=== PATIENT | female | born 1935 | race Caucasian/White ===

== ENCOUNTER → 2019-10-01 13:54 | Outpatient (BNVA) | payer MEDICARE, SELFPAY | PROVIDERS: Family Provider Nurse Practitioner; PCP Nurse Practitioner; Visit Provider Nurse Practitioner | DX: M79.604 Pain in right leg (principal) | CPT/HCPCS: 73590 ==

== ENCOUNTER 2019-10-28 06:00 | Outpatient (RCR) | payer MEDICARE, SELFPAY | END 2019-11-25 23:59 | disposition home or self-care (01) | LOC: APT 06:00 | PROVIDERS: Family Provider Nurse Practitioner; PCP Nurse Practitioner; Referring Provider Nurse Practitioner Family; Visit Provider Nurse Practitioner Family | DX: M79.604 Pain in right leg (principal); R29.6 Repeated falls | CPT/HCPCS: 97110; 97163 ==

== ENCOUNTER → 2020-02-16 13:41 | Outpatient (BNVA) | payer MEDICARE, SELFPAY | PROVIDERS: Family Provider Nurse Practitioner; PCP Nurse Practitioner; Visit Provider Nurse Practitioner Family | DX: I10 Essential (primary) hypertension (principal); F41.1 Generalized anxiety disorder; M81.0 Age-related osteoporosis without current pathological fracture | CPT/HCPCS: 80053; 80061; 82306; 84443; 85025 ==

== ENCOUNTER → 2020-02-24 15:23 | Outpatient (BNVA) | payer MEDICARE, SELFPAY | PROVIDERS: Family Provider Nurse Practitioner; PCP Nurse Practitioner; Visit Provider Nurse Practitioner Family | DX: M81.0 Age-related osteoporosis without current pathological fracture (principal); E78.5 Hyperlipidemia, unspecified; S89.92XA Unspecified injury of left lower leg, initial encounter; L08.9 Local infection of the skin and subcutaneous tissue, unspecified; M11.262 Other chondrocalcinosis, left knee | CPT/HCPCS: 73562 ==

== ENCOUNTER 2020-03-19 15:45 | Outpatient (CLI) | payer MEDICARE, SELFPAY ==
--- NOTE | 2020-03-19 16:15 | XR_ITS ---
WS: [id number] SCREENING DEXA SCAN [employer] CLINICAL INFORMATION: osteoporosis COMPARISON: 015 FINDINGS: The L1-L4 bone mineral density measures 1.417 g/cm2. This corresponds to a T score score of 2.0 and Z score of 3.9. Left femoral neck bone mineral density measures 1.046 g/cm2. This corresponds to a T score of 0.3 and Z score of 2.6. Right femoral neck bone mineral density measures 1.104 g/cm2. This corresponds to a T score 0.8of and Z score of 3.0. Mean femoral neck bone mineral density measures 1.075 g/cm2. This corresponds to a T score of 0.5 and Z score of 2.8. XR/XR DEXA axial skeleton* [id number] IMPRESSION: Normal bone mineralization. Patient's FRAX calculated 10 year probability for major osteoporotic fracture i s 12.3 % and osteoporotic hip fracture is 2.9%.
== END 2020-03-19 15:46 | disposition home or self-care (01) ==
LOC: RADWPI 15:55
PROVIDERS: Family Provider Nurse Practitioner; PCP Nurse Practitioner; Visit Provider Nurse Practitioner Family
DX: M81.0 Age-related osteoporosis without current pathological fracture (principal)
CPT/HCPCS: 77080

== ENCOUNTER → 2020-06-16 15:30 | Outpatient (BNVA) | payer MEDICARE, SELFPAY | PROVIDERS: Family Provider Nurse Practitioner; PCP Nurse Practitioner; Visit Provider Nurse Practitioner Family | DX: Z11.59 Encounter for screening for other viral diseases (principal) | CPT/HCPCS: 87635 ==

== ENCOUNTER → 2020-09-06 11:09 | Outpatient (BNVA) | payer MEDICARE, SELFPAY | PROVIDERS: Family Provider Nurse Practitioner; PCP Nurse Practitioner; Visit Provider Nurse Practitioner Family | DX: R07.9 Chest pain, unspecified (principal); F41.1 Generalized anxiety disorder; I10 Essential (primary) hypertension; E78.5 Hyperlipidemia, unspecified; Z79.899 Other long term (current) drug therapy | CPT/HCPCS: 71046; 80053; 84443; 84484; 85025 ==

== ENCOUNTER 2020-09-07 10:27 | Inpatient (IN) | payer MEDICARE, SELFPAY ==
[2020-09-07] VITALS (12 sets, daily range): BP systolic 123–180; BP diastolic 53–90; PULSE 58–74; RESP 15–22; TEMP 36.5–36.8; O2SAT 97–99; BMI 27.8
--- NOTE | 2020-09-07 10:52 | ECG_ITS ---
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 Measurements Intervals [place] Rate: 62 P: 59 MN: 141 QRS: 59 QRSD: 74 T: 64 QT: 397 QTc: 405 Interpretive Statements SINUS RHYTHM SEPTAL MYOCARDIAL INFARCTION , OF INDETERMINATE AGE [40+ ms Q WAVE IN V1/V2] No previous ECG available for comparison Electronically Signed On 09-07-2020 21:35:23 BODY WORKER by Anatoliy Brannon M.D. [id number] f
--- NOTE | 2020-09-07 10:52 | XRR_ITS ---
PROCEDURE INFORMATION: Exam: XR Chest, 1 View Exam date and time: 09/07/2020 10:53 AM Age: 84 years old Clinical indication: Dyspnea; Chest pain; Type not specified; Additional info: Chest pain/dyspnea TECHNIQUE: Imaging protocol: XR of the chest Views: 1 view. COMPARISON: CR XR chest 2V* [id number] 09/06/2020 11:09 AM FINDINGS: Lungs: No pneumonia or pulmonary edema. Pleural space: No pleural effusion or pneumothorax. Heart/Mediastinum: The cardiac silhouette is not enlarged. The mediastinal contours are normal. Bones/joints: No acute osseous abnormality. XR/XR chest 1V portable [id number] IMPRESSION: No acute abnormality.
[2020-09-07 11:12] LABS: Basophils # 0.1 10^3/uL (0.0-0.1); Basophils % 0.9 %; Eosinophils # 0.3 10^3/uL (0.0-0.8); Eosinophils % 5.1 %; Hematocrit 37.1 % (37.0-47.0); Hemoglobin 11.8 g/dL (11.5-15.3); Lymphocytes # 2.1 10^3/uL (0.8-4.8); Lymphocytes % 37.2 %; Mean Corpuscular HGB Conc 31.8 g/dL (30.0-36.0); Mean Corpuscular Hemoglobin 30.7 pg (28.0-34.0); Mean Corpuscular Volume 96.6 fL (81-99); Mean Platelet Volume 10.4 fL (7.4-10.4); Monocytes # 0.6 10^3/uL (0.2-0.9); Monocytes % 9.6 %; Neutrophils # 2.68 10^3/uL (1.8-7.7); Nucleated Red Blood Cells % 0 %; Platelet Count 196 10^3/cmm (130-400); Red Blood Count 3.84 10^6/uL (4.1-5.3); Red Cell Distribution Width 12.7 % (12.1-15.1); White Blood Count 5.7 10^3/uL (4.0-10.0)
[2020-09-07 11:23] LABS: Alanine Aminotransferase 13 U/L (0-33); Albumin Level 3.8 g/dL (3.5-5.2); Alkaline Phosphatase 53 IU/L (35-105); Anion Gap 14.6 (5-19); Aspartate Amino Transferase 20 U/L (0-32); Blood Urea Nitrogen 20 mg/dL (8-23); Carbon Dioxide 25 mmol/L (22-29); Chloride 104 mmol/L (98-107); Globulin 2.7 g/dL (1.3-4.6); Glucose 103 mg/dL (65-115); Osmolality Calculated 291 mOsm/kg (285-295); Potassium 4.6 mmol/L (3.5-5.1); Sodium 139 mmol/L (136-145); Total Bilirubin 0.2 mg/dL (0.15-1.2); Total Protein 6.5 g/dL (6.6-8.7)
[2020-09-07 11:24] LABS: Troponin(5th) Baseline 19 ng/L (0-10)
[2020-09-07 11:42] LABS: Creatinine Clr Calc Pharmacy 38.1054
--- NOTE | 2020-09-07 11:50 | ED_ITS ---
HPI - Chest Pain General: Chief Complaint: Recheck/Abnormal Lab/Rx Stated Complaint: ABNORMAL EKG Time Seen by Provider: 09/07/20 10:33 History of Present Illness: HPI narrative: 84-year-old female presents to the emergency room with complaint of intermittent chest pain and shortness of breath with exertion. This is been going on for weeks. Discussing it with her she relates that the frequency and intensity of been increasing she will get several episodes per day. Her last episode was yesterday. When she does get the episodes it radiates into her left arm. She does get short of breath with it she does not get diaphoretic or nauseous with it. She has no known history of coronary artery disease she is does not think she is ever been screened for. She has a history of hypertension. MD complaint: chest pain Onset (ago): week(s) Timing of current episode: episodic and now resolved Onset: during exertion Pain location: left chest Pain radiation: left arm Severity: moderate Quality: tightness and heaviness Relieving factors: rest Exacerbating factors: exertion Associated symptoms: Reports dyspnea; Deny abdominal pain, diaphoresis, fever(s), leg edema, nausea, palpitations, sense of impending doom, syncope or vomiting Treatment prior to arrival: none Review of Systems Const: Denies: fever(s) or diaphoresis ENMT: Denies: throat pain, ear or mastoid pain, nasal discharge or nasal congestion Card: Denies: palpitations or syncope Resp: Reports: dyspnea GI: Denies: abdominal pain, nausea or vomiting : Denies: flank pain, difficulty voiding, dysuria, urinary frequency or urinary urgency Skin/Breast: Denies: rash or pruritus [facility] ED PFSH: Medical History (Updated 09/07/20 @ 13:15 by Lobo Aguirre DO) Age related osteoporosis COPD (chronic obstructive pulmonary disease) Dyslipidemia Generalized anxiety disorder HTN (hypertension) Hypersomnia with sleep apnea Nocturnal hypoxemia w/ O2 at 2 litters Family History Brother Cancer brain tumor Other Diabetes Hypertension Social History Smoking and tobacco status: never smoked Alcohol intake: never Adopted: No Lives independently: Yes Household members: family Housing: House Marital status: / Number of children: 4 Number of grandchildren: 11 Highest education level completed: Some College, No Degree service: No Current occupational status: employed and retired History of recent travel: No Leatha/Quaker: Quaker Physical Exam Const: COMMON NORMALS: no acute distress GENERAL APPEARANCE: cooperative and comfortable ORIENTATION/CONSCIOUSNESS: Yes awake, Yes oriented to person, Yes oriented to place and Yes oriented to time HENMT: COMMON NORMALS: normocephalic, atraumatic and hearing grossly normal bilaterally HEAD & SCALP: normocephalic and atraumatic Eye: COMMON NORMALS: Equal, round and reactive pupils present, EOMs intact bilaterally, conjunctivae normal and no scleral icterus CONJUNCTIVA: Yes conjunctivae normal PUPIL: Yes Equal, round and reactive pupils present Neck/C-Spine: COMMON NORMALS: full ROM, no lymphadenopathy, supple and no JVD Lymph: LYMPHATIC: no lymphadenopathy noted and no lymphedema noted Resp: COMMON NORMALS: normal respiratory effort, No retractions, No use of accessory muscles and clear to auscultation bilaterally AUSCULTATION: clear to auscultation bilaterally Cardio: COMMON NORMALS: no JVD, regular rate, regular rhythm and No murmurs present (Cardio) RATE: regular rate RHYTHM: regular rhythm GI: COMMON NORMALS: Soft to palpation and No hepatosplenomegaly present AUSCULTATION: Yes normoactive bowel sounds PALPATION: Yes Soft to palpation, No Tenderness to palpation present (GI), No Guarding due to palpation present (GI) and Yes No hepatosplenomegaly present Extremity: COMMON NORMALS: normal to inspection, capillary refill normal, no clubbing, cyanosis or edema, no calf tenderness and no pedal edema Neuro: SENSORIUM/ORIENTATION: Yes oriented to person, Yes oriented to place and Yes oriented to time Skin: COMMON NORMALS: no rashes or lesions noted GENERAL SKIN EXAM: no rashes or lesions noted Course Vital Signs: Vital signs: Vital Signs Temperature 98.2 F 09/07/20 10:30 Pulse Rate 58 L 09/07/20 12:11 Respiratory Rate 15 09/07/20 12:11 Blood Pressure 124/90 09/07/20 12:11 Pulse Oximetry 98 09/07/20 12:11 MDM - Chest Pain MDM Narrative: Medical decision making narrative: Patient has a heart score of 6 her troponin is slightly elevated her delta is normal given the character and description of her symptoms and her heart score will place her in observation for the 6-hour troponin and further evaluation of her chest pain. Lab Data: Labs: Lab Results 09/07/20 09/07/20 09/07/20 Range/Units 10:55 10:55 10:55 WBC 5.7 (4.0-10.0) 10^3/ uL RBC 3.84 L (4.1-5.3) 10^6/u L Hgb 11.8 (11.5-15.3) g/dL Hct 37.1 (37.0-47.0) % MCV 96.6 (81-99) fL MCH 30.7 (28.0-34.0) pg MCHC 31.8 (30.0-36.0) g/dL RDW 12.7 (12.1-15.1) % Plt Count 196 (130-400) 10^3/c mm MPV 10.4 (7.4-10.4) fL Neut % (Auto) 47.0 % Lymph % (Auto) 37.2 % [place] % (Auto) 9.6 % Eos % (Auto) 5.1 % Baso % (Auto) 0.9 % Neut # (Auto) 2.68 (1.8-7.7) 10^3/u L Lymph # (Auto) 2.1 (0.8-4.8) 10^3/u L [place] # (Auto) 0.6 (0.2-0.9) 10^3/u L Eos # (Auto) 0.3 (0.0-0.8) 10^3/u L Baso # (Auto) 0.1 (0.0-0.1) 10^3/u L Nucleated RBC % (a uto) 0 % Nucleated RBCs # 0.0 /100WBC Sodium 139 (136-145) mmol/L Potassium 4.6 (3.5-5.1) mmol/L Chloride 104 (98-107) mmol/L Carbon Dioxide 25 (22-29) mmol/L Anion Gap 14.6 (5-19) BUN 20 (8-23) mg/dL Creatinine 1.0 H (0.5-0.9) mg/dL GFR Calculation Not Reportable Glucose 103 (65-115) mg/dL Calculated Osmolal ity 291 (285-295) mOsm/k g Calcium 9.0 (8.5-10.5) mg/dL Total Bilirubin 0.2 (0.15-1.2) mg/dL AST 20 (0-32) U/L ALT 13 (0-33) U/L Alkaline Phosphata se 53 (35-105) IU/L Troponin T Baselin e 19 H (0-10) ng/L Total Protein 6.5 L (6.6-8.7) g/dL Albumin 3.8 (3.5-5.2) g/dL Globulin 2.7 (1.3-4.6) g/dL Discharge Plan Discharge Patient Disposition: Placed in Observation Clinical Impression: Angina pectoris, HTN (hypertension), Generalized anxiety disorder, Dyslipidemia Coding Level of Care Code ED Freight Dispatcher for Justin Fwmarino Exam Comprehensive
--- NOTE | 2020-09-07 12:52 | ECG_ITS ---
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 Measurements Intervals [place] Rate: 56 P: 50 IA: 145 QRS: 51 QRSD: 76 T: 58 QT: 416 QTc: 404 Interpretive Statements SINUS BRADYCARDIA NONSPECIFIC T-WAVE ABNORMALITY Compared to ECG 09/07/2020 10:47:21 T-wave abnormality now present Sinus rhythm no longer present Myocardial infarct finding no longer present Electronically Signed On 09-07-2020 21:48:05 STRAW HAT BRIM CUTTER OPERATOR by Anatoliy Brannon M.D. [id number]
[2020-09-07 14:07] LABS: Troponin 5 2HR 18.07 ng/L (0-10)
[2020-09-07 14:09] LABS: Troponin 5 2HR Delta -0.93 ABS# (0-10)
--- NOTE | 2020-09-07 16:13 | P.HP_ITS ---
Providers/Chief Complaint Primary Care Provider: Darcie Martinez, WEB USER EXPERIENCE STRATEGIST-C Chief Complaint: ABNORMAL EKG History of Present Illness Karen Sharp is a 84 year old female with PMH of HTN, COPD, LAURENCE, DLD, came in with c/o intermittent chest pain and shortness of breath with exertion. This is been going on for weeks.Discussing it with her she relates that the frequency and intensity of been increasing she will get several episodes per day. Her last episode was yesterday. When she does get the episodes it radiates into her left arm. She does get short of breath with it she does not get diaphoretic or nauseous with it. She has no known history of coronary artery disease she is does not think she is ever been screened for. ECA Course: EKG : SINUS BRADYCARDIA , NONSPECIFIC T-WAVE ABNORMALITY. Chest Xray : No acute abnormality. Troponin : Baseline : 19, 2H : 18, Delta 2 H: -0.93 , 6H: 17 DELTA 6H : -1.3 Rapid COVID :Negative Proacl: 0.04 Review of Systems Const: Denies: fever(s), chills, body aches, change in appetite or diaphoresis Card: Denies: orthopnea or leg pain with exertion Resp: Denies: productive cough, wheezing or pain on inspiration GI: Denies: abdominal pain, nausea, vomiting, diarrhea or constipation : Denies: flank pain Musc: Denies: back pain, extremity pain or extremity swelling Neuro: Denies: headache(s), difficulty walking or confusion Medications/Allergies Home Medications Medication Instructions Recorded Confirmed Last Taken Type albuterol sulfate 90 mcg/actuation 2 puff INHALATION Q6H PRN 09/10/19 09/07/20 Unknown History aerosol inhaler ascorbic acid (vitamin C) 250 mg 250 mg PO DAILY@08 tab 09/10/19 09/07/20 09/06/20 History tablet calcium carbonate 500 mg calcium 500 mg PO DAILY@08 tab 09/10/19 09/07/20 09/06/20 History (1,250 mg) chewable tablet omega-3 fatty acids 500 mg capsule 500 mg PO DAILY@08 cap 09/10/19 09/07/20 09/06/20 History blood pressure monitor #1 each 10/31/19 09/07/20 Unknown Rx cholecalciferol (vitamin D3) 25 mcg PO DAILY@09/07/20 09/07/20 09/06/20 History [Vitamin D3] duloxetine 20 mg PO BEDTIME@0000 09/07/20 09/07/20 09/06/20 History lactobacillus combination no.4 3,000 mmu cells PO DAILY@09/07/20 09/07/20 09/07/20 History [Probiotic] lisinopril 10 mg PO DAILY@09/07/20 09/07/20 09/06/20 History multivitamin 1 tab PO DAILY@09/07/20 09/07/20 09/06/20 History Allergies Allergy/AdvReac Type Severity Reaction Status Date / Time adhesive tape Allergy ALGY-Rash Verified 09/07/20 10:40 PFSH Acute PFSH: Medical History (Updated 09/08/20 @ 12:49 by Abhijit Perez MD) Age related osteoporosis COPD (chronic obstructive pulmonary disease) Dyslipidemia Generalized anxiety disorder HTN (hypertension) Hypersomnia with sleep apnea Nocturnal hypoxemia w/ O2 at 2 litters Family History Brother Cancer brain tumor Other Diabetes Hypertension Social History Smoking and tobacco status: never smoked Alcohol intake: never Adopted: No Lives independently: Yes Household members: family Housing: House Marital status: / Number of children: 4 Number of grandchildren: 11 Highest education level completed: Some College, No Degree service: No Current occupational status: employed and retired History of recent travel: No Leatha/Hindu: Rastafarian Vitals/I&O/Wt Last Vital Signs Temp 98.2 F 09/07/20 10:30 Pulse 62 09/07/20 15:40 Resp 18 09/07/20 15:40 BP 136/67 09/07/20 15:40 Pulse Ox 97 09/07/20 15:40 Weight last 48 hrs Weight 68.946 kg Physical Exam Const: COMMON NORMALS: patient oriented x3 HENMT: COMMON NORMALS: normocephalic and atraumatic Chest: CHEST: Yes Symmetrical chest wall rise Resp: COMMON NORMALS: normal respiratory effort, No retractions, No use of accessory muscles and clear to auscultation bilaterally EFFORT & INSPECTION: Yes symmetric chest movement AUSCULTATION: clear to auscultation bilaterally Cardio: COMMON NORMALS: regular rate, regular rhythm, S1 normal heart sound present, S2 normal heart sound present, No gallops present (Cardio), No murmurs present (Cardio), No rub (Cardio) and Peripheral pulses 2+ throughout RATE: regular rate RHYTHM: regular rhythm HEART SOUNDS: S1 normal heart sound present and S2 normal heart sound present PERIPHERAL PULSES: Peripheral pulses 2+ throughout GI: COMMON NORMALS: Normal to inspection, nondistended, normoactive bowel sounds present, Soft to palpation, non-tender, No hepatosplenomegaly present and no masses AUSCULTATION: Yes normoactive bowel sounds PALPATION: Yes Soft to palpation and Yes No hepatosplenomegaly present RECTAL EXAM: deferred Extremity: COMMON NORMALS: no clubbing, cyanosis or edema and no pedal edema Neuro: COMMON NORMALS: patient oriented x3 Data : 09/08/20 04:18 09/08/20 04:18 A&P Assessment and plan (1) Chest pain: Patient describes Typical chest pain, based on history. R/ F Inculdes: HTN, DLD, Age , Plan : 2D Echo Tele Possible Stress Test Continue Aspirin Atorvas 20 mg po daily Nitro subligual PRN Status: Acute (2) Pre-syncope: Patient gives h/o Lightheadedness as well h/o recurrent fall. Will Get carotid doppler Tele 2DECHO Status: Acute (3) HTN (hypertension): Lisiniopril 10 mg po daily Status: Chronic (4) COPD (chronic obstructive pulmonary disease): Status: Acute (5) Dyslipidemia: Status: Acute Additional A&P Information Code Status :Full code DVT PPX: Lovenox 40 mg sc daily Disposition:Home. 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
--- NOTE | 2020-09-07 16:52 | ECG_ITS ---
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 Measurements Intervals [place] Rate: 57 P: 69 VT: 141 QRS: 51 QRSD: 78 T: 58 QT: 423 QTc: 415 Interpretive Statements SINUS BRADYCARDIA Compared to ECG 09/07/2020 14:49:16 T-wave abnormality no longer present Electronically Signed On 09-07-2020 21:49:58 CALENDER ROLL OPERATOR by Anatoliy Brannon M.D. [id number]
[2020-09-07] MEDS: albuterol 8 gm MDI 2 PUFF INHALATION (20:02)
[2020-09-08] VITALS (11 sets, daily range): BP systolic 94–122; BP diastolic 48–68; PULSE 59–84; RESP 17–19; TEMP 36.5–37.1; O2SAT 94–98
[2020-09-08] MEDS: albuterol 8 gm MDI 2 PUFF INHALATION ×2 (01:20→08:25)
[2020-09-08] MEDS: acetaminophen 325 mg Tablet 650 MG PO ×2 (01:44→11:27)
[2020-09-08 05:28] LABS: Basophils % 0.6 %; Eosinophils # 0.2 10^3/uL (0.0-0.8); Eosinophils % 3.1 %; Hematocrit 32.3 % (37.0-47.0); Hemoglobin 10.3 g/dL (11.5-15.3); Lymphocytes # 2.2 10^3/uL (0.8-4.8); Lymphocytes % 32.5 %; Mean Corpuscular HGB Conc 31.9 g/dL (30.0-36.0); Mean Corpuscular Hemoglobin 30.7 pg (28.0-34.0); Mean Corpuscular Volume 96.1 fL (81-99); Mean Platelet Volume 10.8 fL (7.4-10.4); Monocytes # 0.7 10^3/uL (0.2-0.9); Monocytes % 9.7 %; Neutrophils # 3.61 10^3/uL (1.8-7.7); Neutrophils % 53.8 %; Nucleated Red Blood Cells % 0 %; Platelet Count 185 10^3/cmm (130-400); Red Blood Count 3.36 10^6/uL (4.1-5.3); Red Cell Distribution Width 12.8 % (12.1-15.1); White Blood Count 6.7 10^3/uL (4.0-10.0)
[2020-09-08 05:48] LABS: Partial Thromboplastin Time 28.7 SECONDS (23.9-36.7)
[2020-09-08 05:52] LABS: Alanine Aminotransferase 11 U/L (0-33); Albumin Level 3.5 g/dL (3.5-5.2); Alkaline Phosphatase 46 IU/L (35-105); Anion Gap 13.4 (5-19); Aspartate Amino Transferase 18 U/L (0-32); Blood Urea Nitrogen 17 mg/dL (8-23); Calcium 8.8 mg/dL (8.5-10.5); Carbon Dioxide 25 mmol/L (22-29); Chloride 106 mmol/L (98-107); Globulin 2.1 g/dL (1.3-4.6); Glucose 92 mg/dL (65-115); Magnesium 1.9 mg/dL (1.7-2.3); Osmolality Calculated 291 mOsm/kg (285-295); Potassium 4.4 mmol/L (3.5-5.1); Sodium 140 mmol/L (136-145); Total Bilirubin 0.2 mg/dL (0.15-1.2); Total Protein 5.6 g/dL (6.6-8.7)
--- NOTE | 2020-09-08 06:00 | USCV_ITS ---
Karen Sharp Age: 84 Gender: F : 1935 Exam Date: 09/08/2020 05:32 Ordering Phys: Abhijit Perez MD Technologist: Una Munoz [place] [facility] [place]: CHEST PAIN BP: 95 / 54 HR: 63 Rhythm: Sinus Technical Quality: Adequate MEASUREMENTS (Male / Female) Normal Values 2D ECHO LV Diastolic Diameter PLAX 4.5 cm 4.2 - 5.9 / 3.9 - 5.3 cm LV Systolic Diameter PLAX 2.0 cm LV Chamber Size 2.7 cm IVS Diastolic Thickness 1.1 cm 0.6 - 1.0 / 0.6 - 0.9 cm IVS Systolic Thickness 1.8 cm LVPW Diastolic Thickness 1.0 cm 0.6 - 1.0 / 0.6 - 0.9 cm LVPW Systolic Thickness 1.6 cm RV Chamber Size 2.3 cm LVOT Diameter 2.0 cm LV Ejection Fraction 2D Teich 86.4 % LV Ejection Fraction MOD 2C 77.6 % LV Ejection Fraction 2C AL 77.3 % LA Diameter 3.5 cm LA Width 2.2 cm LA Height 4.3 cm RA Width 3.1 cm RA Height 2.7 cm Aorta at Sinotubular Diameter 2.5 cm M-MODE LV Diastolic Diameter MM 4.9 cm 4.2 - 5.9 / 3.9 - 5.3 cm LV Systolic Diameter MM 3.1 cm LV Ejection Fraction MM Teich 65.5 % IVS Diastolic Thickness MM 1.1 cm 0.6 - 1.0 / 0.6 - 0.9 cm IVS Systolic Thickness MM 1.7 cm LVPW Diastolic Thickness MM 0.8 cm 0.6 - 1.0 / 0.6 - 0.9 cm LVPW Systolic Thickness MM 1.6 cm RV Diastolic Diameter MM 1.1 cm Aortic Annulus Diameter 2.9 cm LA Ao Ratio MM 1.3 MV E Point Septal Separation 0.3 cm DOPPLER AV Peak Velocity 185.7 cm/s LVOT Peak Velocity 115.0 cm/s AV Area Cont Eq vti 2.5 cm squared AV Area Cont Eq pk 2.0 cm squared MV Area PHT 2.7 cm squared Mitral E to A Ratio 0.9 MV E' Velocity 37.5 cm/s Mitral E to MV E' Ratio 8.6 Mitral E to LV E' Lateral Ratio 10.9 Mitral E to LV E' Septal Ratio 7.2 TR Peak Velocity 221.6 cm/s TR Peak Gradient 19.6 mmHg TR Mean Velocity 168.4 cm/s TR Mean Gradient 12.6 mmHg TR Velocity Time Integral 65.9 cm TV Peak E Velocity 70.0 cm/s Right Atrial Pressure 3.0 mmHg Pulmonary Artery Systolic Pressu 22.6 mmHg PV Peak Velocity 93.0 cm/s RV Acceleration Time 0.1 s RV Ejection Time 0.4 s RV AcT/ET 0.2 FINDINGS Left Ventricle Normal left ventricular size and systolic function.no regional wall motion abnormalities are present. LVEF is 60 to 65%. Grade 1 diastolic dysfunction is seen.. Right Ventricle The right ventricle is normal in size and function. Right Atrium The right atrium is normal in size. Left Atrium The left atrium is normal in size. Mitral Valve Structurally normal mitral valve without significant stenosis or prolapse. There is no mitral regurgitation. Aortic Valve Structurally normal aortic valve without significant sclerosis or stenosis. There is no aortic regurgitation. Tricuspid Valve Structurally normal tricuspid valve without significant stenosis. Mild tricuspid regurgitation is seen. Insufficient TR jet to calculate RVSP. Pulmonic Valve Structurally normal pulmonic valve without significant stenosis. There is trace pulmonic regurgitation. Pericardium Normal pericardium without effusion. Aorta Normal ascending aorta dimension. CONCLUSIONS LV systolic function is normal with EF of 60 to 65%. Grade 1 diastolic dysfunction is seen. No significant valvular heart disease is present. Mild tricuspid regurgitation is seen. No comparison studies are available. Cirilo Beltran MD (Electronically Signed) Final Date: 08 September 2020 10:07 S
[2020-09-08 06:35] LABS: Procalcitonin 0.04 ng/mL (0-0.5)
[2020-09-08] MEDS: ascorbic acid 500 mg Tablet 250 MG PO (08:50)
[2020-09-08] MEDS: calcium carbonate 500 mg Chew Tablet PO (08:50)
[2020-09-08] MEDS: pantoprazole DR 40 mg Tablet PO (08:51)
[2020-09-08] MEDS: cholecalciferol (vitamin D3) 1,000 unit Tablet 1000 UNIT PO (08:51)
[2020-09-08] MEDS: lisinopril 10 mg Tablet PO (08:51)
[2020-09-08] MEDS: multivitamin therapeutic Tablet 1 TAB PO (08:51)
--- NOTE | 2020-09-08 09:42 | PC.CHAP ---
Pastoral Care Encounter/Spiritual Assessment Type of Contact [] Declined credit front office developer visit [] Patient/Family/Request visit [] Outpatient visit [] Follow-up visit [] Physician referral [] Code/Alert [x] Routine visit [] Staff referral [] Actively dying [] Patient sleeping [] Family support [] [] Out of room [] Palliative care [] [] Receiving care in room [] Pre-surgical visit [] Trauma [] Long length of stay [] ICU visit [] Other: Relational/Emotional Strength [x] Patient feels connected with others/family/visitors/staff [] Distress [] Loneliness/isolation [] Abandonment Spirituality of Patient [x] Person of Leatha [] Attends Amish of their Leatha [] Believes in Prayer [] Reads Bible or Scientologist materials [] There are Spiritual issues to be addressed Smokehouse Operator Interventions [x] Prayer [] Active listening [] Non-anxious presence [] Spiritual/emotional support [] Crisis/trauma care [] Spiritual counseling [] Bereavement support [] Provided bereavement packet [] Provided Bible/devotional materials [] Provided toy/stuffed animal, coloring book to patient or family member [] Provided Communion [] Anointing/Lee [] Salvation [x] Completed spiritual assessment [] Other: Impact on Illness or Injury [] Angry [] Fearful [] Anxious [] Often cries [] Exhaustion [] Unable to work [] Unable to attend sabianist [] Unable to walk/stand [] Unable to read [] Unable to drive [] Unable to eat/drink [] Unable to sleep [] Unable to be with family [] Patient intubated [] Other: Summary not feeling good Time spent with patient 10 min
--- NOTE | 2020-09-08 10:43 | USCV_ITS ---
Sharp Karen Age: 84 Gender: F : 1935 Exam Date: 09/08/2020 16:31 Ordering Phys: Abhijit Perez MD Technologist: Baron Damon Exam Location[place] [facility] [place] Indication: RECURRENT FALL WITH PRESYNCOPE Risk Factors: Previous Vascular Surgery: Right Brachial BP: / Left Brachial BP: / Right Left Velocity (cm/s) Spectral Plaque Velocity (cm/s) Spectral Plaque Syst/Diast Broadening Syst/Diast Broadening / Prox CCA 64.50 / 14.00 62.40/ 12.80 Mid CCA 61.40 / 16.30 76.00/ 12.80 Distal CCA 69.10 / 14.80 115.40/29.90 Prox ICA 74.60 / 24.10 130.10/29.80 Mid ICA 128.80/ 38.10 116.90/30.90 Distal ICA 134.10/ 43.40 94.80 ECA 62.00 1.48 ICA/CCA 1.94 Antegrade Vertebral Antegrade 48.90/ 14.80 cm/s 51.30/ 17.90 cm/s Bi Subclavian Bi 123.5 94.00 0 CONCLUSIONS Right ICA stenosis 50-69% at the lower end of the range. Moderate atheromatous plaque right carotid bulb/ICA. Left ICA stenosis 50-69%. at the lower end of the range. Moderate atheromatous plaque left carotid bulb/ICA. Normal antegrade Doppler flow noted in the right vertebral artery. Normal antegrade Doppler flow noted in the left vertebral artery. Joseph Martin MD (Electronically Signed) Final Date: 09 September 2020 17:48 S
[2020-09-08] MEDS: aspirin 81 mg EC Tablet PO (11:25)
--- NOTE | 2020-09-08 12:33 | PC.RESP ---
Smoking Cessation information sent to patient.
--- NOTE | 2020-09-08 13:12 | P.PN_ITS ---
Subjective Subjective: Interval history: Patient had one episode of lt sided chest pain.She deny any other complain. Medications: Reviewed: Yes Vitals/I&O/Wt Last Vital Signs Temp 98.8 F 09/08/20 12:00 Pulse 60 09/08/20 12:00 Resp 18 09/08/20 12:00 BP 108/55 09/08/20 12:00 Pulse Ox 96 09/08/20 12:00 09/07/20 09/08/20 09/08/20 22:59 06:59 14:59 Intake Total 120 / 120 240 / 240 Balance 120 / 120 240 / 240 Weight last 48 hrs Weight 68.81 kg Weight 68.946 kg Physical Exam Const: COMMON NORMALS: patient oriented x3 HENMT: COMMON NORMALS: normocephalic and atraumatic HEAD & SCALP: normocephalic and atraumatic Chest: CHEST: Yes Symmetrical chest wall rise Resp: COMMON NORMALS: clear to auscultation bilaterally AUSCULTATION: clear to auscultation bilaterally Cardio: COMMON NORMALS: regular rate, regular rhythm, S1 normal heart sound present, S2 normal heart sound present, No gallops present (Cardio), No murmurs present (Cardio), No rub (Cardio) and Peripheral pulses 2+ throughout RATE: regular rate RHYTHM: regular rhythm HEART SOUNDS: S1 normal heart sound present and S2 normal heart sound present PERIPHERAL PULSES: Peripheral pulses 2+ throughout GI: COMMON NORMALS: Normal to inspection, nondistended, normoactive bowel sounds present, Soft to palpation, non-tender, No hepatosplenomegaly present and no masses AUSCULTATION: Yes normoactive bowel sounds PALPATION: Yes Soft to palpation and Yes No hepatosplenomegaly present RECTAL EXAM: deferred Extremity: COMMON NORMALS: no clubbing, cyanosis or edema and no pedal edema Neuro: COMMON NORMALS: patient oriented x3 Data : 09/08/20 04:18 09/08/20 04:18 A&P Assessment and plan (1) Chest pain: Patient describes Typical chest pain, based on history. R/ F Inculdes: HTN, DLD, Age , Plan : 2D Echo:LV systolic function is normal with EF of 60 to 65%. Grade 1 diastolic dysfunction is seen. No significant valvular heart disease is present. Mild tricuspid regurgitation is seen. Tele : Stress Test Am : Continue Aspirin Atorvas 20 mg po daily Nitro subligual PRN Status: Acute (2) Pre-syncope: Patient gives h/o Lightheadedness as well h/o recurrent fall. Will Get carotid doppler Tele 2DECHO Status: Acute (3) HTN (hypertension): Lisiniopril 10 mg po daily Status: Chronic (4) COPD (chronic obstructive pulmonary disease): Status: Acute (5) Dyslipidemia: Status: Acute Additional A&P Information Code Status :Full code DVT PPX: Lovenox 40 mg sc daily Disposition:Home. Attestations Medical Necessity Statement*: Patient needs to be in hospital for chest pain work up and management. Coding Level of Care Code Acute Commodity Management Specialist for Justin Oconnell Diagnoses Chest pain R07.9 Pre-syncope R55 HTN (hypertension) I10 COPD (chronic obstructive pulmonary disease) J44.9 Dyslipidemia E78.5
--- NOTE | 2020-09-08 13:13 | ECG_ITS ---
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 Interpretive Statements NAME OF STUDY: LEXISCAN SESTAMIBI STRESS TEST INDICATION: Chest Pain PROCEDURE: At the baseline, the EKG revealed sinus bradycardia with a rate of 59 bpm. Some nonspecific T wave changes. The baseline blood pressure was 148/63 mm Hg with a heart rate of 59 beats/min. Lexiscan was infused over a period of 20 seconds. A total of 0.4 milligrams of Lexiscan was infused. The stress phase was continued for a total of 5 minutes. Heart rate at the end of the stress phase was 71 with a blood pressure 143/53. The EKG at the peak infusion revealed some nonspecific ST-T changes. Sestamibi was injected 20 seconds ater the Lexiscan infusion. Blood pressure at the end of the recovery phase was 145/51 with a heart rate of 69 per minute. CONCLUSION: 1. Nonspecific EKG changes with the LexiScan infusion 2. No LexiScan induced chest pain or cardiac arrhythmia 3. Normal blood pressure and heart rate response 4. Sestamibi/sestamibi perfusion scan pending; see separate report. Electronically Signed On 09-10-2020 13:52:46 ADULT LITERACY TEACHER by Anatoliy Brannon M.D. [id number]
--- NOTE | 2020-09-08 16:02 | PC.NURSE ---
Neeru Ashley CNA came and reported that she was having difficulty obtaining the BP on this patient. I obtained the BP manually with the patient in a sitting position to the right arm. BP was 122/48. She has been up ambulating a couple of times today and denies any s/s of hypotension. I informed Neeru Ashley CNA of the BP as well as Kristel Dubose RN. Patient denies any further needs at this time.
[2020-09-08] MEDS: enoxaparin 40 mg/0.4 mL Syringe SUBCUT (21:13)
[2020-09-08] MEDS: duloxetine 20 mg Capsule PO (21:13)
[2020-09-09] VITALS (16 sets, daily range): BP systolic 100–145; BP diastolic 49–69; PULSE 59–72; RESP 13–18; TEMP 36.3–36.7; O2SAT 78–99
--- NOTE | 2020-09-09 | NMCV_ITS ---
NM neil perf SPECT r/s* [id number] Karen Sharp Age: 84 Gender: F : 1935 Exam Date: 09/09/2020 07:07 Ordering Phys: Abhijit Perez MD Technologist: OLGA Srivastava Exam Location: [facility] Indications: Abnormal EKG STRESS TEST Please see separate stress test report in [facility] for full findings IMAGE PROTOCOL Rest/Stress 1 Lexiscan Day Radiopharmaceutical Dose (mCi) Administration Site Administered by Rest: Tc-99m 10.8 IV OLGA Srivastava Sestamibi Stress:Tc-99m 32.6 IV OLGA Srivastava Sestamibi Rest: 09-Sep-2020 60 Discovery 630 Stress: 09-Sep-2020 45 Discovery 630 0.4mg Lexiscan. Supine position only as patient was unable to lay prone. SPECT RESULTS Technical Quality: Excellent Raw Data Analysis: Normal Image Corrections: No attenuation or motion correction applied Summed Stress Score: 2 Summed Rest Score: 1 Summed Difference Score: 1 PERFUSION FINDINGS Small areas of decreased tracer uptake was noted in the apical lateral and apical inferior wall regions. Some reversibility was noted in the apical lateral region FUNCTIONAL RESULTS (calculated via Gated SPECT) Stress Image LV EF (%): 75 Stress EDV (mL):51 TID: 0.9 Stress ESV (mL):13 FUNCTIONAL FINDINGS: Segmental wall motion analysis revealed no gross wall motion normalities. IMPRESSIONS #1. Myocardial perfusion imaging revealing a small area of persistent decreased tracer uptake in the apical lateral and apical inferior wall regions with a subtle area of reversibility in the apical lateral region suggestive of ischemia in the distribution of the left circumflex artery distribution. #2. Normal LV ejection fraction of 75%. #3. LV wall motion analysis revealing no gross wall motion normalities. #4. Normal LV volume. No similar previous studies are available for comparison Dr Anatoliy Brannon MD [facility] (Electronically Signed) Final Date: 09 September 2020 17:58 S
[2020-09-09 05:29] LABS: Basophils % 0.7 %; Eosinophils # 0.2 10^3/uL (0.0-0.8); Hematocrit 32.3 % (37.0-47.0); Hemoglobin 10.4 g/dL (11.5-15.3); Lymphocytes % 49.7 %; Mean Corpuscular HGB Conc 32.2 g/dL (30.0-36.0); Mean Corpuscular Hemoglobin 31.1 pg (28.0-34.0); Mean Corpuscular Volume 96.7 fL (81-99); Monocytes # 0.5 10^3/uL (0.2-0.9); Monocytes % 9.1 %; Neutrophils # 2.17 10^3/uL (1.8-7.7); Neutrophils % 36.3 %; Nucleated Red Blood Cells % 0 %; Platelet Count 188 10^3/cmm (130-400); Red Blood Count 3.34 10^6/uL (4.1-5.3); Red Cell Distribution Width 12.9 % (12.1-15.1)
[2020-09-09 05:57] LABS: Chol HDL Ratio 3.49 mg/dL (0.0-4.40); Cholesterol 185 mg/dL (0-200); HDL Cholesterol 53 mg/dL (60-100); LDL Cholesterol Calculated 111 mg/dL (50-129); LDL HDL Ratio 2.09 RATIO (0.00-3.22); Triglycerides 104 mg/dL (0-150)
[2020-09-09 06:04] LABS: Alanine Aminotransferase 11 U/L (0-33); Albumin Level 3.4 g/dL (3.5-5.2); Alkaline Phosphatase 48 IU/L (35-105); Anion Gap 12.2 (5-19); Aspartate Amino Transferase 17 U/L (0-32); Blood Urea Nitrogen 21 mg/dL (8-23); Carbon Dioxide 25 mmol/L (22-29); Chloride 107 mmol/L (98-107); Globulin 2.2 g/dL (1.3-4.6); Glucose 106 mg/dL (65-115); Osmolality Calculated 293 mOsm/kg (285-295); Potassium 4.2 mmol/L (3.5-5.1); Sodium 140 mmol/L (136-145); Total Bilirubin 0.2 mg/dL (0.15-1.2); Total Protein 5.6 g/dL (6.6-8.7)
[2020-09-09] MEDS: regadenoson 0.4 Mg/5 ml Syringe IVP (08:06)
[2020-09-09] MEDS: ascorbic acid 500 mg Tablet 250 MG PO (10:04)
[2020-09-09] MEDS: calcium carbonate 500 mg Chew Tablet PO (10:05)
[2020-09-09] MEDS: aspirin 81 mg EC Tablet PO (10:05)
[2020-09-09] MEDS: multivitamin therapeutic Tablet 1 TAB PO (10:05)
[2020-09-09] MEDS: pantoprazole DR 40 mg Tablet PO (10:05)
[2020-09-09] MEDS: cholecalciferol (vitamin D3) 1,000 unit Tablet 1000 UNIT PO (10:05)
[2020-09-09] MEDS: lisinopril 10 mg Tablet PO (10:06)
--- NOTE | 2020-09-09 11:57 | PM.PN ---
Subjective Subjective: Interval history: Hospital course, vitals noted. Patient denies any chest pain, difficulty breathing. Stress test done today morning. Results awaited. Maintaining saturation on room air. Has remained afebrile and medically stable. Medications: Reviewed: Yes Vitals/I&O/Wt Last Vital Signs Temp 97.4 F L 09/09/20 11:41 Pulse 59 L 09/09/20 11:41 Resp 16 09/09/20 11:41 BP 134/61 09/09/20 11:41 Pulse Ox 99 09/09/20 11:41 09/08/20 09/09/20 09/09/20 22:59 06:59 14:59 Intake Total 240 / 720 240 / 960 Balance 240 / 720 240 / 960 Weight last 48 hrs Weight 69.853 kg Weight 68.81 kg Physical Exam Narrative: EXAM NARRATIVE: General: No acute distress, AO x3, pleasant HEENT: PERRLA, pupils bilaterally equal and reactive Chest: Normal vesicular breath sounds, no added sounds, equal good air entry bilaterally CVS: S1-S2 regular, no murmurs, no tachycardia, no gallops, no rubs Abdomen: Soft, nontender, no organomegaly, bowel sounds present Neuro: No focal deficits, no facial deformity, AO x3, power 5/5 in all limbs Data : 09/09/20 04:09 09/09/20 04:09 A&P Assessment and plan (1) Chest pain: Typical chest pain. Risk factors include hyperlipidemia, hypertension, age. Echo results appreciated. Stress test done today morning. Results concerning for positive stress test with possible ischemia in LCx territory. We will consult cardiology for further evaluation and treatment. Change admission to inpatient. Continue with aspirin, statin. Patient is chest pain-free. 2D Echo:LV systolic function is normal with EF of 60 to 65%. Grade 1 diastolic dysfunction is seen. No significant valvular heart disease is present. Mild tricuspid regurgitation is seen. Nitro subligual PRN Status: Acute (2) Pre-syncope: Continue telemetry. Orthostatic blood pressure check. Status: Acute (3) HTN (hypertension): Goal blood pressure less than 140/90 emergency. Continue home dose Lisiniopril 10 mg po daily Status: Chronic (4) COPD (chronic obstructive pulmonary disease): Status: Acute (5) Dyslipidemia: Status: Acute Additional A&P Information Code Status :Full code DVT PPX: Lovenox 40 mg sc daily Disposition:Home. Attestations Medical Necessity Statement*: Patient needs further hospitalization for evaluation of positive stress test in setting of chest pain. Time Spent in Patient Care: Greater than 35 minutes (>than 50% of time spent in counselling and/or direct pt care on unit). Coding Level of Care Code Acute Computer Software Engineer for Anithag Fwd Diagnoses Chest pain R07.9 Pre-syncope R55 HTN (hypertension) I10 COPD (chronic obstructive pulmonary disease) J44.9 Dyslipidemia E78.5
[2020-09-09] MEDS: enoxaparin 40 mg/0.4 mL Syringe SUBCUT (16:32)
--- NOTE | 2020-09-09 19:42 | P.CONIM_ITS ---
Providers/Reason For Consult Consulting Physican/Specialty*: Cardiology Reason for Consult*: Abnormal stress test, chest pain suspicious for angina Attending Physician: James Tate MD Primary Care Provider: JUAN MANUEL Matute History of Present Illness History of Present Illness Karen Sharp is a 84 year old female past medical history significant for hypertension hyperlipidemia COPD presented with worsening of shortness of breath and chest pain upon mild to moderate exertion. Patient was ruled out overnight. She underwent stress test which was suggestive of subtle ischemia in the region of circumflex however patient story is very convincing according to her for the past few months she has been noticing fatigue and shortness of breath now upon mild to moderate exertion he started hurting in the chest and she has to sit down to get over it. When the chest pain did not go away yesterday she decided to come in here. She still feels chest pressure upon walking and thinks that it hinders her lifestyle. Review of Systems Const: Denies: fever(s), chills, body aches, change in appetite or diaphoresis ENMT: Denies: throat pain, ear or mastoid pain, nasal discharge or nasal congestion Card: Denies: palpitations, syncope, orthopnea or leg pain with exertion Resp: Reports: dyspnea; Denies: productive cough, wheezing or pain on inspiration GI: Denies: abdominal pain, nausea, vomiting, diarrhea or constipation : Denies: flank pain, difficulty voiding, dysuria, urinary frequency or urinary urgency Musc: Denies: back pain, extremity pain, extremity swelling or joint warmth Skin/Breast: Denies: rash or pruritus Neuro: Denies: headache(s), difficulty walking or confusion Meds/Allergies Home Medications and Allergies Home Medications Medication Instructions Recorded Confirmed Last Taken Type albuterol sulfate 90 mcg/actuation 2 puff INHALATION Q6H PRN 09/10/19 09/07/20 Unknown History aerosol inhaler ascorbic acid (vitamin C) 250 mg 250 mg PO DAILY@08 tab 09/10/19 09/07/2007/17 History tablet calcium carbonate 500 mg calcium 500 mg PO DAILY@08 tab 09/10/19 09/07/20 09/06/20 History (1,250 mg) chewable tablet omega-3 fatty acids 500 mg capsule 500 mg PO DAILY@08 cap 09/10/19 09/07/2009/06/21 History blood pressure monitor #1 each 10/31/19 09/07/20 Unknown Rx cholecalciferol (vitamin D3) 25 mcg PO DAILY@09/07/20 09/07/20 09/06/20 History [Vitamin D3] duloxetine 20 mg PO BEDTIME@0000 09/07/20 09/07/20 09/06/20 History lactobacillus combination no.4 3,000 mmu cells PO DAILY@09/07/20 09/07/20 09/07/20 History [Probiotic] lisinopril 10 mg PO DAILY@09/07/20 09/07/20 09/06/20 History multivitamin 1 tab PO DAILY@09/07/20 09/07/20 09/06/20 History Allergies Allergy/AdvReac Type Severity Reaction Status Date / Time adhesive tape Allergy ALGY-Rash Verified 09/07/20 10:40 Current Medications Current Medications Generic Name Dose Route Start Last Admin Trade Name Freq PRN Reason Stop Dose Admin Acetaminophen 650 mg 09/07/20 16:06 09/08/20 11:27 Acetaminophen 325 Mg Tablet PO 650 mg Q6H PRN Administration Mild/Mod Pain Or Temp >/= 101 Albuterol Sulfate 2 puff 09/07/20 16:09 09/08/20 08:25 Albuterol 8 Gm Mdi INHALATION 2 puff Q6H PRN Administration Shortness Of Breath Ascorbic Acid 250 mg 09/08/20 08:00 09/09/20 10:04 Ascorbic Acid 500 Mg Tablet PO 250 mg DAILY@08 PAULINO Administration Aspirin 81 mg 09/08/20 11:00 09/09/20 10:05 Aspirin 81 Mg Ec Tablet PO 81 mg DAILY PAULINO Administration Calcium Carbonate 500 mg 09/08/20 08:00 09/09/20 10:05 Calcium Carbonate 500 Mg Chew Tablet PO 500 mg DAILY@08 PAULINO Administration Duloxetine HCl 20 mg 09/08/20 21:00 09/08/20 21:13 Duloxetine 20 Mg Capsule PO 20 mg BEDTIME PAULINO Administration Enoxaparin Sodium 40 mg 09/07/20 16:15 09/09/20 16:32 Enoxaparin 40 Mg/0.4 Ml Syringe SUBCUT 40 mg Q24H PAULINO Administration Lisinopril 10 mg 09/08/20 08:00 09/09/20 10:06 Lisinopril 10 Mg Tablet PO 10 mg DAILY@08 [facility] Administration Multivitamins Therapeutic 1 tab 09/08/20 08:00 09/09/20 10:05 Multivitamin Therapeutic Tablet PO 1 tab DAILY@08 [facility] Administration Non-Formulary Medication 3,000 mmu cells 09/08/20 08:00 09/09/20 10:06 Lactobacillus Combination No.4 [Probiotic] PO Not Given DAILY@08 [facility] Non-Formulary Medication 500 mg 09/08/20 08:00 09/09/20 10:06 [place]-3 Fatty Acids PO Not Given DAILY@08 [facility] Pantoprazole Sodium 40 mg 09/08/20 09:00 09/09/20 10:[address] 40 Mg Tablet PO 40 mg DAILY [facility] Administration Vitamin D 1,000 unit 09/08/20 08:00 09/09/20 10:05 Cholecalciferol (Vitamin D3) 1,000 Unit Tablet PO 1,000 unit DAILY@08 [facility] Administration PFSH Acute PFSH: Medical History (Updated 09/10/20 @ 14:03 by James Tate MD) Age related osteoporosis COPD (chronic obstructive pulmonary disease) Dyslipidemia Generalized anxiety disorder HTN (hypertension) Hypersomnia with sleep apnea Nocturnal hypoxemia w/ O2 at 2 litters Family History Brother Cancer brain tumor Other Diabetes Hypertension Social History Smoking and tobacco status: never smoked Alcohol intake: never Adopted: No Lives independently: Yes Household members: family Housing: House Marital status: / Number of children: 4 Number of grandchildren: 11 Highest education level completed: Some College, No Degree service: No Current occupational status: employed and retired History of recent travel: No Leatha/Synagogue: Congregational Dietary Habits: Current diet type/program: regular Caffeine: Yes Safety: Seatbelt use: always Vitals/I&O/Wt Last Vital Signs Temp 97.5 F L 09/09/20 19: Pulse 60 09/09/20 19:21 Resp 13 09/09/20 19:21 BP 78/36 09/09/20 19: Pulse Ox 78 L 09/09/20 19:21 01/09/09/20 09/09/20 06:59 14:59 22:59 Intake Total 240 / 960 240 / 240 240 / 480 Balance 240 / 960 240 / 240 240 / 480 Weight last 48 hrs Weight 154 lb Weight 151 lb 11.2 oz Physical Exam Narrative: EXAM NARRATIVE: GENERAL: Patient is alert, awake and oriented x3. NECK: No jugular vein distension. HEENT: No cyanosis. No icterus. No pallor. HEART: Regular S1 and S2. No murmur, rub or gallop. LUNGS: Clear to auscultate bilaterally. ABDOMEN: Soft, nontender and nondistended. Positive bowel sounds. No guarding, rebound or tenderness. CENTRAL NERVOUS SYSTEM: Grossly nonfocal. EXTREMITIES: Lower extremities without edema bilaterally. Data Micro: Micro: IMPRESSIONS #1. Myocardial perfusion imaging revealing a small area of persistent decreased tracer uptake in the apical lateral and apical inferior wall regions with a subtle area of reversibility in the apical lateral region suggestive of ischemia in the distribution of the left circumflex artery distribution. #2. Normal LV ejection fraction of 75%. #3. LV wall motion analysis revealing no gross wall motion normalities. #4. Normal LV volume. No similar previous studies are available for comparison SINUS BRADYCARDIA NONSPECIFIC T-WAVE ABNORMALITY Compared to ECG 09/07/2020 10:47:21 T-wave abnormality now present Sinus rhythm no longer present Myocardial infarct finding no longer present Electronically Signed On 09-07-2020 21:48:05 CRANKSHAFT BALANCER by Anatoliy Brannon M.D. A&P Assessment and plan (1) Chest pain: Patient chest pain pattern is consistent with worsening of angina. Patient has abnormal stress test which is subtle low but since she has a good story with risk factors and it is lifestyle limiting we will proceed with left heart cath/PCI if indicated. I will load her tonight with Plavix. Continue aspirin statin beta-casimiro. Patient has been explained all risk benefit and alternative for the procedure. She would like to proceed with it. Status: Acute Qualifiers: Chest pain type: precordial pain Qualified Code(s): R07.2 - Precordial pain (2) HTN (hypertension): Well-controlled. Continue medicine Status: Chronic Qualifiers: Hypertension type: essential hypertension Qualified Code(s): I10 - Essential (primary) hypertension Consult Attestations Medical Necessity Statement: Require continuation hospitalization for above defined care. Coding Level of Care Code New Pt Acute Renal Nurse for Chg Fwd Patient Type New Medical Decision Making Moderate Complexity Diagnoses Chest pain R07.2 Chest pain type: precordial pain HTN (hypertension) I10 Hypertension type: essential hypertension
[2020-09-09] MEDS: albuterol 8 gm MDI 2 PUFF INHALATION (20:39)
[2020-09-09] MEDS: atorvastatin 40 mg Tablet 20 MG PO (21:29)
[2020-09-09] MEDS: duloxetine 20 mg Capsule PO (21:29)
[2020-09-09] MEDS: clopidogrel 300 mg Tablet PO (22:01)
[2020-09-10] VITALS (36 sets, daily range): BP systolic 103–156; BP diastolic 43–72; PULSE 53–71; RESP 13–22; TEMP 36.4–36.6; O2SAT 94–98
[2020-09-10 05:27] LABS: Basophils % 0.6 %; Eosinophils # 0.2 10^3/uL (0.0-0.8); Eosinophils % 4.6 %; Hematocrit 32.1 % (37.0-47.0); Hemoglobin 10.2 g/dL (11.5-15.3); Lymphocytes # 2.2 10^3/uL (0.8-4.8); Lymphocytes % 43.9 %; Mean Corpuscular HGB Conc 31.8 g/dL (30.0-36.0); Mean Corpuscular Hemoglobin 30.4 pg (28.0-34.0); Mean Corpuscular Volume 95.8 fL (81-99); Mean Platelet Volume 10.6 fL (7.4-10.4); Monocytes # 0.6 10^3/uL (0.2-0.9); Monocytes % 11.7 %; Neutrophils # 1.94 10^3/uL (1.8-7.7); Nucleated Red Blood Cells % 0 %; Platelet Count 185 10^3/cmm (130-400); Red Blood Count 3.35 10^6/uL (4.1-5.3); Red Cell Distribution Width 12.6 % (12.1-15.1)
[2020-09-10 05:49] LABS: Alanine Aminotransferase 11 U/L (0-33); Albumin Level 3.5 g/dL (3.5-5.2); Alkaline Phosphatase 44 IU/L (35-105); Anion Gap 12.8 (5-19); Aspartate Amino Transferase 19 U/L (0-32); Blood Urea Nitrogen 18 mg/dL (8-23); Calcium 8.9 mg/dL (8.5-10.5); Carbon Dioxide 25 mmol/L (22-29); Chloride 104 mmol/L (98-107); Globulin 2.4 g/dL (1.3-4.6); Glucose 105 mg/dL (65-115); Osmolality Calculated 286 mOsm/kg (285-295); Potassium 4.8 mmol/L (3.5-5.1); Sodium 137 mmol/L (136-145); Total Bilirubin 0.2 mg/dL (0.15-1.2); Total Protein 5.9 g/dL (6.6-8.7)
[2020-09-10] MEDS: ascorbic acid 500 mg Tablet 250 MG PO (08:52)
[2020-09-10] MEDS: multivitamin therapeutic Tablet 1 TAB PO (08:52)
[2020-09-10] MEDS: calcium carbonate 500 mg Chew Tablet PO (08:52)
[2020-09-10] MEDS: pantoprazole DR 40 mg Tablet PO (08:52)
[2020-09-10] MEDS: cholecalciferol (vitamin D3) 1,000 unit Tablet 1000 UNIT PO (08:52)
--- NOTE | 2020-09-10 10:49 | PM.PN ---
Subjective Subjective: Interval history: No acute events overnight. Nurse 24 hours patient's stress test came back positive ischemia. Patient was seen by cardiology and is planning for cardiac catheterization today Examination patient uncomfortable in bed. Denies any further chest pain, dizziness, difficulty in breathing and off 24 hours. Patient is anxious regarding the procedure. Discussed in detail regarding need of procedure, safety of procedure. Patient states she is feeling better and would like to go ahead with the procedure. Medications: Reviewed: Yes Vitals/I&O/Wt Last Vital Signs Temp 97.7 F 09/10/20 07:00 Pulse 63 09/10/20 07:10 Resp 18 09/10/20 07:10 BP 106/48 09/10/20 07:00 Pulse Ox 94 09/10/20 07:10 09/09/20 09/10/20 09/10/20 22:59 06:59 14:59 Intake Total 240 / 480 360 / 840 Output Total 0 / 0 Balance 240 / 480 360 / 840 Weight last 48 hrs Weight 69.853 kg Weight 69.853 kg Physical Exam Narrative: EXAM NARRATIVE: General: No acute distress, AO x3, pleasant HEENT: PERRLA, pupils bilaterally equal and reactive Chest: Normal vesicular breath sounds, no added sounds, equal good air entry bilaterally CVS: S1-S2 regular, no murmurs, no tachycardia, no gallops, no rubs Abdomen: Soft, nontender, no organomegaly, bowel sounds present Neuro: No focal deficits, no facial deformity, AO x3, power 5/5 in all limbs Data : 09/10/20 05:05 09/10/20 05:05 A&P Assessment and plan (1) Positive cardiac stress test: Status: Acute (2) Chest pain: Status: Acute Qualifiers: Chest pain type: precordial pain Qualified Code(s): R07.2 - Precordial pain (3) Pre-syncope: Continue telemetry. Orthostatic blood pressures negative. Status: Acute (4) HTN (hypertension): Goal blood pressure less than 140/90 mmHg. Blood pressures at goal. Continue home dose Lisiniopril 10 mg po daily Status: Chronic Qualifiers: Hypertension type: essential hypertension Qualified Code(s): I10 - Essential (primary) hypertension (5) COPD (chronic obstructive pulmonary disease): Status: Acute (6) Dyslipidemia: Status: Acute Additional A&P Information Typical chest pain with positive cardiac stress test: Appreciate cardiology recommendations. Patient to undergo cardiac catheterization and possible PCI today. Echocardiogram results appreciated. V systolic function is normal with EF of 60 to 65%. Grade 1 diastolic dysfunction is seen. No significant valvular heart disease is present. Mild tricuspid regurg. Continue with aspirin, statin, Plavix for now. Patient is chest pain-free. Code Status :Full code DVT PPX: Lovenox 40 mg sc daily Disposition:Home. Attestations Medical Necessity Statement*: Patient requires further hospitalization for management of typical chest pain with positive cardiac stress test. Time Spent in Patient Care: Greater than 35 minutes (>than 50% of time spent in counselling and/or direct pt care on unit). Coding Level of Care Code Acute Profile Shaper Operator for Justin Oconnell Diagnoses Positive cardiac stress test R94.39 Chest pain R07.2 Chest pain type: precordial pain Pre-syncope R55 HTN (hypertension) I10 Hypertension type: essential hypertension COPD (chronic obstructive pulmonary disease) J44.9 Dyslipidemia E78.5
[2020-09-10] MEDS: diphenhydrAMINE 50 mg Capsule PO (11:08)
[2020-09-10] MEDS: sodium chloride 0.9% 1,000 ML 50 ML IV (11:08)
--- NOTE | 2020-09-10 11:15 | PC.NURSE ---
Dr. Tate in to see patient, patient reports anxiety related to scheduled procedure, new orders received for ativan PO, see MAR for further details.
[2020-09-10] MEDS: LORazepam 0.5 mg Tablet 0.25 MG PO (11:25)
--- NOTE | 2020-09-10 12:08 | XACV_ITS ---
Exam Room: [facility] Ht: 157 cm Wt: 70 kg BSA: 1.77 m2 Gender: Female : 1935 Any Known Allergies: Other Exam Priority: Routine Procedure(s): Procedure Description: Diagnostic procedure Procedure Description: PCI procedure Procedure Description: Drug Eluting Coronary Stent Procedure Description: PTCA Procedure Description: Miscellaneous Procedure Description: ACT Procedure Description: Coronary Angiography Diagnostic Cath Status: Urgent Diagnostic Findings * LM has 0% stenosis. * CX has 0% stenosis. * dLAD: Severe 85% stenosis, ITA: 3 flow. * Mid Right Coronary Artery: Severe 90% stenosis, ITA: 3 flow. * Coronary angiography shows right dominance. PCI Status: Urgent PCI Indication: New Onset Angina <= 2 months Interventional Findings * dLAD: 85% stenosis treated with MDT R MERARY 2.5X15 YAZ and MDT NC EUPHORA RX 2.32L43AT BALLOON. 0% residual stenosis, ITA: 3 flow. * Mid Right Coronary Artery: 90% stenosis treated with MDT R MERARY 3.0X12 YAZ. 0% residual stenosis, ITA: 3 flow. * Diagonal is a moderate size and caliber vessel with a senior living with mid LAD stent plaque shift resulted in 90% ostial stenosis of the diagonal 2. LAD wire was then passed into diagonal 2 and treated with balloon using 2.0 x 6 mm. Excellent angiographic result with ITA-3 flow was achieved in both LAD and diagonal branch.. Conclusions 1. For worsening of chest pain shortness of breath and abnormal stress test patient underwent left heart cath she was found to have mid LAD 85% stenosis with ITA-3 flow. Mid RCA was also noted to have 90% stenosis mild circumflex and left main did not have significant lesions.. 2. There is severe coronary artery disease with two vessel disease. 3. dLAD was treated with Drug Eluting Stent and Balloon. 4. Mid Right Coronary Artery was treated with Drug Eluting Stent. Recommendations * 1-Return to inpatient for close monitoring and routine cath care 2-Risk factor modification for secondary prevention 3-Statin and aspirin 81 mg life--long, if tolerated 4-Patient was pre-loaded with 300 mg of Plavix, continue Plavix 75mg p.o. daily for at least one year. We will assess at the end of one year again to continue if further or not 5-Continue optimal medical management 6-Follow up with Dr. Nieves in four weeks and your primary care in 10 days. Interventional RX Recommendation: PCI w/o planned CABG Diagnostic RX Recommendation: PCI w/o planned CABG Pressures Phase:Rest AO : 149 / 84 ( 108 ) @ 7:40:00 AM 119 / 50 ( 77 ) @ 7:41:00 AM 100 / 47 ( 69 ) @ 7:46:00 AM 138 / 55 ( 85 ) @ 7:50:00 AM 70 / 36 ( 49 ) @ 7:58:00 AM 94 / 46 ( 66 ) @ 7:59:00 AM 112 / 37 ( 67 ) @ 8:06:00 AM 51 / 20 ( 29 ) @ 8:09:00 AM 121 / 47 ( 75 ) @ 8:18:00 AM Clinical Evaluation EBL: 5mL-10mL Procedural Details Procedure Consent Obtained. Pre-Procedure Time Out. Identified patient by full name and date of as verbalized by the patient/guarantor. Does the consent match the physician's order: Yes. Accurate & Complete Informed Consent: Yes. Inpatient/Outpatient History & Physical on Chart: Yes. If H&P is completed, is and addenduem needed: No; If yes, is the addendum complete: N/A. Visualize and Verify Site with Patient/Guarantor: N/A. Relevant Radiology Images available: N/A. Pre-op teaching completed and patient verbalized understanding. The risks, benefits, and alternatives of sedation and/or procedure were discussed by physician. The patient agrees to continue. Procedure started. [facility] Clinical Fraility Score: 3: Managing Well. 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 Chest Pain Symptom Assessment: Typical Angina Symptoms. Cardiovascular Instability: No. Correct patient, site and procedure confirmed by cath team. PERRLA. 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 Lungs clear x 5 lobes. IV Site on Arrival: 18 gauge in the left anticubital. IV Fluids: 0.9% NaCl at KVO. 0 mL infused prior to labor relations representative. Pre Procedural Pulses: bilateral dorsalis pedis was Doppled. Pre Procedural Pulses: bilateral posterior tibial was Doppled. Pre Procedural Pulses: bilateral radial was 2+. Oxygen started at 2liters/min via nasal canula. bilateral groins was prepped with chloroprep then draped in the usual sterile fashion. right radial was prepped with chloroprep then draped in the usual sterile fashion. Baseline sample Acquired. HR: 60 BPM. Physician arrived. Equipment: 6F - Radial. Cardiac Cath Pack. ACIST Manifold Kit Model BT 2000. Heparinized Saline (2 units/mL), 1000 mL bag. Physician scrubbed in. Immediate Pre-Procedure Time Out. Correct Patient: Yes; Correct Procedure: Yes; Correct Site: Yes; Correct Patient Position: Yes; Correct Supplies: Yes; Dried Flammable Prep: Yes; Blood Products Available: N/A;. Lidocaine 1% infiltrated to the right radial. Arterial access obtained. A 5 latvian TIG catheter in over wire. Multiple views taken of left coronary artery. Catheter redirected to the RCA. Multiple views taken of right coronary artery. Catheter removed over the exchange wire. 6 latvian JR 4 SH guide catheter was inserted over the wire. Inflation Number : 1 Pro Alarcon MERARY 3.0X12 YAZ -Lot Number# [id number] exp date 06/02/2022 was prepped and advanced across the Mid RCA. The stent was deployed at 20 SERVANDO for 0:23 seconds. Stent balloon out over wire. Results checked. Wire out. Guide catheter out. Inventory is CRD 6FR XB 3 GUIDE. ACT drawn. Results 184 seconds. Therapeutic limits - pre-heparin administration 90-150 seconds and monitoring heparin during a vascular procedure >250 seconds. 6 latvian XB 3 guide catheter was inserted over the wire. [place] guidewire was advanced through the guide catheter to lesion in the mid LAD. Wire out. Guide catheter out. Inventory is CRD 6FR JL 3.5 SH GUIDE. 6 latvian JL 3.5 SH guide catheter was inserted over the wire. IV bolus stopped. IV fluids running now at 150 ml/hr. [place] guidewire was advanced through the guide catheter to lesion in the mid LAD. Inflation Number : 1 A MDT R MERARY 2.5X15 YAZ -Lot Number# [id number] exp date 09/28/2021 was prepped and advanced across the Mid LAD. The stent was deployed at 14 SERVANDO for 0:22 seconds. Inflation number: 2 The stent balloon was then re-inflated across the Mid LAD to 14 SERVANDO for 0:10 seconds. Stent balloon out over wire. Results checked. [place] wire out to reshape then reinserted to Mid LAD. Inflation number : 3 A MDT NC EUPHORA RX [id number] BALLOON was prepped and advanced across the Mid LAD , then inflated to 14 SERVANDO for 0:17 seconds. Inflation number: 4 The MDT NC EUPHORA RX 2.28I04AH BALLOON was reinflated across the Mid LAD, to 14 SERVANDO for 0:10 seconds. Results checked. Balloon out. [place] repositioned to diaganol. Inflation number : 1 A AB MINI TREK 2.00X6 RX BALLOON was prepped and advanced across the 2nd Diag , then inflated to 6 SERVANDO for 0:15 seconds. Balloon out. Wire out. Results checked. Guide catheter out. Physician scrubbed out. A TR Band was successful obtaining hemostatsis at the Right Radial artery insertion site. TR band placed. Hemostasis obtained. Post Procedure: Pulses reassessed and unchanged. PERRLA. 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 No VTE prophylaxis required. Medication's Wasted: Lidocaine 1% = 14 mL. Medication's Wasted: Heparin = 1000 units. Medication's Wasted: Nitro = 49.75 mg. Total IV fluids: 500 mL. Vital chart was stopped. Contrast type used: Omnipaque 300 mgI/mL, 500 mL bottle. Post-op diagnosis: abnormal stress test. Complications: none. PCI Indication: CAD. Estimated blood loss: 5mL-10mL. Procedure completed. Patient transferred by wheelchair to 1st floor. Access Site Site: Right Radial artery Sheath Size: 6 Fr Hemostasis Method: TR Band Hemostasis Success: Successful Procedure Medications Start: 1:19 PM Stop: 1:19 PM Medication: Versed Amount: 1 mg Route: I.V. Start: 1:19 PM Stop: 1:19 PM Medication: Fentanyl Amount: 25 mcg Route: I.V. Start: 1:35 PM Stop: 1:35 PM Medication: Nitrogylcerin Amount: 50 mcg Route: I.A. Start: 1:38 PM Stop: 1:38 PM Medication: Versed Amount: 1 mg Route: I.V. Start: 1:41 PM Stop: 1:41 PM Medication: Heparin Amount: 5000 units Route: I.V. Start: 1:48 PM Stop: 1:48 PM Medication: Heparin Amount: 2000 units Route: I.V. Start: 1:55 PM Stop: 1:55 PM Medication: Fentanyl Amount: 25 mcg Route: I.V. Start: 1:56 PM Stop: 1:56 PM Medication: Nitrogylcerin Amount: 200 mcg Route: I.C. Start: 1:58 PM Stop: 1:58 PM Medication: 0.9% Saline Amount: 250 ml Route: I.V. bolus Start: 2:05 PM Stop: 2:05 PM Medication: Heparin Amount: 3000 units Route: I.V. Start: 2:08 PM Stop: 2:08 PM Medication: Versed Amount: 1 mg Route: I.V. Start: 2:08 PM Stop: 2:08 PM Medication: 0.9% Saline Amount: 250 ml Route: I.V. bolus Start: 2:28 PM Stop: 2:28 PM Medication: Fentanyl Amount: 25 mcg Route: I.V. I, the attending physician, have reviewed and verified all procedure medications. Yes, all medications given per verbal order History/Risk Factors Hypertension: Yes Dyslipidemia: Yes Peripheral Arterial Disease (PAD): No Myocardial Infarction (IL): No Obesity: No Renal Disease: No Prior Interventions PCI: No CABG: No Valve Surgery: No Report Signatures Finalized by Cari Nieves MD on 09/23/2020 07:29 PM
--- NOTE | 2020-09-10 12:57 | PC.NURSE ---
Patient has no further anxiety noted, resting with eyes closed, equal chest rise and fall.
--- NOTE | 2020-09-10 13:11 | PC.NURSE ---
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
--- NOTE | 2020-09-10 13:24 | W.PM.OPSUD ---
Surgery/Procedure H&P Update DATE OF PROCEDURE: September 10, 2020 DATE H&P PERFORMED: 09/09/20 PLANNED PROCEDURE: Operation Date: 09/10/20 12:30 Proposed Procedures p Cardiac Catheterization(Not Applicable) - Cari Nieves MD
--- NOTE | 2020-09-10 13:36 | PC.NURSE ---
report given to CSU nurse, patient belongings taken to CSU, including necklace, watch, rings, glasses, cane, clothes, bible. patient wearing dentures.
--- NOTE | 2020-09-10 14:10 | PC.NURSE ---
patients stanford Sharp called and updated phone number with this nurse [phone]
--- NOTE | 2020-09-10 15:00 | PC.NURSE ---
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 2 nurse verification of insertion site. TR band intact, bruising to right forearm, no hematoma noted. Patient educated on activity restriction, verbalized understanding. Oriented to room and call light. No further needs identified at this time.
--- NOTE | 2020-09-10 15:12 | PM.PN ---
Subjective Subjective: Interval history: Status post PCI to mid RCA and mid LAD with 2 drug-eluting stents for significant 80 to 90% stenosis. Medications: Reviewed: Yes Vitals/I&O/Wt Last Vital Signs Temp 97.5 F L 09/10/20 11:44 Pulse 60 09/10/20 11:44 Resp 16 09/10/20 11:44 BP 128/57 09/10/20 11:44 Pulse Ox 96 09/10/20 11:44 09/10/20 09/10/20 09/10/20 06:59 14:59 22:59 Intake Total 360 / 840 Balance 360 / 840 Weight last 48 hrs Weight 154 lb Weight 154 lb Physical Exam Narrative: EXAM NARRATIVE: GENERAL: Patient is alert, awake and oriented x3. NECK: No jugular vein distension. HEENT: No cyanosis. No icterus. No pallor. HEART: Regular S1 and S2. No murmur, rub or gallop. LUNGS: Clear to auscultate bilaterally. ABDOMEN: Soft, nontender and nondistended. Positive bowel sounds. No guarding, rebound or tenderness. CENTRAL NERVOUS SYSTEM: Grossly nonfocal. EXTREMITIES: Lower extremities without edema bilaterally. Data : 09/10/20 05:05 09/10/20 05:05 A&P Assessment and plan (1) Chest pain: Post PCI to mid RCA and mid LAD lesions with 2 drug-eluting stents. Continue aspirin statin Plavix Status: Acute Qualifiers: Chest pain type: precordial pain Qualified Code(s): R07.2 - Precordial pain (2) HTN (hypertension): Well-controlled. Continue medicine Status: Chronic Qualifiers: Hypertension type: essential hypertension Qualified Code(s): I10 - Essential (primary) hypertension Attestations Medical Necessity Statement*: Patient requires continuation hospitalization post PCI most likely discharge tomorrow Coding Level of Care Code Established Pt Acute Production Maintenance Technician for Chg Fwd Patient Type Established History Expanded Problem Focused Exam Expanded Problem Focused Medical Decision Making Moderate Complexity Diagnoses Chest pain R07.2 Chest pain type: precordial pain HTN (hypertension) I10 Hypertension type: essential hypertension
[2020-09-10] MEDS: clopidogrel 75 mg Tablet PO (15:28)
--- NOTE | 2020-09-10 16:00 | PC.NURSE ---
When rounding on patient, oozing noted from TR band, 5 ml air added to band. hemostasis achieved. Nurse to continue to monitor.
[2020-09-10] MEDS: sodium chloride 0.9% 1,000 ML 100 ML IV (16:09)
--- NOTE | 2020-09-10 19:47 | PC.NURSE ---
Received bedside report from VIPUL Fuller. Patient resting in bed with eyes closed, opens spontaneously. Patient is S/P C with PCI x2. Patient has TR band in place to right wrist. Received in report patient received 10,000 units of Heparin during procedure and has had some oozing at access site. Observed dry blood under band along with some bruising to right wrist. No active sign of bleeding or hematoma formation observed. Removed 2ML of air from band. No bleeding observed. Discussed band removal and nighttime medications. Patient verbalized complete understanding. No distress observed.
[2020-09-10] MEDS: atorvastatin 40 mg Tablet 20 MG PO (20:26)
[2020-09-10] MEDS: duloxetine 20 mg Capsule PO (20:26)
--- NOTE | 2020-09-10 20:37 | PC.NURSE ---
Removed TR band at 2012. Cleaned site. Went to place dressing to site and noted a large hematoma develop around thumb and back of hand. Replaced TR band with 10ml of air instilled. Spoke with Dr Nieves and informed him of new hematoma. Received instruction to place coban snuggly around hand which was done. Placed 2nd TR band above 1st. Patient denies pain but can feel her hand pulsating . Also received instruction from Dr Nieves to wait 3-4 hours before attempting band removal. Instructed patient on site care and frequent monitoring of site. Patient verbalized understanding stating, Just do what you need to do.
--- NOTE | 2020-09-10 20:45 | PC.NURSE ---
Hematoma to hand appears to be resolving. Swelling has gone down. Discussed with patient bruising to hand that will be there for several days. Patient verbalized understanding stating, I bruise all the time. I bruise real easy. Hematoma above TR bands also improving. Patient denies pain to site. Patient hand is cool with palpable pulse.
--- NOTE | 2020-09-10 21:06 | PC.NURSE ---
Dr Nieves in to see patient. Coban removed from hand. Removed 2ml of air from each TR band while Dr Nieves observing. Patient expressed some relief of pressure. Dr Nieves okay with progress. Will monitor closely.
--- NOTE | 2020-09-10 21:27 | PC.NURSE ---
Patient right hand is warm to touch with palpable pulse. No indication of increased growth of hematoma. Bruising is observed to hand.
--- NOTE | 2020-09-10 22:19 | PC.NURSE ---
Patient hand continues to resolving. Bruising observed. Hand is warm with palpable pulse and capillary refill < 3sec.
--- NOTE | 2020-09-10 23:02 | PC.NURSE ---
Extra TR band removed from right forearm. Bruising observed. No hematoma noted. Area is soft. Patient expressed relief of some pressure.
--- NOTE | 2020-09-10 23:30 | PC.NURSE ---
Final TR band removed at this time. Extensive bruising to right wrist observed. No hematoma. Skin at area remains soft. Covered incision site with 2x2 and bio-occlusive. Wrapped hand to mid forearm with coban for support. Patient reports pain directly over incision site. Pulse palpable, hand warming, capillary refill <3 sec. Instructed patient on site care and restrictions. Patient verbalized understanding.
--- NOTE | 2020-09-10 23:45 | PC.NURSE ---
Patient c/o throbbing to right wrist. Patient has bounding pulse at site. No sign of hematoma redevelopment at this time.
[2020-09-11] VITALS (16 sets, daily range): BP systolic 105–151; BP diastolic 42–84; PULSE 58–82; RESP 13–21; TEMP 36.2–36.6; O2SAT 93–98
--- NOTE | 2020-09-11 00:53 | PC.NURSE ---
Assisted patient up to bathroom x1 assist. Patient ambulated well. No additional swelling to right wrist. Right wrist has bounding pulse to site. Warm to touch, palpable pulse and capillary refill <3sec. Patient c/o pain only to incision site and only with palpation. Area of bruising from mid right forearm to include thumb and back of hand.
--- NOTE | 2020-09-11 01:14 | PC.NURSE ---
Patient reports right extremity feeling some better. Reports NO feeling of tightness. No observed swelling at this time. Bounding pulse remains directly over incision site. Palpable pulse.
--- NOTE | 2020-09-11 02:51 | PC.NURSE ---
Patient reports right extremity is feeling real good. Swelling resolving. Hand warm, has palpable pulse.
--- NOTE | 2020-09-11 06:09 | PC.NURSE ---
Dressing to right wrist remains c,d,i. No further swelling developed with much improvement to previous hematoma. Bruising observed. Patient reports less pain and pressure to extremity. Pulse remains palpable with extremity being warm to touch.
[2020-09-11] MEDS: aspirin 81 mg EC Tablet PO (08:40)
[2020-09-11] MEDS: clopidogrel 75 mg Tablet PO (08:41)
[2020-09-11] MEDS: calcium carbonate 500 mg Chew Tablet PO (08:41)
[2020-09-11] MEDS: cholecalciferol (vitamin D3) 1,000 unit Tablet 1000 UNIT PO (08:41)
[2020-09-11] MEDS: ascorbic acid 500 mg Tablet 250 MG PO (08:41)
[2020-09-11] MEDS: pantoprazole DR 40 mg Tablet PO (08:41)
[2020-09-11] MEDS: multivitamin therapeutic Tablet 1 TAB PO (08:42)
[2020-09-11] MEDS: bisacodyl 5 mg Tablet 10 MG PO (08:42)
[2020-09-11] MEDS: lisinopril 10 mg Tablet PO (08:42)
--- NOTE | 2020-09-11 10:14 | PM.DCS ---
Discharge Providers Date of Admission: 09/09/20 18:42 Date of Discharge: September 11, 2020 Attending Provider at Admission: Abhijit Perez MD Attending Provider at Discharge: James Tate MD Consults: Cardiology: Dr. Nieves Primary Care Provider: JUAN MANUEL Matute Diagnoses at Discharge Discharge Diagnosis (1) Chest pain: Status: Acute Qualifiers: Chest pain type: precordial pain Qualified Code(s): R07.2 - Precordial pain (2) HTN (hypertension): Status: Chronic Qualifiers: Hypertension type: essential hypertension Qualified Code(s): I10 - Essential (primary) hypertension Reason for Visit Reason for Visit: ABNORMAL EKG Hospital Course Hospital Course Karen Sharp is a 84 year old female with PMH of HTN, COPD, LAURENCE, DLD, came in with c/o intermittent chest pain and shortness of breath with exertion. This is been going on for weeks.Discussing it with her she relates that the frequency and intensity of been increasing she will get several episodes per day. Her last episode was yesterday. When she does get the episodes it radiates into her left arm. She does get short of breath with it she does not get diaphoretic or nauseous with it. She was admitted to the hospital for further work-up for typical chest pain for CAD. She underwent cardiac stress test which was suggestive of subtle ischemia in region of left circumflex. Because of finding of cardiac stress test and an typical history of chest pain cardiology was consulted and patient underwent cardiac catheterization on September 10 during which he underwent PCI to mid LAD and mid RCA with 1 drug-eluting stent each. She tolerated the procedure well. Patient also underwent echocardiogram which showed EF of 60 to 65% with grade 1 diastolic dysfunction without regional wall motion abnormality. Patient is discharged in medically stable condition with advised to follow-up with cardiology within next 2 weeks. Physical Exam Narrative: EXAM NARRATIVE: General: No acute distress, AO x3, pleasant HEENT: PERRLA, pupils bilaterally equal and reactive Chest: Normal vesicular breath sounds, no added sounds, equal good air entry bilaterally CVS: S1-S2 regular, no murmurs, no tachycardia, no gallops, no rubs Abdomen: Soft, nontender, no organomegaly, bowel sounds present Neuro: No focal deficits, no facial deformity, AO x3, power 5/5 in all limbs Discharge Data Data Completed and Pending: Completed Studies During Hospitalization Category Date Time Status Sestamibi Stress Test Request Routi ne Exams 09/08/20 13:13 Completed XR chest 1V [place] ble [id number] Stat Exams 09/07/20 10:52 Completed NM neil perf SPECT r/s* [id number] Routin e Nuc Med 09/09/20 Completed CV carotid duplex BI* [id number] Routine Ultrasound 09/08/20 10:43 Completed CV echo complete* [id number] Routine Ultrasound 09/08/20 06:00 Completed Pending at discharge Category Date Time Status 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 Routin e Exams 09/10/20 12:08 Taken Vitals: Last Vital Signs Temp 97.2 F L 09/11/20 07:15 Pulse 68 09/11/20 08:00 Resp 21 H 09/11/20 07:15 BP 123/42 09/11/20 07:15 Pulse Ox 96 09/11/20 07:15 Discharge Plan Discharge Patient Disposition: Home Condition: Stable Prescriptions: New atorvastatin 40 mg Tablet 20 mg PO BEDTIME 30 Days Qty: 30 RF: 0 clopidogrel 75 mg Tablet 75 mg PO DAILY 30 Days Qty: 30 RF: 0 aspirin 81 mg Tablet,Delayed Release (Dr/Ec) 81 mg PO DAILY 30 Days Qty: 30 RF: 0 pantoprazole 40 mg Tablet,Delayed Release (Dr/Ec) 40 mg PO DAILY 30 Days Qty: 30 RF: 0 Continued (DME) blood pressure monitor [Blood Pressure Kit] Kit See Rx Instructions .ROUTE .MEDSUPPLY Qty: 1 RF: 0 calcium carbonate [Calcium 500] 500 mg calcium (1,250 mg) tablet,chewable 500 mg PO DAILY@08 RF: 0 albuterol sulfate [Ventolin HFA] 90 mcg/actuation HFA aerosol inhaler 2 puff INHALATION Q6H PRN (Reason: Shortness Of Breath) RF: 0 ascorbic acid (vitamin C) 250 mg tablet 250 mg PO DAILY@08 RF: 0 omega-3 fatty acids 500 mg capsule 500 mg PO DAILY@08 RF: 0 multivitamin Tablet 1 tab PO DAILY@08 RF: 0 Vitamin D3 25 mcg (1,000 unit) Tablet,Chewable 25 mcg PO DAILY@08 RF: 0 Probiotic 3 billion cell Capsule 3,000 mmu cells PO DAILY@08 RF: 0 duloxetine 40 mg capsule,delayed release(DR/EC) 20 mg PO BEDTIME@0000 RF: 0 Changed lisinopril 10 mg tablet 5 mg PO DAILY@08 Qty: 0 RF: 0 Discharge Orders: Discharge Order (Routine); Ordered 09/11/20 Ordered By: James Tate Referrals: Jaxon Martinez FNP-C [Primary Care Provider] - 2 weeks (SENT A FOLLOW UP REQUEST FOR JAXON MARTINEZ OFFICE,THEY SHOULD BE GIVING YOU A CALL, IF YOU HAVE NOT HEARD FROM THEM BY Sunday PLEASE GIVE THEM A CALL AT [phone]) Cari Nieves MD [Physician] - 4-7 days (SENT A FOLLOW UP REQUEST FOR DR. NIEVES OFFICE,THEY SHOULD BE GIVING YOU A CALL, IF YOU HAVE NOT HEARD FROM THEM BY Sunday PLEASE GIVE THEM A CALL AT [phone]) Discharge Diet: Cardiac Discharge Activity: Resume usual activity Patient Instructions: Left Heart Catheterization (DC), Chest Pain Stoplight Discharge Attestations Time Spent in Discharge Care*: greater than 30 min Specific Discharge Activities: educating patient, discussing with pcp/other providers, discussing with classification case manager/social workers/dc planners, documenting/other paperwork and evaluating patient/reviewing data Status at Discharge: Cognitive status at discharge: cognitively intact, Behavioral status at discharge: cooperative, Functional status at discharge: independent ambulation Overall status at discharge: patient is back to baseline Quality Metrics Clinical Quality Measures During this hospital stay, did patient experience: None Coding Level of Care Code Acute Automation/Controls Manager for Justin Fwd Diagnoses Chest pain R07.2 Chest pain type: precordial pain HTN (hypertension) I10 Hypertension type: essential hypertension
--- NOTE | 2020-09-11 13:35 | PM.PN ---
Subjective Subjective: Interval history: No overnight event except moderate bruising on the right hand with small hematoma which has been resolved. Medications: Reviewed: Yes Vitals/I&O/Wt Last Vital Signs Temp 97.2 F L 09/11/20 12:00 Pulse 68 09/11/20 12:00 Resp 13 09/11/20 12:00 BP 106/43 09/11/20 12:00 Pulse Ox 96 09/11/20 12:00 09/10/20 09/11/20 09/11/20 22:59 06:59 14:59 Intake Total 240 / 240 240 / 480 120 / 120 Balance 240 / 240 240 / 480 120 / 120 Weight last 48 hrs Weight 157 lb 14.4 oz Weight 154 lb Physical Exam Narrative: EXAM NARRATIVE: GENERAL: Patient is alert, awake and oriented x3. NECK: No jugular vein distension. HEENT: No cyanosis. No icterus. No pallor. HEART: Regular S1 and S2. No murmur, rub or gallop. LUNGS: Clear to auscultate bilaterally. ABDOMEN: Soft, nontender and nondistended. Positive bowel sounds. No guarding, rebound or tenderness. CENTRAL NERVOUS SYSTEM: Grossly nonfocal. EXTREMITIES: Lower extremities without edema bilaterally. Right hand and wrist bruising, good radial pulse in the right hand Data : 09/10/20 05:05 09/10/20 05:05 A&P Assessment and plan (1) Chest pain: Patient chest pain pattern is consistent with worsening of angina. Patient has abnormal stress test which is subtle low but since she has a good story with risk factors and it is lifestyle limiting we will proceed with left heart cath/PCI if indicated. I will load her tonight with Plavix. Continue aspirin statin beta-casimiro. Patient has been explained all risk benefit and alternative for the procedure. She would like to proceed with it. Stable from a cardiovascular perspective status post PCI continue regimen as above. Follow-up with cardiology 7 to 10 days with Roxana Connelly. Follow-up with Dr. Wong in 3 months. Continue Plavix and aspirin for at least 1 year after that we will further decide to continue or not Status: Acute Qualifiers: Chest pain type: precordial pain Qualified Code(s): R07.2 - Precordial pain (2) HTN (hypertension): Stable Status: Chronic Qualifiers: Hypertension type: essential hypertension Qualified Code(s): I10 - Essential (primary) hypertension Attestations Medical Necessity Statement*: Patient can be discharged home Coding Level of Care Code Established Pt Acute Certified Medical Dosimetrist for Chg Fwd Patient Type Established History Expanded Problem Focused Exam Expanded Problem Focused Medical Decision Making Moderate Complexity Diagnoses Chest pain R07.2 Chest pain type: precordial pain HTN (hypertension) I10 Hypertension type: essential hypertension
== END 2020-09-11 15:10 | disposition home or self-care (01) | DRG 247 ==
LOC: ER 13:15 → MEDSURG 09-08 12:48 → CSU 09-11 10:14 → MEDSURG 09-13 12:26
PROVIDERS: Internal Medicine Cardiovascular Disease; Admitting Provider Internal Medicine; Emergency Provider Family Medicine; PCP Nurse Practitioner; Visit Provider Student in an Organized Health Care Education/Training Program
PROC: 027135Z Dilation of Coronary Artery, Two Arteries with Two Drug-eluting Intraluminal Devices, Percutaneous Approach (ICD-10-PCS; principal; 2020-09-10 12:30)
PROC: 027135Z Dilation of Coronary Artery, Two Arteries with Two Drug-eluting Intraluminal Devices, Percutaneous Approach (ICD-10-PCS; 2020-09-10 12:30)
DX: I25.110 Atherosclerotic heart disease of native coronary artery with unstable angina pectoris (principal); I10 Essential (primary) hypertension; J44.9 Chronic obstructive pulmonary disease, unspecified; F41.1 Generalized anxiety disorder; E78.5 Hyperlipidemia, unspecified; M81.0 Age-related osteoporosis without current pathological fracture
CPT/HCPCS: 12345; 36415; 71045; 78452; 80053; 80061; 83735; 84145; 84484; 85025; 85347; 85610; 85730; 93005; 93017; 93306; 93454; 93880; 94640; 96372; 97161; 97530; 99283; A9500; C1725; C1769; C1874; C1887; C1894; C9600; C9601; G0378; J1644; J1650; J2250; J2785; J3010; J3490; J3535; J7030; Q0163; Q9967

== ENCOUNTER → 2020-09-17 11:27 | Outpatient (BNVA) | payer MEDICARE, SELFPAY | PROVIDERS: PCP Nurse Practitioner; Visit Provider Nurse Practitioner Family | DX: I25.10 Atherosclerotic heart disease of native coronary artery without angina pectoris (principal) | CPT/HCPCS: 80048 ==

== ENCOUNTER → 2021-03-21 14:12 | Outpatient (BNVA) | payer MEDICARE, SELFPAY | PROVIDERS: PCP Nurse Practitioner; Visit Provider Nurse Practitioner Family | DX: I10 Essential (primary) hypertension (principal); E55.9 Vitamin D deficiency, unspecified; E78.5 Hyperlipidemia, unspecified; F41.1 Generalized anxiety disorder; M81.0 Age-related osteoporosis without current pathological fracture; R51.9 Headache, unspecified | CPT/HCPCS: 80053; 80061; 82306; 84443; 85025 ==

== ENCOUNTER → 2021-03-25 14:39 | Outpatient (BNVA) | payer MEDICARE, SELFPAY | PROVIDERS: PCP Nurse Practitioner; Visit Provider Nurse Practitioner Family | DX: N39.0 Urinary tract infection, site not specified (principal); R31.0 Gross hematuria | CPT/HCPCS: 81000 ==

== ENCOUNTER → 2021-04-01 15:06 | Outpatient (BNVA) | payer MEDICARE, SELFPAY | PROVIDERS: PCP Nurse Practitioner; Visit Provider Nurse Practitioner Family | DX: R31.9 Hematuria, unspecified (principal); N39.0 Urinary tract infection, site not specified | CPT/HCPCS: 81000 ==

== ENCOUNTER → 2021-07-13 12:03 | Outpatient (BNVA) | payer MEDICARE, SELFPAY | PROVIDERS: PCP Nurse Practitioner; Visit Provider Nurse Practitioner | DX: I10 Essential (primary) hypertension (principal); E55.9 Vitamin D deficiency, unspecified; R41.3 Other amnesia | CPT/HCPCS: 80053; 81003; 82306; 82607; 84443; 85025 ==

== ENCOUNTER 2021-07-20 13:33 | Emergency (ER) | payer MEDICARE, SELFPAY ==
[2021-07-20 13:47] VITALS: BP 91/56; PULSE 72; RESP 16; TEMP 36.4; O2SAT 97
--- NOTE | 2021-07-20 14:40 | ECG_ITS ---
[facility] Test Date: 2021-07-20 Pat Name: Karen Sharp Department: Room: Gender: Female High Scaler: : 1935 Requested By: Devin Hutchison Order Number: [id number] Oralia MD: Cirilo Beltran M.D. Measurements Intervals [place] Rate: 66 P: 46 [place]: 138 QRS: 55 QRSD: 82 T: 84 QT: 401 QTc: 421 Interpretive Statements SINUS RHYTHM NONSPECIFIC T-WAVE ABNORMALITY Compared to ECG 09/07/2020 17:51:21 T-wave abnormality now present Sinus bradycardia no longer present Electronically Signed On 07-20-2021 17:34:55 TERRITORY SUPERVISOR by Cirilo Beltran M.D. [id number]
[2021-07-20 15:09] LABS: Basophils % 0.7 %; Eosinophils # 0.2 10^3/uL (0.0-0.8); Eosinophils % 2.8 %; Hematocrit 35.4 % (37.0-47.0); Hemoglobin 11.5 g/dL (11.5-15.3); Lymphocytes # 2.3 10^3/uL (0.8-4.8); Lymphocytes % 39.7 %; Mean Corpuscular HGB Conc 32.5 g/dL (30.0-36.0); Mean Corpuscular Hemoglobin 30.6 pg (28.0-34.0); Mean Corpuscular Volume 94.1 fl (81-99); Mean Platelet Volume 10.9 fL (7.4-10.4); Monocytes # 0.6 10^3/uL (0.2-0.9); Monocytes % 10.3 %; Neutrophils # 2.65 10^3/uL (1.8-7.7); Neutrophils % 46.3 %; Nucleated Red Blood Cells % 0 %; Platelet Count 195 10^3/cmm (130-400); Red Blood Count 3.76 10^6/uL (4.1-5.3); Red Cell Distribution Width 13.2 % (12.1-15.1); White Blood Count 5.7 10^3/uL (4.0-10.0)
[2021-07-20 15:12] VITALS: BP 111/45; PULSE 73; RESP 17; TEMP 36.5; O2SAT 98
--- NOTE | 2021-07-20 15:16 | CT_ITS ---
WS: [id number] CT HEAD NONCONTRAST HISTORY: ams TECHNIQUE: Contiguous axial imaging performed through the brain in 2.5 mm imaging. Bone and soft tiss ue windows. Sagittal and coronal reformats reviewed. All CT scans at [facility] use at least one of these dose optimization techniques: automated exposure control; mA and/or kV adjustment per pa tient size (includes targeted exams where dose is matched to clinical indication); or iterative recon struction. DLP: 868.33 mGy.cm COMPARISON: None available. No acute intracranial hemorrhage, midline shift or mass effect. Very mild bilateral symmetric atrophy and chronic microvascular ischemic type changes. No prior infar ct. Ventricles: Normal size with no hydrocephalus. No inferior displacement of cerebellar tonsils. Paranasal sinuses: As visualized are clear. Mastoid air cells: Well pneumatized. Calvarium and scalp: Skull is intact with no soft tissue edema or swelling. CT/CT head wo con* [id number] IMPRESSION: 1. No acute intracranial hemorrhage or edema. 2. Mild atrophy and mild chronic microvascular ischemic disease.
[2021-07-20 15:31] LABS: Lactic Sepsis W/Reflex 1.2 mmol/L (0.5-2.2)
[2021-07-20 15:50] LABS: Troponin(5th) Baseline 30 ng/L (0-10)
[2021-07-20 15:57] LABS: Alanine Aminotransferase 15 U/L (0-33); Albumin Level 3.8 g/dL (3.5-5.2); Alkaline Phosphatase 46 IU/L (35-105); Blood Urea Nitrogen 18 mg/dL (8-23); Calcium 8.6 mg/dL (8.5-10.5); Carbon Dioxide 21 mmol/L (22-29); Chloride 108 mmol/L (98-107); Globulin 1.7 g/dL (1.3-4.6); Glucose 86 mg/dL (65-115); Lipase 29 U/L (13-60); Osmolality Calculated 293 mOsm/kg (285-295); Sodium 141 mmol/L (136-145); Thyroid Stimulating Hormone 1.83 uIU/mL (0.27-4.20); Total Bilirubin 0.2 mg/dL (0.15-1.2); Total Protein 5.5 g/dL (6.6-8.7)
[2021-07-20 16:04] LABS: Aspartate Amino Transferase 26 U/L (0-32)
[2021-07-20 16:05] LABS: Anion Gap 16.2 (5-19); Potassium 4.2 mmol/L (3.5-5.1)
--- NOTE | 2021-07-20 16:57 | ED_ITS ---
HPI - General Adult General: Chief complaint: Urogenital-Female Stated complaint: Fall, memory loss Time Seen by Provider: 07/20/21 14:53 History of Present Illness: HPI narrative: Patient is an 85-year-old female with a history of COPD, CAD, hyperlipidemia, anxiety who presents emergency room with worsening confusion. Last week, patient was diagnosed with UTI. Patient's provider Neelima Pete has been attempting to reach patient however was unsuccessful. Patient was then told to go to the emergency room for management of the UTI. Patient has no focal complaints at this time. AAO x2 moderately confused. Onset: 1 week Duration:ongoing Location:home Severity:moderate Review of Systems Narrative: Constitutional: No fever, no chills. HEENT: No vision changes CV: No chest pain, no palpitations PULM: no cough, no dyspnea. GI: No abdominal pain, no N/V/D. : No dysuria MSKEL: No muscle pain SKIN: No new rashes, no lesions. NEURO: No headache, no focal weakness. +confusion and altered mental status HEME: No visible bruises PSYCH: Normal mood PFSH ED PFSH: Medical History Age related osteoporosis Angina pectoris COPD (chronic obstructive pulmonary disease) Coronary artery disease Dyslipidemia Generalized anxiety disorder HTN (hypertension) Hypersomnia with sleep apnea Nocturnal hypoxemia w/ O2 at 2 litters Surgical History History of hysterectomy for cancer 2004 uterus Family History Brother Cancer brain tumor Other Diabetes Hypertension Social History Second hand smoke exposure: No Smoking risk assessment/counseling performed?: No Alcohol intake: never Desire information about alcohol rehabilitation?: No Counseling given: No Desire information about substance/drug rehabilitation?: No Counseling given: No Adopted: No Lives independently: Yes Household members: family Housing: House Marital status: / Number of children: 4 Number of grandchildren: 11 Highest education level completed: Some College, No Degree service: No Current occupational status: retired History of recent travel: No Current gender identity: Female Leatha/Bahai: Jainism Physical Exam Narrative: EXAM NARRATIVE: Head: Atraumatic Eyes: PERRL, conjunctiva without injection ENT: Mucous membrane moist NECK: Supple, ROM intact LUNGS: LCTAB, no crackles/rhonchi CV: RRR ABDOMEN: Soft, no focal TTP. NO guarding rebound, guarding, rigidity. No CVA tenderness to percussion. Neg Spencer/Neg McBurney's point tenderness, no suprabupic tenderness to palpation. EXTREMITY: Normal ROM SKIN: No rash or erythema NEURO: Awake and alert, no focal motor deficits, GCS 14 - mildy confused but following commands PSYCH: Normal mood and affect Course Vital Signs: Vital signs: Vital Signs Temperature 97.7 F 07/20/21 15:12 Pulse Rate 70 07/20/21 17:06 Respiratory Rate 17 07/20/21 17:06 Blood Pressure 138/63 07/20/21 17:06 Pulse Oximetry 98 07/20/21 17:06 MDM - General Adult MDM Narrative: Medical decision making narrative: Patient is 85-year-old female with a history of hyperlipidemia, COPD, CAD and anxiety who presents emergency room for evaluation of worsening altered mental status since previous office visit. Patient was diagnosed with UTI from 1 week prior. On exam, patient is hemodynamically stable without any flank tenderness palpation and no suprapubic tenderness. Appears mildly confused. Patient has no focal complaints at this time. No signs of pyelonephritis. Work-up: Altered renal status UA is consistent with UTI. Patient received ceftriaxone in the emergency room. Patient tolerated p.o. without any difficulty in the emergency room. Rx cephalexin BID x 10 days Was found to have a troponin of 30 above her baseline of 19, pending repeat troponin and reassessment. However at 7:00pm, Case was discussed patient's proxy son Manpreet. Proxy counseled regarding risks of leaving including severe morbidity, brain , hypoxia, arrythmia, , chest pain, or any other unwanted consequences of leaving against medical advice today. Proxy verbalizes understanding of the risks and still wishes to leave AMA. Signed AMA paperwork. Proxy advised that patient is welcome to return at any time. He was instructed that patient may come back if symptoms continue to persist and that emergent adverse conditions have not fully been ruled out. Patient is A&Ox3 and has capacity and is of sound mind to make decisions. I have reiterated the importance of following up with a primary care provider in the next week for reevaluation her problem. Disposition: Admission Lab Data: Labs: Lab Results 07/20/21 07/20/21 07/20/21 15:00 15:00 15:00 WBC 5.7 10^3/uL 10^3/ uL (4.0-10.0) RBC 3.76 10^6/uL L 10 ^6/uL (4.1-5.3) Hgb 11.5 g/dL g/dL (11.5-15.3) Hct 35.4 % L % (37.0-47.0) MCV 94.1 fl fl (81-99) MCH 30.6 pg pg (28.0-34.0) MCHC 32.5 g/dL g/dL (30.0-36.0) RDW 13.2 % % (12.1-15.1) Plt Count 195 10^3/cmm 10^3 /cmm (130-400) MPV 10.9 fL H fL (7.4-10.4) Neut % (Auto) 46.3 % % Lymph % (Auto) 39.7 % % [place] % (Auto) 10.3 % % Eos % (Auto) 2.8 % % Baso % (Auto) 0.7 % % Neut # (Auto) 2.65 10^3/uL 10^3 /uL (1.8-7.7) Lymph # (Auto) 2.3 10^3/uL 10^3/ uL (0.8-4.8) [place] # (Auto) 0.6 10^3/uL 10^3/ uL (0.2-0.9) Eos # (Auto) 0.2 10^3/uL 10^3/ uL (0.0-0.8) Baso # (Auto) 0.0 10^3/uL 10^3/ uL (0.0-0.1) Nucleated RBC % (a uto) 0 % % Nucleated RBCs # 0.0 /100WBC /100W BC Sodium 141 mmol/L mmol/L (136-145) Potassium 4.2 mmol/L mmol/L (3.5-5.1) Chloride 108 mmol/L H mmol /L (98-107) Carbon Dioxide 21 mmol/L L mmol/ L (22-29) Anion Gap 16.2 (5-19) BUN 18 mg/dL mg/dL (8-23) Creatinine 0.9 mg/dL mg/dL (0.5-0.9) GFR Calculation Not Reportable Glucose 86 mg/dL mg/dL (65-115) Calculated Osmolal ity 293 mOsm/kg mOsm/ kg (285-295) Lactic Acid 1.2 mmol/L mmol/L (0.5-2.2) Calcium 8.6 mg/dL mg/dL (8.5-10.5) Total Bilirubin 0.2 mg/dL mg/dL (0.15-1.2) AST 26 U/L U/L (0-32) ALT 15 U/L U/L (0-33) Alkaline Phosphata se 46 IU/L IU/L (35-105) Troponin T Baselin e Total Protein 5.5 g/dL L g/dL (6.6-8.7) Albumin 3.8 g/dL g/dL (3.5-5.2) Globulin 1.7 g/dL g/dL (1.3-4.6) Lipase 29 U/L U/L (13-60) TSH 1.83 uIU/mL uIU/m L (0.27-4.20) Urine Color Urine Appearance Urine pH Ur Specific Gravit y Urine Protein Urine Glucose (UA) Urine Ketones Urine Blood Urine Nitrate Urine Bilirubin Urine Urobilinogen Ur Leukocyte Lisa ase Urine RBC Urine WBC Ur Squamous Epith Cells Amorphous Sediment Urine Bacteria Urine Mucus 07/20/21 07/20/21 15:00 16:59 WBC RBC Hgb Hct MCV MCH MCHC RDW Plt Count MPV Neut % (Auto) Lymph % (Auto) [place] % (Auto) Eos % (Auto) Baso % (Auto) Neut # (Auto) Lymph # (Auto) [place] # (Auto) Eos # (Auto) Baso # (Auto) Nucleated RBC % (a uto) Nucleated RBCs # Sodium Potassium Chloride Carbon Dioxide Anion Gap BUN Creatinine GFR Calculation Glucose Calculated Osmolal ity Lactic Acid Calcium Total Bilirubin AST ALT Alkaline Phosphata se Troponin T Baselin e 30 ng/L H ng/L (0-10) Total Protein Albumin Globulin Lipase TSH Urine Color Yellow (Yellow) Urine Appearance Clear (CLEAR) Urine pH 5 (5-7) Ur Specific Gravit y 1.025 (1.005-1.030) Urine Protein Neg (Negative) Urine Glucose (UA) Norm (Normal) Urine Ketones 1+ H (Negative) Urine Blood 2+ H (Negative) Urine Nitrate Negative (Negative) Urine Bilirubin Neg (Negative) Urine Urobilinogen Norm mg/dL mg/dL (Negative) Ur Leukocyte Lisa ase 2+ H (Negative) Urine RBC 0-4 /hpf H /hpf (0-2) Urine WBC 25-40 /hpf H /hpf (0-5) Ur Squamous Epith Cells 15-25 /hpf H /hpf (0-5) Amorphous Sediment Not Reportable Urine Bacteria 1+ /hpf H /hpf (NONE) Urine Mucus 3+ /hpf /hpf Imaging Data^: Other Imaging: Radiologist's impression: [facility] [address] [id number] Scan ReportSigned Patient: Karen Sharp AUnit #: [id number]: 1935cct#:[id number]/Sex: 85 / FADM Date: 07/20/21Loc: ERRoom/Bed:Attending Dr: Ordering Provider/Ordering MD: Zeinab Bingham MD Date of Service: 07/20/21 Procedure(s): CT head wo con* [id number] Accession Number(s): [id number] Report Number: [id number] WS: [id number] CT HEAD NONCONTRAST HISTORY: ams TECHNIQUE: Contiguous axial imaging performed through the brain in 2.5 mm imaging. Bone and soft tissue windows. Sagittal and coronal reformats reviewed. [facility] use at least one of these dose optimization techniques: automated exposure control; mA and/or kV adjustment per patient size (includes targeted exams where dose is matched to clinical indication); or iterative reconstruction. DLP: 868.33 mGy.cm COMPARISON: None available. No acute intracranial hemorrhage, midline shift or mass effect. Very mild bilateral symmetric atrophy and chronic microvascular ischemic type changes. No prior infarct. Ventricles: Normal size with no hydrocephalus. No inferior displacement of cerebellar tonsils. Paranasal sinuses: As visualized are clear. Mastoid air cells: Well pneumatized. Calvarium and scalp: Skull is intact with no soft tissue edema or swelling. CT/CT head wo con* [id number] IMPRESSION: 1. No acute intracranial hemorrhage or edema. 2. Mild atrophy and mild chronic microvascular ischemic disease. Dictated By:Fay Patel DOSigned By:Fay Patel DOSigned Date/Time:07/20/21 1541DD/ 1537 Discharge Plan Discharge Patient Disposition: Left Against Medical Advice Clinical Impression: Altered mental status, Acute UTI Condition: Stable Prescriptions: New cephalexin 500 mg capsule 500 mg PO BID 10 Days Qty: 20 RF: 0 No Action (DME) blood pressure monitor [Blood Pressure Kit] Kit See Rx Instructions .ROUTE .MEDSUPPLY Qty: 1 RF: 0 diclofenac sodium [Voltaren] 1 % gel 2 g topical QID 30 Days Qty: 100 RF: 2 donepezil [Aricept] 5 mg tablet 5 mg PO DAILY Qty: 30 RF: 0 omeprazole magnesium [Prilosec OTC] 20 mg tablet,delayed release (DR/EC) 20 mg PO DAILY Qty: 1 RF: 0 calcium carbonate [Calcium 500] 500 mg calcium (1,250 mg) tablet,chewable 500 mg PO DAILY@08 RF: 0 albuterol sulfate [Ventolin HFA] 90 mcg/actuation HFA aerosol inhaler 2 puff INHALATION Q6H PRN (Reason: Shortness Of Breath) RF: 0 ascorbic acid (vitamin C) 250 mg tablet 250 mg PO DAILY@08 RF: 0 omega-3 fatty acids 500 mg capsule 500 mg PO DAILY@08 RF: 0 coenzyme Q10 [Co Q-10] 100 mg capsule 100 mg PO DAILY RF: 0 duloxetine 20 mg capsule,delayed release(DR/EC) 20 mg PO BID 30 Days Qty: 60 RF: 5 loratadine [Claritin] 10 mg tablet 10 mg PO DAILY 30 Days Qty: 30 RF: 5 lisinopril 20 mg tablet 20 mg PO BID Qty: 60 RF: 6 Adult Low Dose Aspirin 81 mg tablet,delayed release (DR/EC) 81 mg PO BID RF: 0 multivitamin Tablet 1 tab PO DAILY@08 RF: 0 cholecalciferol (vitamin D3) [Vitamin D3] 25 mcg (1,000 unit) Tablet,Chewable 25 mcg PO DAILY@08 RF: 0 Probiotic 3 billion cell Capsule 3,000 mmu cells PO DAILY@08 RF: 0 Referrals: Darcie Martinez, OFFICE INSPECTOR-C [Primary Care Provider] - Discharge Diet: Advance as tolerated Discharge Activity: Resume usual activity Patient Instructions: Altered Mental Status (ED) Coding Level of Care Code ED Pension Fund Manager for Justin Oconnell
--- NOTE | 2021-07-20 17:04 | XRR_ITS ---
PROCEDURE INFORMATION: Exam: XR Chest Exam date and time: 07/20/2021 5:04 PM Age: 85 years old Clinical indication: Shortness of breath; Additional info: Eval pna TECHNIQUE: Imaging protocol: XR of the chest. Views: 1 view. COMPARISON: CR XR chest 1V portable [id number] 09/07/2020 10:56 AM FINDINGS: Lungs: Unremarkable. No consolidation. Pleural spaces: Unremarkable. No pleural effusion. No pneumothorax. Heart/Mediastinum: Unremarkable. No cardiomegaly. Bones/joints: Visualized osseous structures are intact. XR/XR chest 1V portable [id number] IMPRESSION: No acute findings. Radiation Dose CTDIVOL = (mGy): DLP = (mGy-cm)
[2021-07-20 17:06] VITALS: BP 138/63; PULSE 70; RESP 17; O2SAT 98
[2021-07-20] MEDS: cefTRIAXone 1,000 MG in sodium chloride 0.9% (plus) 50 ML 100 MG IV (17:08)
[2021-07-20 17:54] LABS: Add Urine Microscopic? YES; Bilirubin Urine Neg (Negative); Blood Urine 2+ (Negative); Glucose Urine UA Norm (Normal); Ketones Urine 1+ (Negative); Leukocyte Esterase Urine 2+ (Negative); Nitrate Urine Negative (Negative); Protein Urine Neg (Negative); Specific Gravity, Urine 1.025 (1.005-1.030); Urine Appearance Clear (CLEAR); Urine Color Yellow (Yellow); Urobilinogen Urine Norm (Negative); pH Urine 5 (5-7)
[2021-07-20 17:55] LABS: Add Urine Culture? No; Bacteria Urine 1+ /hpf; Mucus Urine 3+ /hpf; RBC Urine 0-4 /hpf (0-2); Squamous Epithelial Cell Urine 15-25 /hpf (0-5); WBC Urine 25-40 /hpf (0-5)
[2021-07-20 19:33] VITALS: BP 103/68; PULSE 96; RESP 18; O2SAT 96
== END 2021-07-20 19:35 | disposition left against medical advice (07) ==
PROVIDERS: Emergency Medicine; Physician Assistant; Emergency Provider Emergency Medicine; PCP Nurse Practitioner
DX: R41.82 Altered mental status, unspecified (principal); N39.0 Urinary tract infection, site not specified; Z53.29 Procedure and treatment not carried out because of patient's decision for other reasons; E78.5 Hyperlipidemia, unspecified; J44.9 Chronic obstructive pulmonary disease, unspecified; I25.10 Atherosclerotic heart disease of native coronary artery without angina pectoris; F41.9 Anxiety disorder, unspecified; Z79.82 Long term (current) use of aspirin
CPT/HCPCS: 51701; 70450; 71045; 80053; 81001; 83605; 83690; 84443; 84484; 85025; 87040; 93005; 96365; 99284; J0696

== ENCOUNTER 2021-08-14 22:08 | Inpatient (IN) | payer MEDICARE, SELFPAY ==
[2021-08-14 22:13] VITALS: BP 110/85; PULSE 75; RESP 18; TEMP 36.6; O2SAT 99; BMI 27.4
--- NOTE | 2021-08-14 22:30 | CTR_ITS ---
PROCEDURE INFORMATION: Exam: CT Head Without Contrast Exam date and time: 08/14/2021 10:30 PM Age: 85 years old Clinical indication: Altered mental status/memory loss; Confusion or disorientation; Additional info: AMS TECHNIQUE: Imaging protocol: Computed tomography of the head without contrast. Radiation optimization: All CT scans at this facility use at least one of these dose optimization techniques: automated exposure control; mA and/or kV adjustment per patient size (includes targeted exams where dose is matched to clinical indication); or iterative reconstruction. COMPARISON: CT head wo con* [id number] 2021-07-20 15:30 RADIATION DOSE METRICS: Total DLP (mGy-cm): 620.13 FINDINGS: Brain: Diffuse mild cerebral age related volume loss. Mild patchy low attenuation in the white matter compatible with mild chronic small vessel ischemic disease. No midline shift, mass, fluid collection, or evidence of hemorrhage. Cerebral ventricles: Ventricular enlargement proportional to volume loss. Paranasal sinuses: Visualized sinuses are unremarkable. No fluid levels. Mastoid air cells: Visualized mastoid air cells are well aerated. Bones/joints: Unremarkable. No acute fracture. Soft tissues: Unremarkable. CT/CT head wo con* [id number] IMPRESSION: Mild involutional changes, no acute intracranial abnormality.
--- NOTE | 2021-08-14 22:30 | XRR_ITS ---
PROCEDURE INFORMATION: Exam: XR Chest Exam date and time: 08/14/2021 10:30 PM Age: 85 years old Clinical indication: Other: AMS TECHNIQUE: Imaging protocol: XR of the chest. Views: 1 view. COMPARISON: 1. CR (CHEST, ) 2021-07-20 17:19 2. CR XR chest 1V portable [id number] 2020-09-07 10:56 3. CR XR chest 2V* [id number] 2020-09-06 11:09 4. MRI Thoracic Spine w/o* [id number] 2014-09-10 13:28 FINDINGS: Lungs: Unremarkable. No consolidation. Pleural spaces: Unremarkable. No pleural effusion. No pneumothorax. Heart/Mediastinum: Unremarkable. No cardiomegaly. Diaphragm: Mild elevation of the left hemidiaphragm. Bones/joints: Unremarkable. XR/XR chest 1V portable [id number] IMPRESSION: No acute findings.
[2021-08-14 22:56] VITALS: BP 129/46; PULSE 80; RESP 19; O2SAT 100
[2021-08-14 23:30] LABS: ABG PH Result 7.41 (7.35-7.45); Arterial Blood Gas Hematocrit 40.4 % (37-47); Base Excess ABG -3.1 mmol/L (-2.0-2.0); Blood Gas Sample Site Radial, left; Blood Gas Sample Type Arterial; HCO3 ABG 20.8 mmol/L (22-26); Oxygen Device NC
[2021-08-14 23:41] VITALS: BP 131/64; PULSE 85; RESP 21; O2SAT 92
[2021-08-14] MEDS: naloxone 0.4 mg/ml SDV IVP (23:45)
[2021-08-14] MEDS: sodium chloride 0.9% 1,000 ML 999 ML IV (23:47)
[2021-08-14 23:49] LABS: Basophils % 0.2 %; Eosinophils % 0.1 %; Hematocrit 40.3 % (37.0-47.0); Hemoglobin 13.2 g/dL (11.5-15.3); Lymphocytes # 1.1 10^3/uL (0.8-4.8); Lymphocytes % 11.3 %; Mean Corpuscular HGB Conc 32.8 g/dL (30.0-36.0); Mean Corpuscular Hemoglobin 31.4 pg (28.0-34.0); Mean Corpuscular Volume 95.7 fl (81-99); Mean Platelet Volume 12.3 fL (7.4-10.4); Monocytes # 0.9 10^3/uL (0.2-0.9); Monocytes % 9.1 %; Neutrophils # 7.44 10^3/uL (1.8-7.7); Neutrophils % 78.8 %; Nucleated Red Blood Cells % 0 %; Platelet Count 201 10^3/cmm (130-400); Red Blood Count 4.21 10^6/uL (4.1-5.3); Red Cell Distribution Width 14.2 % (12.1-15.1); White Blood Count 9.5 10^3/uL (4.0-10.0)
[2021-08-15] VITALS (10 sets, daily range): BP systolic 115–143; BP diastolic 46–90; PULSE 49–103; RESP 14–25; TEMP 36.6–37.2; O2SAT 94–99
[2021-08-15 00:07] LABS: Alanine Aminotransferase 37 U/L (0-33); Albumin Level 3.7 g/dL (3.5-5.2); Alkaline Phosphatase 51 IU/L (35-105); Blood Urea Nitrogen 33 mg/dL (8-23); C Reactive Protein 16.6 mg/L (0.0-4.9); Calcium 8.8 mg/dL (8.5-10.5); Carbon Dioxide 20 mmol/L (22-29); Chloride 108 mmol/L (98-107); Globulin 2.1 g/dL (1.3-4.6); Glucose 96 mg/dL (65-115); Osmolality Calculated 313 mOsm/kg (285-295); Phosphorus 3.3 mg/dL (2.5-4.5); Sodium 148 mmol/L (136-145); Total Bilirubin 0.4 mg/dL (0.15-1.2); Total Protein 5.8 g/dL (6.6-8.7)
[2021-08-15 00:09] LABS: Aspartate Amino Transferase 52 U/L (0-32); Creatinine Clr Calc Pharmacy 37.1894
--- NOTE | 2021-08-15 00:49 | ECG_ITS ---
[facility] Test Date: 2021-08-15 Pat Name: Karen Sharp Department: Room: Gender: Female Hand Paster: : 1935 Requested By: Raman Lima Order Number: [id number] Reading MD: AWA MCKEON Measurements Intervals [place] Rate: 84 P: 71 [place]: 139 QRS: 73 QRSD: 69 T: 261 QT: 361 QTc: 428 Interpretive Statements SINUS RHYTHM NONSPECIFIC ST & T-WAVE ABNORMALITY Compared to ECG 07/20/2021 14:55:27 No significant changes Electronically Signed On 08-15-2021 19:03:41 REPAIRER WOOD FURNITURE by AWA MCKEON [email or web address] [id number]
[2021-08-15 01:21] LABS: Troponin T (5th) Once 106 ng/L (0-10)
--- NOTE | 2021-08-15 01:48 | W.ED.AMS ---
Documented by User: Raman Guidry, 08/15/21 06:32 HPI - Altered Mental Status General: Chief Complaint: Altered Mental Status Stated Complaint: AMS Time Seen by Provider: 08/14/21 22:13 History of Present Illness: HPI narrative: 85-year-old female who lives at home. She comes with a complaint of altered mental status. She is nonverbal. According to her family, she has been like this for a while. Specific concerns of the family are unknown at this point. MD complaint: altered mental status and decreased responsiveness Onset (ago): week(s) Timing confirmed by: family member Severity: moderate Context: other Associated symptoms: Reports other Review of Systems General: Reports: ROS unobtainable due to medical condition PFS ED PFSH: Medical History Age related osteoporosis Angina pectoris COPD (chronic obstructive pulmonary disease) Coronary artery disease Dyslipidemia Generalized anxiety disorder HTN (hypertension) Hypersomnia with sleep apnea Nocturnal hypoxemia w/ O2 at 2 litters Surgical History History of hysterectomy for cancer 2004 uterus Family History Brother Cancer brain tumor Other Diabetes Hypertension Social History Second hand smoke exposure: No Smoking risk assessment/counseling performed?: No Alcohol intake: never Desire information about alcohol rehabilitation?: No Counseling given: No Desire information about substance/drug rehabilitation?: No Counseling given: No Adopted: No Lives independently: Yes Household members: family Housing: House Marital status: / Number of children: 4 Number of grandchildren: 11 Highest education level completed: Some College, No Degree service: No Current occupational status: retired History of recent travel: No Current gender identity: Female Leatha/Scientology: Yarsanism Physical Exam Const: ORIENTATION/CONSCIOUSNESS: Yes awake, Yes oriented to person and Yes confused; not oriented to place and not oriented to time HENMT: COMMON NORMALS: normocephalic and atraumatic HEAD & SCALP: normocephalic and atraumatic Chest: COMMONS NORMALS: normal inspection of the chest Resp: COMMON NORMALS: normal respiratory effort, No use of accessory muscles and clear to auscultation bilaterally AUSCULTATION: clear to auscultation bilaterally Cardio: COMMON NORMALS: regular rate and regular rhythm RATE: regular rate RHYTHM: regular rhythm GI: COMMON NORMALS: Normal to inspection, nondistended, normoactive bowel sounds present and Soft to palpation PALPATION: Yes Soft to palpation Neuro: LIDIA COMA SCALE: document GCS findings Lidia coma scale eye opening: Spontaneous Lidia coma scale verbal response: Words Chambers coma scale motor response: Normal flexion Lidia coma scale total score: 11 SENSORIUM/ORIENTATION: Yes oriented to person, No oriented to place and No oriented to time SPEECH: abnormal speech Course Vital Signs: Vital signs: Vital Signs Temperature 97.9 F 08/14/21 22:13 Pulse Rate 87 08/15/21 07:41 Respiratory Rate 23 H 08/15/21 07:41 Blood Pressure 116/80 08/15/21 07:41 Pulse Oximetry 98 08/15/21 07:41 MDM - Altered Mental Status MDM Narrative: Medical decision making narrative: 85-year-old essentially nonverbal patient, whom we know little about. She presents with altered mental status of unknown duration. She does not seem to want to move her left side. She moves her right side more purposefully, scratches her eyebrow, etc. On arrival, she was able to say her name, she currently is not. At 1 point, she exhibited some tonic-clonic motion, although her eyes were open, and she seemed to make purposeful movements during this. She was given Versed with resolution of those movements. Her sodium is 148, her bicarb is 20. Her BUN is 30 creatinine of 1. Her lactate is 2. She does not have a leukocytosis or fever. Her hemoglobin is 13. Her CT of the head was negative for any acute change including evolving stroke. Her chest x-ray was negative as well. She does have a urinary tract infection on cath UA, and was given Rocephin for this as well as IV fluid, 2 L. Lumbar puncture was attempted, but was dry. The tap was not traumatic. MRI of the head with and without contrast is pending. She will be checked out to Dr. Aguirre at shift change. Lab Data: Labs: Lab Results 08/14/21 08/14/21 08/14/21 23:18 23:19 23:19 WBC 9.5 10^3/uL 10^3/ uL (4.0-10.0) RBC 4.21 10^6/uL 10^6 /uL (4.1-5.3) Hgb 13.2 g/dL g/dL (11.5-15.3) Hct 40.3 % % (37.0-47.0) MCV 95.7 fl fl (81-99) MCH 31.4 pg pg (28.0-34.0) MCHC 32.8 g/dL g/dL (30.0-36.0) RDW 14.2 % % (12.1-15.1) Plt Count 201 10^3/cmm 10^3 /cmm (130-400) MPV 12.3 fL H fL (7.4-10.4) Neut % (Auto) 78.8 % % Lymph % (Auto) 11.3 % % Kimble % (Auto) 9.1 % % Eos % (Auto) 0.1 % % Baso % (Auto) 0.2 % % Neut # (Auto) 7.44 10^3/uL 10^3 /uL (1.8-7.7) Lymph # (Auto) 1.1 10^3/uL 10^3/ uL (0.8-4.8) Kimble # (Auto) 0.9 10^3/uL 10^3/ uL (0.2-0.9) Eos # (Auto) 0.0 10^3/uL 10^3/ uL (0.0-0.8) Baso # (Auto) 0.0 10^3/uL 10^3/ uL (0.0-0.1) Nucleated RBC % (a uto) 0 % % Nucleated RBCs # 0.0 /100WBC /100W BC Specimen Type Arterial Sample Site Radial, left ABG pH 7.41 (7.35-7.45) ABG pCO2 33.0 mmHg L mmHg (35-45) ABG pO2 169.0 mmHg H mmHg (80.0-100.0) ABG HCO3 20.8 mmol/L L mmo l/L (22-26) ABG Base Excess -3.1 mmol/L L mmo l/L (-2.0-2.0) Augusto Test N/a Hematocrit 40.4 % % (37-47) O2 Delivery Device Nc O2 Liters/Min 4.0 % % Deputy Insurance Commissioner ID Nicer2 Sodium 148 mmol/L H mmol /L (136-145) Potassium 4.0 mmol/L mmol/L (3.5-5.1) Chloride 108 mmol/L H mmol /L (98-107) Carbon Dioxide 20 mmol/L L mmol/ L (22-29) Anion Gap 24.0 H (5-19) BUN 33 mg/dL H mg/dL (8-23) Creatinine 1.0 mg/dL H mg/dL (0.5-0.9) GFR Calculation Not Reportable Glucose 96 mg/dL mg/dL (65-115) Calculated Osmolal ity 313 mOsm/kg H mOs m/kg (285-295) Lactate Calcium 8.8 mg/dL mg/dL (8.5-10.5) Phosphorus 3.3 mg/dL mg/dL (2.5-4.5) Magnesium 2.0 mg/dL mg/dL (1.7-2.3) Total Bilirubin 0.4 mg/dL mg/dL (0.15-1.2) AST 52 U/L H U/L (0-32) ALT 37 U/L H U/L (0-33) Alkaline Phosphata se 51 IU/L IU/L (35-105) Troponin T Gen 5 n g/L C-Reactive Protein 16.6 mg/L H mg/L (0.0-4.9) Total Protein 5.8 g/dL L g/dL (6.6-8.7) Albumin 3.7 g/dL g/dL (3.5-5.2) Globulin 2.1 g/dL g/dL (1.3-4.6) Urine Color Urine Appearance Urine pH Ur Specific Gravit y Urine Protein Urine Glucose (UA) Urine Ketones Urine Blood Urine Nitrate Urine Bilirubin Urine Urobilinogen Ur Leukocyte Lisa ase Urine RBC Urine WBC Ur Squamous Epith Cells Amorphous Sediment Urine Bacteria 08/14/21 08/14/21 08/15/21 23:19 23:19 01:35 WBC RBC Hgb Hct MCV MCH MCHC RDW Plt Count MPV Neut % (Auto) Lymph % (Auto) Kimble % (Auto) Eos % (Auto) Baso % (Auto) Neut # (Auto) Lymph # (Auto) Kimble # (Auto) Eos # (Auto) Baso # (Auto) Nucleated RBC % (a uto) Nucleated RBCs # Specimen Type Sample Site ABG pH ABG pCO2 ABG pO2 ABG HCO3 ABG Base Excess Augusto Test Hematocrit O2 Delivery Device O2 Liters/Min Deputy Insurance Commissioner ID Sodium Potassium Chloride Carbon Dioxide Anion Gap BUN Creatinine GFR Calculation Glucose Calculated Osmolal ity Lactate 2.0 mmol/L mmol/L (0.5-2.2) Calcium Phosphorus Magnesium Total Bilirubin AST ALT Alkaline Phosphata se Troponin T Gen 5 n g/L 106 ng/L H* ng/L 108 ng/L H* ng/L (0-10) (0-10) C-Reactive Protein Total Protein Albumin Globulin Urine Color Urine Appearance Urine pH Ur Specific Gravit y Urine Protein Urine Glucose (UA) Urine Ketones Urine Blood Urine Nitrate Urine Bilirubin Urine Urobilinogen Ur Leukocyte Lisa ase Urine RBC Urine WBC Ur Squamous Epith Cells Amorphous Sediment Urine Bacteria 08/15/21 03:35 WBC RBC Hgb Hct MCV MCH MCHC RDW Plt Count MPV Neut % (Auto) Lymph % (Auto) Kimble % (Auto) Eos % (Auto) Baso % (Auto) Neut # (Auto) Lymph # (Auto) Kimble # (Auto) Eos # (Auto) Baso # (Auto) Nucleated RBC % (a uto) Nucleated RBCs # Specimen Type Sample Site ABG pH ABG pCO2 ABG pO2 ABG HCO3 ABG Base Excess Augusto Test Hematocrit O2 Delivery Device O2 Liters/Min Deputy Insurance Commissioner ID Sodium Potassium Chloride Carbon Dioxide Anion Gap BUN Creatinine GFR Calculation Glucose Calculated Osmolal ity Lactate Calcium Phosphorus Magnesium Total Bilirubin AST ALT Alkaline Phosphata se Troponin T Gen 5 n g/L C-Reactive Protein Total Protein Albumin Globulin Urine Color Yellow (Yellow) Urine Appearance Sl cloudy A (CLEAR) Urine pH 5 (5-7) Ur Specific Gravit y 1.020 (1.005-1.030) Urine Protein Neg (Negative) Urine Glucose (UA) Norm (Normal) Urine Ketones 1+ H (Negative) Urine Blood 2+ H (Negative) Urine Nitrate Positive H (Negative) Urine Bilirubin Neg (Negative) Urine Urobilinogen 1 mg/dL H mg/dL (Negative) Ur Leukocyte Lisa ase 2+ H (Negative) Urine RBC 5-10 /hpf H /hpf (0-2) Urine WBC >100 /hpf H /hpf (0-5) Ur Squamous Epith Cells 25-40 /hpf H /hpf (0-5) Amorphous Sediment Not Reportable Urine Bacteria 4+ /hpf H /hpf (NONE) Discharge Plan Discharge Patient Disposition: Admitted As Inpatient Clinical Impression: Acute CVA (cerebrovascular accident), HTN (hypertension), Memory change Condition: Stable Prescriptions: No Action (DME) blood pressure monitor [Blood Pressure Kit] Kit See Rx Instructions .ROUTE .MEDSUPPLY Qty: 1 RF: 0 diclofenac sodium [Voltaren] 1 % gel 2 g topical QID 30 Days Qty: 100 RF: 2 donepezil [Aricept] 5 mg tablet 5 mg PO DAILY Qty: 30 RF: 0 omeprazole magnesium [Prilosec OTC] 20 mg tablet,delayed release (DR/EC) 20 mg PO DAILY Qty: 1 RF: 0 calcium carbonate [Calcium 500] 500 mg calcium (1,250 mg) tablet,chewable 500 mg PO DAILY@08 RF: 0 albuterol sulfate [Ventolin HFA] 90 mcg/actuation HFA aerosol inhaler 2 puff INHALATION Q6H PRN (Reason: Shortness Of Breath) RF: 0 omega-3 fatty acids 500 mg capsule 500 mg PO DAILY@08 RF: 0 coenzyme Q10 [Co Q-10] 100 mg capsule 100 mg PO DAILY RF: 0 duloxetine 20 mg capsule,delayed release(DR/EC) 20 mg PO BID 30 Days Qty: 60 RF: 5 loratadine [Claritin] 10 mg tablet 10 mg PO DAILY 30 Days Qty: 30 RF: 5 lisinopril 20 mg tablet 20 mg PO BID Qty: 60 RF: 6 aspirin [Adult Low Dose Aspirin] 81 mg tablet,delayed release (DR/EC) 81 mg PO BID RF: 0 cholecalciferol (vitamin D3) [Vitamin D3] 25 mcg (1,000 unit) Tablet,Chewable 25 mcg PO DAILY@08 RF: 0 clopidogrel 75 mg tablet 75 mg PO DAILY RF: 0 Vitamin C 500 mg Tablet 500 mg PO DAILY RF: 0 Adult Multivitamin Gummies 200 mcg Tablet,Chewable 1 tab PO DAILY RF: 0 Prevagen 1 cap PO DAILY RF: 0 Referrals: Darcie Martinez FNP-C [Primary Care Provider] - Sign Out Sign Out Data: Patient Sign Out occurred on 08/15/21 at 06:37. Patient's care was discussed, and care was transferred from to Lobo Aguirre DO. Coding Level of Care Code ED Equipment Sales Specialist for Chg Fwd Exam Detailed Documented by User: Lobo Aguirre DO 08/15/21 10:38 HPI - Altered Mental Status General: Chief Complaint: Altered Mental Status Stated Complaint: AMS Time Seen by Provider: 08/14/21 22:13 PFSH ED PFSH: Medical History Age related osteoporosis Angina pectoris COPD (chronic obstructive pulmonary disease) Coronary artery disease Dyslipidemia Generalized anxiety disorder HTN (hypertension) Hypersomnia with sleep apnea Nocturnal hypoxemia w/ O2 at 2 litters Surgical History History of hysterectomy for cancer 2004 uterus Family History Brother Cancer brain tumor Other Diabetes Hypertension Social History Second hand smoke exposure: No Smoking risk assessment/counseling performed?: No Alcohol intake: never Desire information about alcohol rehabilitation?: No Counseling given: No Desire information about substance/drug rehabilitation?: No Counseling given: No Adopted: No Lives independently: Yes Household members: family Housing: House Marital status: / Number of children: 4 Number of grandchildren: 11 Highest education level completed: Some College, No Degree service: No Current occupational status: retired History of recent travel: No Current gender identity: Female Leatha/Scientology: Yarsanism Course Vital Signs: Vital signs: Vital Signs Temperature 97.9 F 08/14/21 22:13 Pulse Rate 87 08/15/21 07:41 Respiratory Rate 23 H 08/15/21 07:41 Blood Pressure 116/80 08/15/21 07:41 Pulse Oximetry 98 08/15/21 07:41 MDM - Altered Mental Status MDM Narrative: Medical decision making narrative: Care assumed from Dr. Guidry at change of shift. MRI pending shows large acute CVA. Patient still poorly responsive discussed with family will admit for now discussed prognosis and anticipated level of care needs in the future Lab Data: Labs: Lab Results 08/14/21 08/14/21 08/14/21 23:18 23:19 23:19 WBC 9.5 10^3/uL 10^3/ uL (4.0-10.0) RBC 4.21 10^6/uL 10^6 /uL (4.1-5.3) Hgb 13.2 g/dL g/dL (11.5-15.3) Hct 40.3 % % (37.0-47.0) MCV 95.7 fl fl (81-99) MCH 31.4 pg pg (28.0-34.0) MCHC 32.8 g/dL g/dL (30.0-36.0) RDW 14.2 % % (12.1-15.1) Plt Count 201 10^3/cmm 10^3 /cmm (130-400) MPV 12.3 fL H fL (7.4-10.4) Neut % (Auto) 78.8 % % Lymph % (Auto) 11.3 % % Kimble % (Auto) 9.1 % % Eos % (Auto) 0.1 % % Baso % (Auto) 0.2 % % Neut # (Auto) 7.44 10^3/uL 10^3 /uL (1.8-7.7) Lymph # (Auto) 1.1 10^3/uL 10^3/ uL (0.8-4.8) Kimble # (Auto) 0.9 10^3/uL 10^3/ uL (0.2-0.9) Eos # (Auto) 0.0 10^3/uL 10^3/ uL (0.0-0.8) Baso # (Auto) 0.0 10^3/uL 10^3/ uL (0.0-0.1) Nucleated RBC % (a uto) 0 % % Nucleated RBCs # 0.0 /100WBC /100W BC Specimen Type Arterial Sample Site Radial, left ABG pH 7.41 (7.35-7.45) ABG pCO2 33.0 mmHg L mmHg (35-45) ABG pO2 169.0 mmHg H mmHg (80.0-100.0) ABG HCO3 20.8 mmol/L L mmo l/L (22-26) ABG Base Excess -3.1 mmol/L L mmo l/L (-2.0-2.0) Augusto Test N/a Hematocrit 40.4 % % (37-47) O2 Delivery Device Nc O2 Liters/Min 4.0 % % Deputy Insurance Commissioner ID Nicer2 Sodium 148 mmol/L H mmol /L (136-145) Potassium 4.0 mmol/L mmol/L (3.5-5.1) Chloride 108 mmol/L H mmol /L (98-107) Carbon Dioxide 20 mmol/L L mmol/ L (22-29) Anion Gap 24.0 H (5-19) BUN 33 mg/dL H mg/dL (8-23) Creatinine 1.0 mg/dL H mg/dL (0.5-0.9) GFR Calculation Not Reportable Glucose 96 mg/dL mg/dL (65-115) Calculated Osmolal ity 313 mOsm/kg H mOs m/kg (285-295) Lactate Calcium 8.8 mg/dL mg/dL (8.5-10.5) Phosphorus 3.3 mg/dL mg/dL (2.5-4.5) Magnesium 2.0 mg/dL mg/dL (1.7-2.3) Total Bilirubin 0.4 mg/dL mg/dL (0.15-1.2) AST 52 U/L H U/L (0-32) ALT 37 U/L H U/L (0-33) Alkaline Phosphata se 51 IU/L IU/L (35-105) Troponin T Gen 5 n g/L C-Reactive Protein 16.6 mg/L H mg/L (0.0-4.9) Total Protein 5.8 g/dL L g/dL (6.6-8.7) Albumin 3.7 g/dL g/dL (3.5-5.2) Globulin 2.1 g/dL g/dL (1.3-4.6) Urine Color Urine Appearance Urine pH Ur Specific Gravit y Urine Protein Urine Glucose (UA) Urine Ketones Urine Blood Urine Nitrate Urine Bilirubin Urine Urobilinogen Ur Leukocyte Lisa ase Urine RBC Urine WBC Ur Squamous Epith Cells Amorphous Sediment Urine Bacteria 08/14/21 08/14/21 08/15/21 23:19 23:19 01:35 WBC RBC Hgb Hct MCV MCH MCHC RDW Plt Count MPV Neut % (Auto) Lymph % (Auto) Kimble % (Auto) Eos % (Auto) Baso % (Auto) Neut # (Auto) Lymph # (Auto) Kimble # (Auto) Eos # (Auto) Baso # (Auto) Nucleated RBC % (a uto) Nucleated RBCs # Specimen Type Sample Site ABG pH ABG pCO2 ABG pO2 ABG HCO3 ABG Base Excess Augusto Test Hematocrit O2 Delivery Device O2 Liters/Min Deputy Insurance Commissioner ID Sodium Potassium Chloride Carbon Dioxide Anion Gap BUN Creatinine GFR Calculation Glucose Calculated Osmolal ity Lactate 2.0 mmol/L mmol/L (0.5-2.2) Calcium Phosphorus Magnesium Total Bilirubin AST ALT Alkaline Phosphata se Troponin T Gen 5 n g/L 106 ng/L H* ng/L 108 ng/L H* ng/L (0-10) (0-10) C-Reactive Protein Total Protein Albumin Globulin Urine Color Urine Appearance Urine pH Ur Specific Gravit y Urine Protein Urine Glucose (UA) Urine Ketones Urine Blood Urine Nitrate Urine Bilirubin Urine Urobilinogen Ur Leukocyte Lisa ase Urine RBC Urine WBC Ur Squamous Epith Cells Amorphous Sediment Urine Bacteria 08/15/21 03:35 WBC RBC Hgb Hct MCV MCH MCHC RDW Plt Count MPV Neut % (Auto) Lymph % (Auto) Kimble % (Auto) Eos % (Auto) Baso % (Auto) Neut # (Auto) Lymph # (Auto) Kimble # (Auto) Eos # (Auto) Baso # (Auto) Nucleated RBC % (a uto) Nucleated RBCs # Specimen Type Sample Site ABG pH ABG pCO2 ABG pO2 ABG HCO3 ABG Base Excess Augusto Test Hematocrit O2 Delivery Device O2 Liters/Min Deputy Insurance Commissioner ID Sodium Potassium Chloride Carbon Dioxide Anion Gap BUN Creatinine GFR Calculation Glucose Calculated Osmolal ity Lactate Calcium Phosphorus Magnesium Total Bilirubin AST ALT Alkaline Phosphata se Troponin T Gen 5 n g/L C-Reactive Protein Total Protein Albumin Globulin Urine Color Yellow (Yellow) Urine Appearance Sl cloudy A (CLEAR) Urine pH 5 (5-7) Ur Specific Gravit y 1.020 (1.005-1.030) Urine Protein Neg (Negative) Urine Glucose (UA) Norm (Normal) Urine Ketones 1+ H (Negative) Urine Blood 2+ H (Negative) Urine Nitrate Positive H (Negative) Urine Bilirubin Neg (Negative) Urine Urobilinogen 1 mg/dL H mg/dL (Negative) Ur Leukocyte Lisa ase 2+ H (Negative) Urine RBC 5-10 /hpf H /hpf (0-2) Urine WBC >100 /hpf H /hpf (0-5) Ur Squamous Epith Cells 25-40 /hpf H /hpf (0-5) Amorphous Sediment Not Reportable Urine Bacteria 4+ /hpf H /hpf (NONE) Discharge Plan Discharge Patient Disposition: Admitted As Inpatient Clinical Impression: Acute CVA (cerebrovascular accident), HTN (hypertension), Memory change Condition: Stable Prescriptions: No Action (DME) blood pressure monitor [Blood Pressure Kit] Kit See Rx Instructions .ROUTE .MEDSUPPLY Qty: 1 RF: 0 diclofenac sodium [Voltaren] 1 % gel 2 g topical QID 30 Days Qty: 100 RF: 2 donepezil [Aricept] 5 mg tablet 5 mg PO DAILY Qty: 30 RF: 0 omeprazole magnesium [Prilosec OTC] 20 mg tablet,delayed release (DR/EC) 20 mg PO DAILY Qty: 1 RF: 0 calcium carbonate [Calcium 500] 500 mg calcium (1,250 mg) tablet,chewable 500 mg PO DAILY@08 RF: 0 albuterol sulfate [Ventolin HFA] 90 mcg/actuation HFA aerosol inhaler 2 puff INHALATION Q6H PRN (Reason: Shortness Of Breath) RF: 0 omega-3 fatty acids 500 mg capsule 500 mg PO DAILY@08 RF: 0 coenzyme Q10 [Co Q-10] 100 mg capsule 100 mg PO DAILY RF: 0 duloxetine 20 mg capsule,delayed release(DR/EC) 20 mg PO BID 30 Days Qty: 60 RF: 5 loratadine [Claritin] 10 mg tablet 10 mg PO DAILY 30 Days Qty: 30 RF: 5 lisinopril 20 mg tablet 20 mg PO BID Qty: 60 RF: 6 aspirin [Adult Low Dose Aspirin] 81 mg tablet,delayed release (DR/EC) 81 mg PO BID RF: 0 cholecalciferol (vitamin D3) [Vitamin D3] 25 mcg (1,000 unit) Tablet,Chewable 25 mcg PO DAILY@08 RF: 0 clopidogrel 75 mg tablet 75 mg PO DAILY RF: 0 Vitamin C 500 mg Tablet 500 mg PO DAILY RF: 0 Adult Multivitamin Gummies 200 mcg Tablet,Chewable 1 tab PO DAILY RF: 0 Prevagen 1 cap PO DAILY RF: 0 Referrals: Darcie Martinez, [employer] CUTTING [employer]ACHINE [facility] [Primary Care Provider] - Sign Out Sign Out Data: Patient Sign Out occurred on 08/15/21 at 06:37. Patient's care was discussed, and care was transferred from to Lobo Aguirre DO. Coding Level of Care Code ED Equipment Sales Specialist for Chg Fwd Exam Detailed
[2021-08-15 02:10] LABS: Troponin T (5th) Once 108 ng/L (0-10)
[2021-08-15] MEDS: midazolam 1 mg/mL INJ 2 mL IVP (03:18)
--- NOTE | 2021-08-15 04:10 | MRR_ITS ---
PROCEDURE INFORMATION: Exam: MR Head Without Contrast Exam date and time: 08/15/2021 4:10 AM Age: 85 years old Clinical indication: Altered mental status/memory loss; Additional info: Altered mental status, left sided weakness TECHNIQUE: Imaging protocol: MR of the head without contrast. COMPARISON: CT head wo con* [id number] 08/14/2021 10:43 PM FINDINGS: Image quality is degraded by motion. Brain: There is no extra-axial collection or intra-axial mass. Moderate diffuse volume loss is within the range of normal for patient age. There are foci of increased T2/FLAIR white matter hyperintensity, nonspecific but typically small-vessel ischemia in this age group. There is a cortical pattern of diffusion restriction involving the right parietal and temporal lobes. There is no abnormal enhancement. Cerebral ventricles: Normal. No ventriculomegaly. Pituitary gland and sella: There is an expanded and empty sella. Bones/joints: Unremarkable. Paranasal sinuses: Normal as visualized. No acute sinusitis. Mastoid air cells: Normal as visualized. No mastoid effusion. Orbital cavity: Unremarkable. Soft tissues: Unremarkable. MR/MR head wo/w con [id number] IMPRESSION: Gyriform pattern of diffusion restriction involving the right parietal and right temporal lobes, most likely acute infarct.
[2021-08-15 04:24] LABS: Add Urine Microscopic? YES; Bilirubin Urine Neg (Negative); Blood Urine 2+ (Negative); Glucose Urine UA Norm (Normal); Ketones Urine 1+ (Negative); Leukocyte Esterase Urine 2+ (Negative); Nitrate Urine Positive (Negative); Protein Urine Neg (Negative); Urine Color Yellow (Yellow); Urobilinogen Urine 1 mg/dL (Negative); pH Urine 5 (5-7)
[2021-08-15 04:32] LABS: Squamous Epithelial Cell Urine 25-40 /hpf (0-5); WBC Urine >100 /hpf (0-5)
[2021-08-15 04:33] LABS: Add Urine Culture? No; Bacteria Urine 4+ /hpf
[2021-08-15] MEDS: cefTRIAXone 1,000 MG in sodium chloride 0.9% (plus) 50 ML 100 MG IV (04:47)
[2021-08-15] MEDS: midazolam 1 mg/mL INJ 2 mL 2 MG IVP (05:16)
[2021-08-15] MEDS: sodium chloride 0.9% 1,000 ML 999 ML IV (07:41)
--- NOTE | 2021-08-15 09:59 | PC.PHAR ---
pt unable to verify medications-pts son amanda [phone] verified pts medications-rx filled 06/01/21 90d/s-for plavix 75mg daily pts son amanda states he stop giving the pt this medication a few weeks ago-notes are made in the pharmacy comments
--- NOTE | 2021-08-15 12:26 | PM.HP ---
Providers/Chief Complaint Primary Care Provider: JUAN MANUEL Matute Chief Complaint: AMS History of Present Illness And trouble withJoyce Pro Sharp is a 85 year old female who presented to the emergency department with change in mental status. According to one son, she has not been interacting quite normal for the last 2 weeks but it has been worse since yesterday. She also been having difficulty with the function of her left hand for at least several days. She has had worsening mental status to where she is nonverbal today. Typically she can visit on the phone, ambulate despite some underlying dementia. In the emergency department she received some IV fluids, IV ceftriaxone, and attempted an LP. Towards the end of this dictation I was able to contact her usual caregiver. He confirms that he wants her allow natural . The left hand for several weeks with closing and not functioning quite as well. She was not talking as much in the last day or 2. In the last 2 days she has not been walking as well in the last day she has had trouble swallowing with pocketing food. For the last 2 months she has had greatly increased memory deficits. Review of Systems General: Reports: ROS unobtainable due to mental status (Patient unresponsive) Medications/Allergies Home Medications Medication Instructions Recorded Confirmed Last Taken Type albuterol sulfate 90 mcg/actuation 2 puff INHALATION Q6H PRN 09/10/19 08/15/21 Unknown History aerosol inhaler calcium carbonate 500 mg calcium 500 mg PO DAILY@08 tab 09/10/19 08/15/21 09/06/20 History (1,250 mg) chewable tablet omega-3 fatty acids 500 mg capsule 500 mg PO DAILY@08 cap 09/10/19 08/15/21 09/06/20 History blood pressure monitor #1 each 10/31/19 08/15/21 Unknown Rx cholecalciferol (vitamin D3) 25 mcg PO DAILY@08 09/07/20 08/15/21 09/06/20 History [Vitamin D3] coenzyme Q10 100 mg capsule 100 mg PO DAILY 12/24/20 08/15/21 Unknown History diclofenac sodium 1 % topical gel 2 g TOPICAL QID 30 Days #100 g 01/11/21 08/15/21 Unknown Rx duloxetine 20 mg capsule,delayed 20 mg PO BID 30 Days #60 cap 03/23/21 08/15/21 Unknown Rx release loratadine 10 mg tablet 10 mg PO DAILY 30 Days #30 tab 03/23/21 08/15/21 Unknown Rx lisinopril 20 mg tablet 20 mg PO BID #60 tab 05/25/21 08/15/21 Unknown Rx donepezil 5 mg tablet 5 mg PO DAILY #30 tab 07/13/21 08/15/21 Unknown Rx omeprazole magnesium 20 mg 20 mg PO DAILY #1 tab 07/13/21 08/15/21 Unknown Rx tablet,delayed release aspirin [Adult Low Dose Aspirin] 81 mg PO BID 07/20/21 08/15/21 Unknown History Prevagen 1 cap PO DAILY 08/15/21 08/15/21 Unknown History ascorbic acid (vitamin C) [Vitamin 500 mg PO DAILY 08/15/21 08/15/21 Unknown History C] clopidogrel 75 mg PO DAILY 08/15/21 08/15/21 Unknown History multivit with min-folic acid 1 tab PO DAILY 08/15/21 08/15/21 Unknown History [Adult Multivitamin Gummies] Allergies Allergy/AdvReac Type Severity Reaction Status Date / Time adhesive tape Allergy ALGY-Rash Verified 07/20/21 11:11 PFSH Acute PFSH: Medical History (Updated 08/15/21 @ 12:41 by Olivier Ramirez MD) Age related osteoporosis Angina pectoris COPD (chronic obstructive pulmonary disease) Coronary artery disease Dementia Dyslipidemia Generalized anxiety disorder HTN (hypertension) Hypersomnia with sleep apnea Nocturnal hypoxemia w/ O2 at 2 litters Surgical History History of hysterectomy for cancer 2004 uterus Family History Brother Cancer brain tumor Other Diabetes Hypertension Social History Second hand smoke exposure: No Smoking risk assessment/counseling performed?: No Alcohol intake: never Desire information about alcohol rehabilitation?: No Counseling given: No Desire information about substance/drug rehabilitation?: No Counseling given: No Adopted: No Lives independently: Yes Household members: family Housing: House Marital status: / Number of children: 4 Number of grandchildren: 11 Highest education level completed: Some College, No Degree service: No Current occupational status: retired History of recent travel: No Current gender identity: Female Leatha/Muslim: Pentecostal Vitals/I&O/Wt Last Vital Signs Temp 97.9 F 08/14/21 22:13 Pulse 87 08/15/21 07:41 Resp 23 H 08/15/21 07:41 BP 116/80 08/15/21 07:41 Pulse Ox 98 08/15/21 07:41 08/14/21 08/15/21 08/15/21 22:59 06:59 14:59 Intake Total 1000 / 1000 1050 / 1050 Balance 1000 / 1000 1050 / 1050 Weight last 48 hrs Weight 68.039 kg Physical Exam Narrative: EXAM NARRATIVE: General exam is an unresponsive white female, who will withdraw some from noxious stimuli. HEENT: Pupils equally round. Oropharynx clear, dry mucous membranes Cardiovascular regular rate and rhythm, heart sounds distant Lungs clear Abdomen is soft. Bowel sounds noted exam is deferred Extremities no cyanosis clubbing or edema Neurologic: Left hand in a fist, difficult to open up. Reduced movement noted on the left side. Patient is unresponsive. Gaze is midline. Urinary Catheter Management^: Ramirez: Cath Placed During This Visit: yes Reason for Continuing Indwelling Catheter: Accurate Measurement of Urinary Output in Critically Ill Patients Urinary Catheter Date of Insertion: 08/15/21 Urinary Catheter Time of Insertion: 03:37 Data : 08/14/21 23:19 08/14/21 23:19 Other data: ABG demonstrates a pH of 7.41, PCO2 of 33, PO2 of 169 on 4 L AST and ALT are slight elevated at 52 and 37 Troponin I 06 with repeat 1 await Urinalysis positive for nitrates, greater than 100 whites, 25-40 squamous Lactic acid 2.0 CT head no acute changes Chest x-ray No acute findings or infiltrate Previous carotid ultrasound with 50 to 69% right internal carotid and 50 to 69% left internal carotid August 2020 Echocardiogram August 2020 demonstrated EF of 60 to 65%, grade 1 diastolic dysfunction MRI demonstrates diffusion restriction right parietal and temporal lobes, most consistent with acute infarct EKG demonstrates sinus rhythm, normal axis, nonspecific ST-T wave abnormalities A&P Assessment and plan (1) Acute CVA (cerebrovascular accident): Prognosis extremely poor currently Therapy consultations Plavix, aspirin should she become alert enough to take it Hydration Permissive hypertension Telemetry Considering her current level of responsiveness and prognosis I do not see a reason to repeat carotid duplex, do a CTA, or perform an echocardiogram. I will reassess this on a daily basis. I was able to contact family and they would like her allow natural . Depending on how she does they would consider hospice at home as well. Status: Acute (2) HTN (hypertension): Allow for permissive hypertension Status: Chronic (3) Coronary artery disease: Currently does not appear to be having any acute coronary events Status: Acute Qualifiers: Associated angina: with unspecified angina Coronary Disease-Associated Artery/Lesion type: [place] artery [place] vs. transplanted heart: [place] heart Qualified Code(s): I25.119 - Atherosclerotic heart disease of [place] coronary artery with unspecified angina pectoris (4) COPD (chronic obstructive pulmonary disease): No evidence of exacerbation DuoNeb as needed Status: Acute (5) Dementia: Status: Acute Additional A&P Information Possible UTI. White blood cell count not elevated. No evidence of fever. Will culture urine, continue Rocephin currently. Lovenox for DVT prophylaxis Full code currently. Call in to family to discuss further. Attestations Medical Necessity Statement*: Will need greater than 2 midnight stay for evaluation and treatment of severe cerebrovascular accident. Time Spent in Patient Care: Greater than 35 minutes Coding Level of Care Code Acute Package Winder for Justin Fwd Diagnoses Acute CVA (cerebrovascular accident) I63.9 HTN (hypertension) I10 Coronary artery disease I25.119 Associated angina: with unspecified angina Coronary Disease-Associated Artery/Lesion type: [place] artery [place] vs. transplanted heart: [place] heart COPD (chronic obstructive pulmonary disease) J44.9 Dementia F03.90
[2021-08-15] MEDS: sodium chloride 0.9% 1,000 ML 75 ML IV (13:55)
[2021-08-15] MEDS: enoxaparin 40 mg/0.4 mL Syringe SUBCUT (13:55)
--- NOTE | 2021-08-15 18:22 | PC.NURSE ---
cody fraser call for an update. updated daughter and asked admission questions.
[2021-08-16] VITALS (8 sets, daily range): BP systolic 120–190; BP diastolic 52–78; PULSE 62–86; RESP 18–24; TEMP 36.4–36.7; O2SAT 90–98
[2021-08-16] MEDS: sodium chloride 0.9% 1,000 ML 75 ML IV (01:36)
[2021-08-16] MEDS: cefTRIAXone 1,000 MG in sodium chloride 0.9% (plus) 50 ML 100 MG IV (05:12)
[2021-08-16 06:00] LABS: Basophils % 0.3 %; Eosinophils # 0.1 10^3/uL (0.0-0.8); Eosinophils % 0.9 %; Hematocrit 33.9 % (37.0-47.0); Hemoglobin 10.8 g/dL (11.5-15.3); Lymphocytes # 1.3 10^3/uL (0.8-4.8); Lymphocytes % 18.5 %; Mean Corpuscular HGB Conc 31.9 g/dL (30.0-36.0); Mean Corpuscular Hemoglobin 30.5 pg (28.0-34.0); Mean Corpuscular Volume 95.8 fl (81-99); Mean Platelet Volume 12.1 fL (7.4-10.4); Monocytes # 0.6 10^3/uL (0.2-0.9); Monocytes % 9.2 %; Neutrophils # 4.89 10^3/uL (1.8-7.7); Neutrophils % 70.7 %; Nucleated Red Blood Cells % 0 %; Platelet Count 177 10^3/cmm (130-400); Red Blood Count 3.54 10^6/uL (4.1-5.3); Red Cell Distribution Width 14.4 % (12.1-15.1); White Blood Count 6.9 10^3/uL (4.0-10.0)
[2021-08-16 06:08] LABS: Cholesterol 153 mg/dL (0-200); HDL Cholesterol 51 mg/dL (60-100); LDL Cholesterol Calculated 81 mg/dL (50-129); LDL HDL Ratio 1.59 RATIO (0.00-3.22); Triglycerides 107 mg/dL (0-150)
[2021-08-16 06:10] LABS: Alanine Aminotransferase 32 U/L (0-33); Alkaline Phosphatase 44 IU/L (35-105); Anion Gap 18.5 (5-19); Aspartate Amino Transferase 51 U/L (0-32); Blood Urea Nitrogen 18 mg/dL (8-23); Calcium 7.7 mg/dL (8.5-10.5); Carbon Dioxide 20 mmol/L (22-29); Chloride 116 mmol/L (98-107); Globulin 1.9 g/dL (1.3-4.6); Glucose 79 mg/dL (65-115); Osmolality Calculated 313 mOsm/kg (285-295); Potassium 3.5 mmol/L (3.5-5.1); Sodium 151 mmol/L (136-145); Total Bilirubin 0.3 mg/dL (0.15-1.2); Total Protein 4.9 g/dL (6.6-8.7)
[2021-08-16 06:28] LABS: Estmated Average Glucose 131; Hemoglobin A1C 6.2 % (4.0-6.0)
[2021-08-16] MEDS: sodium chloride 0.45% 1,000 ML 100 ML IV ×2 (08:54→17:46)
--- NOTE | 2021-08-16 11:09 | PM.PN ---
Subjective Subjective: Interval history: Patient is more responsive today. When prompted she opens her eyes. Although she cannot carry on a conversation when I asked her to say hello she can do so. Medications: Reviewed: Yes Vitals/I&O/Wt Last Vital Signs Temp 98.1 F 08/16/21 08:00 Pulse 80 08/16/21 08:00 Resp 23 H 08/16/21 08:00 BP 190/52 08/16/21 08:00 Pulse Ox 98 08/16/21 08:00 08/15/21 08/16/21 08/16/21 22:59 06:59 14:59 Intake Total 926.25 / 1976.25 630.75 / 630.75 Output Total 575 / 575 150 / 725 Balance -575 / 475 776.25 / 1251.25 630.75 / 630.75 Weight last 48 hrs Weight 68.039 kg Physical Exam Narrative: EXAM NARRATIVE: General exam responsive by opening eyes HEENT: Pupils equally round. Oropharynx clear, dry mucous membranes Cardiovascular regular rate and rhythm, heart sounds distant Lungs clear Abdomen is soft. Bowel sounds noted exam is deferred Extremities no cyanosis clubbing or edema Neurologic: Left hand in a fist, difficult to open up. Reduced movement noted on the left side. No gaze deviation. Urinary Catheter Management^: Ramirez: Cath Placed During This Visit: yes Reason for Continuing Indwelling Catheter: Accurate Measurement of Urinary Output in Critically Ill Patients Urinary Catheter Date of Insertion: 08/15/21 Urinary Catheter Time of Insertion: 03:37 Data : 08/16/21 04:55 08/16/21 04:55 Micro: Microbiology 08/15/21 03:35 Urine Culture - Preliminary Urine Catheterized Gram Negative Rods A&P Assessment and plan (1) Acute CVA (cerebrovascular accident): Prognosis guarded, but she is more responsive than yesterday Therapy consultations Plavix, aspirin statin continue hydration. Change to half-normal saline. Check BMP this afternoon. Permissive hypertension continue telemetry Considering her current level of responsiveness and prognosis I do not see a reason to repeat carotid duplex, do a CTA. We will check echocardiogram Status: Acute (2) HTN (hypertension): Allow for permissive hypertension Status: Chronic (3) Coronary artery disease: Currently does not appear to be having any acute coronary events Status: Acute Qualifiers: Associated angina: with unspecified angina Coronary Disease-Associated Artery/Lesion type: [place] artery [place] vs. transplanted heart: [place] heart Qualified Code(s): I25.119 - Atherosclerotic heart disease of [place] coronary artery with unspecified angina pectoris (4) COPD (chronic obstructive pulmonary disease): No evidence of exacerbation DuoNeb as needed Status: Acute (5) Dementia: Status: Acute Additional A&P Information Possible UTI. White blood cell count not elevated. No evidence of fever. Continue Rocephin. Urine culture pending. Lovenox for DVT prophylaxis Allow natural Attestations Medical Necessity Statement*: Needs continued hospital stay secondary to severe CVA requiring supportive care, therapy evaluations, etc. Coding Level of Care Code Acute Sales Support Coordinator for Justin Oconnell Diagnoses Acute CVA (cerebrovascular accident) I63.9 HTN (hypertension) I10 Coronary artery disease I25.119 Associated angina: with unspecified angina Coronary Disease-Associated Artery/Lesion type: [place] artery [place] vs. transplanted heart: [place] heart COPD (chronic obstructive pulmonary disease) J44.9 Dementia F03.90
--- NOTE | 2021-08-16 11:17 | USCV_ITS ---
Sharp Karen Age: 85 Gender: F : 1935 Exam Date: 08/16/2021 13:30 Ordering Phys: Olivier Ramirez MD Technologist: AVA Exam Location: [facility] [place] Indication: recent CVA. F/U echo of August 2020. BP: 146 / 60 HR: 117 Rhythm: Sinus Technical Quality: Adequate MEASUREMENTS (Male / Female) Normal Values 2D ECHO LV Diastolic Diameter PLAX 3.7 cm 4.2 - 5.9 / 3.9 - 5.3 cm LV Systolic Diameter PLAX 2.3 cm IVS Diastolic Thickness 1.3 cm 0.6 - 1.0 / 0.6 - 0.9 cm IVS Systolic Thickness 1.4 cm LVPW Diastolic Thickness 1.2 cm 0.6 - 1.0 / 0.6 - 0.9 cm LVPW Systolic Thickness 1.9 cm LVOT Diameter 1.7 cm LV Ejection Fraction 2D Teich 69.5 % LV Ejection Fraction MOD 2C 67.7 % LV Ejection Fraction 2C AL 70.9 % LA Diameter 3.8 cm LA Width 3.0 cm LA Height 5.2 cm RA Width 3.2 cm RA Height 3.6 cm Aorta at Sinotubular Diameter 1.9 cm M-MODE Aortic Annulus Diameter 2.7 cm LA Ao Ratio MM 1.4 MV E Point Septal Separation 0.3 cm DOPPLER AV Peak Velocity 151.0 cm/s LVOT Peak Velocity 142.0 cm/s AV Area Cont Eq vti 2.8 cm squared AV Area Cont Eq pk 2.2 cm squared MV Peak Velocity 89.0 cm/s MV Area PHT 3.3 cm squared Mitral E to A Ratio 1.0 MV E' Velocity 50.0 cm/s Mitral E to MV E' Ratio 8.8 Mitral E to LV E' Lateral Ratio 8.4 Mitral E to LV E' Septal Ratio 9.4 TR Peak Velocity 277.0 cm/s TR Peak Gradient 30.7 mmHg TV Peak E Velocity 51.0 cm/s Right Atrial Pressure 5.0 mmHg Pulmonary Artery Systolic Pressu 35.7 mmHg PV Peak Velocity 105.0 cm/s RV Acceleration Time 0.1 s RV Ejection Time 0.4 s RV AcT/ET 0.3 FINDINGS Left Ventricle Normal left ventricular size. LV systolic function is normal with EF of 55-60%. No regional wall motion abnormalities. Normal diastolic filling pattern. Right Ventricle The right ventricle is normal in size and function. Right Atrium The right atrium is normal in size. Left Atrium The left atrium is normal in size. Mitral Valve Structurally normal mitral valve without significant stenosis or prolapse. There is no mitral regurgitation. Aortic Valve Structurally normal aortic valve without significant sclerosis or stenosis. There is no aortic regurgitation. Tricuspid Valve Structurally normal tricuspid valve without significant stenosis. Trace tricuspid regurgitation. Insufficient TR jet to calculate RVSP Pulmonic Valve Structurally normal pulmonic valve without significant stenosis. There is no pulmonic regurgitation. Pericardium Normal pericardium without effusion. Aorta Normal ascending aorta dimension. CONCLUSIONS LV systolic function is normal with EF of 55-60% Diastolic function is normal No significant valvular heart disease. Trace tricuspid regurgitation is seen Compared to prior echocardiogram from 09/08/2020, no significant changes are noted Cirilo Beltran MD (Electronically Signed) Final Date: 17 August 2021 11:09 S
[2021-08-16] MEDS: enoxaparin 40 mg/0.4 mL Syringe SUBCUT (13:02)
[2021-08-16 17:01] LABS: Anion Gap 18.8 (5-19); Blood Urea Nitrogen 15 mg/dL (8-23); Calcium 7.5 mg/dL (8.5-10.5); Carbon Dioxide 18 mmol/L (22-29); Chloride 115 mmol/L (98-107); Glucose 84 mg/dL (65-115); Osmolality Calculated 306 mOsm/kg (285-295); Potassium 3.8 mmol/L (3.5-5.1); Sodium 148 mmol/L (136-145)
[2021-08-16 21:25] LABS: Glucose Point of Care 75 mg/dL (70-110)
[2021-08-17] VITALS (10 sets, daily range): BP systolic 140–150; BP diastolic 56–77; PULSE 60–72; RESP 16–18; TEMP 36.8–37.3; O2SAT 96–99
[2021-08-17 03:46] LABS: Basophils % 0.6 %; Eosinophils # 0.1 10^3/uL (0.0-0.8); Eosinophils % 1.7 %; Hematocrit 34.4 % (37.0-47.0); Hemoglobin 10.7 g/dL (11.5-15.3); Lymphocytes # 1.5 10^3/uL (0.8-4.8); Mean Corpuscular HGB Conc 31.1 g/dL (30.0-36.0); Mean Corpuscular Hemoglobin 31.3 pg (28.0-34.0); Mean Corpuscular Volume 100.6 fl (81-99); Mean Platelet Volume 12.2 fL (7.4-10.4); Monocytes # 0.6 10^3/uL (0.2-0.9); Neutrophils # 4.55 10^3/uL (1.8-7.7); Neutrophils % 65.8 %; Nucleated Red Blood Cells % 0 %; Platelet Count 153 10^3/cmm (130-400); Red Blood Count 3.42 10^6/uL (4.1-5.3); Red Cell Distribution Width 14.3 % (12.1-15.1); White Blood Count 6.9 10^3/uL (4.0-10.0)
[2021-08-17] MEDS: cefTRIAXone 1,000 MG in sodium chloride 0.9% (plus) 50 ML 100 MG IV (04:01)
[2021-08-17] MEDS: sodium chloride 0.45% 1,000 ML 100 ML IV (04:01)
[2021-08-17 04:09] LABS: Blood Urea Nitrogen 13 mg/dL (8-23); Calcium 7.5 mg/dL (8.5-10.5); Carbon Dioxide 17 mmol/L (22-29); Chloride 112 mmol/L (98-107); Glucose 77 mg/dL (65-115); Osmolality Calculated 297 mOsm/kg (285-295); Sodium 144 mmol/L (136-145)
[2021-08-17 04:10] LABS: Anion Gap 18.6 (5-19); Potassium 3.6 mmol/L (3.5-5.1)
[2021-08-17] MEDS: clopidogrel 75 mg Tablet PO (08:58)
[2021-08-17] MEDS: aspirin 81 mg EC Tablet PO (08:58)
--- NOTE | 2021-08-17 09:49 | PM.PN ---
Subjective Subjective: Interval history: Karen is more alert this morning. It takes me a while but I finally get a verbal response out of her after significant prompting. Medications: Reviewed: Yes Vitals/I&O/Wt Last Vital Signs Temp 98.2 F 08/17/21 08:00 Pulse 68 08/17/21 08:00 Resp 16 08/17/21 08:00 BP 146/69 08/17/21 08:00 Pulse Ox 98 08/17/21 07:59 08/16/21 08/17/21 08/17/21 22:59 06:59 14:59 Intake Total 886.667 / 3419.342 0539 / 2567.417 470 / 470 Output Total 650 / 650 350 / 1000 Balance 236.667 / 867.417 700 / 1567.417 470 / 470 Physical Exam Narrative: EXAM NARRATIVE: General exam opens eyes, verbal response which is aphasic after prompting. She can follow instruction by moving her extremities on command with the exception of the left upper extremity. Oropharynx clear, dry mucous membranes Cardiovascular regular rate and rhythm, heart sounds distant Lungs clear Abdomen is soft. Bowel sounds noted Ramirez noted Extremities no cyanosis clubbing or edema Neurologic: Left hand in a fist, difficult to open up. Reduced movement noted on the left side. No gaze deviation. Unchanged from yesterday Urinary Catheter Management^: Ramirez: Cath Placed During This Visit: yes Reason for Continuing Indwelling Catheter: Assist Healing of Perineal & Sacral Wounds- Incontinent Patients Urinary Catheter Date of Insertion: 08/15/21 Urinary Catheter Time of Insertion: 03:37 Data : 08/17/21 03:05 08/17/21 03:05 Micro: Microbiology 08/15/21 03:35 Urine Culture - Preliminary Urine Catheterized Gram Negative Rods A&P Assessment and plan (1) Acute CVA (cerebrovascular accident): Has had slow improvement. Still with aphasia and left upper extremity paresis Therapy consultations appreciated Continue Plavix, aspirin Continue statin Reduce IV fluids. Speech reports she is able to initiate diet today. Continue permissive hypertension continue telemetry, no evidence of atrial fibrillation Carotid duplex, CTA not done, when considering overall performance and family's wishes. She has would not be a surgical candidate for carotid endarterectomy at this time Echo pending Status: Acute (2) HTN (hypertension): Allow for permissive hypertension Status: Chronic (3) Coronary artery disease: Currently does not appear to be having any acute coronary events Status: Acute Qualifiers: Coronary Disease-Associated Artery/Lesion type: [place] artery [place] vs. transplanted heart: [place] heart Associated angina: with unspecified angina Qualified Code(s): I25.119 - Atherosclerotic heart disease of [place] coronary artery with unspecified angina pectoris (4) COPD (chronic obstructive pulmonary disease): No evidence of exacerbation DuoNeb as needed Status: Acute (5) Dementia: Status: Acute Additional A&P Information Possible UTI. White blood cell count not elevated. No evidence of fever. Continue Rocephin. Urine culture pending. Growing gram-negative rods currently Lovenox for DVT prophylaxis Allow natural Attestations Medical Necessity Statement*: Needs continued hospitalization for therapy evaluation, initiation of diet. Still requiring IV fluids. If her intake is good could transition to home with home health and therapy in the next 1 to 2 days. Family does not wish for [place] [facility] [place] [facility]. Coding Level of Care Code Acute Cushion Maker Hand for Justin Oconnell Diagnoses Acute CVA (cerebrovascular accident) I63.9 HTN (hypertension) I10 Coronary artery disease I25.119 Coronary Disease-Associated Artery/Lesion type: [place] artery [place] vs. transplanted heart: [place] heart Associated angina: with unspecified angina COPD (chronic obstructive pulmonary disease) J44.9 Dementia F03.90
[2021-08-17] MEDS: enoxaparin 40 mg/0.4 mL Syringe SUBCUT (11:39)
[2021-08-17] MEDS: sodium chloride 0.45% 1,000 ML 75 ML IV (14:58)
--- NOTE | 2021-08-17 15:20 | PC.NURSE ---
Hermilo from [facility] called this nurse asking about patient and medical stability.
--- NOTE | 2021-08-17 18:24 | PC.NURSE ---
Bladder scanned patient at this time. 90 mls noted. Indwelling catheter removed at [address] Ramirez notified at this time. New orders received to continue to push po fluids, Iv fluids, and rescan bladder in 2 hours.
[2021-08-18] VITALS (10 sets, daily range): BP systolic 142–173; BP diastolic 66–79; PULSE 68–86; RESP 16–22; TEMP 36.4–37.2; O2SAT 94–99
[2021-08-18 03:20] LABS: Anion Gap 17.4 (5-19); Blood Urea Nitrogen 10 mg/dL (8-23); Calcium 7.7 mg/dL (8.5-10.5); Carbon Dioxide 20 mmol/L (22-29); Chloride 108 mmol/L (98-107); Glucose 100 mg/dL (65-115); Osmolality Calculated 293 mOsm/kg (285-295); Potassium 3.4 mmol/L (3.5-5.1); Sodium 142 mmol/L (136-145)
[2021-08-18] MEDS: sodium chloride 0.45% 1,000 ML 75 ML IV (03:45)
[2021-08-18] MEDS: cefTRIAXone 1,000 MG in sodium chloride 0.9% (plus) 50 ML 100 MG IV (04:15)
--- NOTE | 2021-08-18 08:10 | PM.PN ---
Subjective Subjective: Interval history: Karen tries to say a few words to me today. It is apparent she still has aphasia. Medications: Reviewed: Yes Vitals/I&O/Wt Last Vital Signs Temp 97.5 F L 08/18/21 08:00 Pulse 74 08/18/21 08:00 Resp 18 08/18/21 08:00 BP 173/72 08/18/21 08:00 Pulse Ox 99 08/18/21 08:00 08/17/21 08/18/21 08/18/21 22:59 06:59 14:59 Intake Total 100 / 1278.75 1188.75 / 2467.50 Balance 100 / 1278.75 1188.75 / 2467.50 Physical Exam Narrative: EXAM NARRATIVE: General exam opens eyes, verbal response which is aphasic after prompting. Still following instructions Oropharynx clear, dry mucous membranes Cardiovascular regular rate and rhythm, heart sounds distant Lungs clear Abdomen is soft. Bowel sounds noted Extremities no cyanosis clubbing or edema Neurologic: Left hand in a fist, difficult to open up. Reduced movement noted on the left side. No gaze deviation. Continues to remain unchanged. Verbal response is about the same as yesterday, slow and garbled Urinary Catheter Management^: Ramirez: Cath Placed During This Visit: yes, but has since been removed by the nurse Reason for Continuing Indwelling Catheter: Decision to DC Catheter Urinary Catheter Date of Insertion: 08/15/21 Urinary Catheter Time of Insertion: 03:37 Date Urinary Catheter Removed: 08/17/21 Time Urinary Catheter Discontinued: 11:30 Data : 08/17/21 03:05 08/18/21 02:24 Micro: Microbiology 08/15/21 03:35 Urine Culture - Final Urine Catheterized Klebsiella pneumoniae A&P Assessment and plan (1) Acute CVA (cerebrovascular accident): Has had slow improvement. Still with aphasia and left upper extremity paresis Therapy consultations appreciated Continue Plavix, aspirin Continue statin Discontinue fluids. Small dose of Lasix today Continue permissive hypertension continue telemetry, no evidence of atrial fibrillation Carotid duplex, CTA not done, when considering overall performance and family's wishes. She has would not be a surgical candidate for carotid endarterectomy at this time Echo demonstrates ejection fraction of 55 to 60%, normal diastolic function Discontinue fluids. If she can maintain hydration throughout today possible discharge tomorrow. Status: Acute (2) HTN (hypertension): Allow for permissive hypertension Status: Chronic (3) Coronary artery disease: Currently does not appear to be having any acute coronary events Status: Acute Qualifiers: Coronary Disease-Associated Artery/Lesion type: [place] artery [place] vs. transplanted heart: [place] heart Associated angina: with unspecified angina Qualified Code(s): I25.119 - Atherosclerotic heart disease of [place] coronary artery with unspecified angina pectoris (4) COPD (chronic obstructive pulmonary disease): No evidence of exacerbation DuoNeb as needed Status: Acute (5) Dementia: Status: Acute Additional A&P Information Possible UTI. White blood cell count not elevated. No evidence of fever. Continue Rocephin. Urine culture pending. Has grown Klebsiella, sensitive to ceftriaxone. Mild hypokalemia, supplemented Lovenox for DVT prophylaxis Allow natural Attestations Medical Necessity Statement*: Needs continued hospitalization for close monitoring following stroke. Plan to discontinue IV fluids today to see if she can maintain hydration. Possible discharge tomorrow if she can with home health and therapies Coding Level of Care Code Acute Railroad Carman for Justin Oconnell Diagnoses Acute CVA (cerebrovascular accident) I63.9 HTN (hypertension) I10 Coronary artery disease I25.119 Coronary Disease-Associated Artery/Lesion type: [place] artery [place] vs. transplanted heart: [place] heart Associated angina: with unspecified angina COPD (chronic obstructive pulmonary disease) J44.9 Dementia F03.90
[2021-08-18] MEDS: aspirin 81 mg EC Tablet PO (08:22)
[2021-08-18] MEDS: potassium chloride oral liq 20 mEq/15 mL UDC 40 MEQ PO (08:22)
[2021-08-18] MEDS: clopidogrel 75 mg Tablet PO (08:22)
--- NOTE | 2021-08-18 09:43 | XRR_ITS ---
PROCEDURE INFORMATION: Exam: XR Right Hip Exam date and time: 08/18/2021 9:43 AM Age: 85 years old Clinical indication: Hip pain; Right hip; Patient HX: AMS, unable to obtain history TECHNIQUE: Imaging protocol: XR Right hip. Views: 1 view hip with pelvis when performed. COMPARISON: MRI Lumbar Spine w/o [id number] 09/10/2014 1:57 PM FINDINGS: Bones/joints: Unremarkable. No acute fracture. Soft tissues: Unremarkable. XR/XR hip RT 1V wo/w pel [id number] IMPRESSION: No acute findings.
[2021-08-18] MEDS: FUROsemide 10 mg/mL SDV 2mL 20 MG IVP (10:34)
[2021-08-18] MEDS: pantoprazole DR 40 mg Tablet PO (10:34)
[2021-08-18] MEDS: enoxaparin 40 mg/0.4 mL Syringe SUBCUT (12:48)
--- NOTE | 2021-08-18 14:51 | PC.SOCIAL ---
IMM Update pg 2 of IMM updated and reviewed w/ patient. Copy provided.
[2021-08-19] VITALS (7 sets, daily range): BP systolic 118–165; BP diastolic 55–73; PULSE 70–86; RESP 14–20; TEMP 36.7–37.3; O2SAT 97–98
[2021-08-19] MEDS: cefTRIAXone 1,000 MG in sodium chloride 0.9% (plus) 50 ML 100 MG IV (04:57)
[2021-08-19] MEDS: aspirin 81 mg EC Tablet PO (08:41)
[2021-08-19] MEDS: pantoprazole DR 40 mg Tablet PO (08:41)
[2021-08-19] MEDS: clopidogrel 75 mg Tablet PO (08:42)
[2021-08-19] MEDS: potassium chloride oral liq 20 mEq/15 mL UDC 40 MEQ PO (08:49)
--- NOTE | 2021-08-19 11:35 | PM.DCS ---
Discharge Providers Date of Admission: 08/15/21 10:35 Date of Discharge: August 19, 2021 Attending Provider at Admission: Olivier Ramirez MD Attending Provider at Discharge: Olivier Ramirez MD Primary Care Provider: JUAN MANUEL Matute Diagnoses at Discharge Discharge Diagnosis (1) Acute CVA (cerebrovascular accident): Status: Acute (2) HTN (hypertension): Status: Chronic (3) Coronary artery disease: Status: Acute Qualifiers: Coronary Disease-Associated Artery/Lesion type: [place] artery [place] vs. transplanted heart: [place] heart Associated angina: with unspecified angina Qualified Code(s): I25.119 - Atherosclerotic heart disease of [place] coronary artery with unspecified angina pectoris (4) COPD (chronic obstructive pulmonary disease): Status: Acute (5) Dementia: Status: Acute Reason for Visit Reason for Visit: [facility] Hospital Course Hospital Course Karen is an 85-year-old white female presenting to the emergency department with change in mental status, occurring several weeks prior to admission but worse several days. They were having trouble feeding her. She was not able to ambulate. She had been pocketing some food. For the last 2 months she had had worsening memory deficits. Past medical history included COPD, dementia, hypertension. Admission CT demonstrated no acute changes. Previous carotid ultrasound in August 2020 demonstrated 50 to 69% narrowing bilaterally. MRI done on admission demonstrated diffuse restriction right parietal and temporal lobes consistent with acute infarct. She was in sinus rhythm. On admission she was not really responsive. Family requested allow natural . Hydration occurred, permissive hypertension. The following day she was somewhat more alert and medications were initiated. Therapy consultations were obtained. She was eventually able to tolerate a nectar thick diet, with pur?ed food. Urinary tract infection was also noted and she was treated in the hospital with IV antibiotics. Echocardiogram was obtained which demonstrated no obvious thrombus. She remained in sinus rhythm while in the hospital. Consideration was contemplated for repeat carotid duplex, but as this would not change her medical management with family's directive secondary to her significant dementia this was not obtained. During her hospital course she had some myoclonic jerking, left side, without generalization. Patient was still able to be responsive during this time. Keppra was added after discussion with family regarding risks and benefits. At day of discharge she was alert, had been taking p.o. the last 24 hours without obvious dehydration. Ramirez had been removed the day previous. I discussed with the family again that she may be best served going to a nursing facility but they adamantly wish to take her home. They realize that she is at high risk for pneumonia, skin breakdown, . They believe she will be more comfortable at home with them caring for her and arrangements were made for home health. Follow-up will be with her primary care provider initially. Physical Exam Narrative: EXAM NARRATIVE: General exam no distress, verbal after delayed Neurologic: Left hemiparesis. Neck supple Cardiovascular regular rate and rhythm Lungs clear Abdomen is soft Extremities no cyanosis clubbing or edema Urinary Catheter Management^: Ramirez: Cath Placed During This Visit: yes, but has since been removed by the nurse Reason for Continuing Indwelling Catheter: Not indwelling catheter Urinary Catheter Date of Insertion: 08/15/21 Urinary Catheter Time of Insertion: 03:37 Date Urinary Catheter Removed: 08/17/21 Time Urinary Catheter Discontinued: 11:30 Discharge Data Data Completed and Pending: Completed Studies During Hospitalization Category Date Time Status CT head wo con* 7 [id number] Urgent Cat Scan 08/14/21 22:30 Completed XR chest 1V [place] ble [id number] Urgent Exams 08/14/21 22:30 Completed XR hip RT 1V wo/w pel [id number] Routine Exams 08/18/21 09:43 Completed MR head wo/w con [id number] Urgent MRI 08/15/21 04:10 Completed CV. echo complete * [id number] Routine Ultrasound 08/16/21 11:17 Completed Vitals: Last Vital Signs Temp 99.1 F 08/19/21 08:00 Pulse 77 08/19/21 08:00 Resp 14 08/19/21 08:00 BP 150/55 08/19/21 08:00 Pulse Ox 97 08/19/21 08:00 Discharge Plan Discharge Patient Disposition: Home Condition: Stable Prescriptions: New aspirin 81 mg Tablet,Delayed Release (Dr/Ec) 81 mg PO DAILY Qty: 30 RF: 0 atorvastatin 40 mg Tablet 20 mg PO BEDTIME Qty: 30 RF: 0 cefdinir 300 mg capsule 300 mg PO Q12H 5 Days Qty: 10 RF: 0 clopidogrel 75 mg Tablet 75 mg PO DAILY Qty: 30 RF: 0 levetiracetam 500 mg Tablet 500 mg PO BID@0900,2100 Qty: 60 RF: 0 Continued (DME) blood pressure monitor [Blood Pressure Kit] Kit See Rx Instructions .ROUTE .MEDSUPPLY Qty: 1 RF: 0 diclofenac sodium [Voltaren] 1 % gel 2 g topical QID 30 Days Qty: 100 RF: 2 donepezil [Aricept] 5 mg tablet 5 mg PO DAILY Qty: 30 RF: 0 omeprazole magnesium [Prilosec OTC] 20 mg tablet,delayed release (DR/EC) 20 mg PO DAILY Qty: 1 RF: 0 albuterol sulfate [Ventolin HFA] 90 mcg/actuation HFA aerosol inhaler 2 puff INHALATION Q6H PRN (Reason: Shortness Of Breath) RF: 0 duloxetine 20 mg capsule,delayed release(DR/EC) 20 mg PO BID 30 Days Qty: 60 RF: 5 cholecalciferol (vitamin D3) [Vitamin D3] 25 mcg (1,000 unit) Tablet,Chewable 25 mcg PO DAILY@08 RF: 0 clopidogrel 75 mg tablet 75 mg PO DAILY RF: 0 Adult Multivitamin Gummies 200 mcg Tablet,Chewable 1 tab PO DAILY RF: 0 Discontinued calcium carbonate [Calcium 500] 500 mg calcium (1,250 mg) tablet,chewable 500 mg PO DAILY@08 RF: 0 omega-3 fatty acids 500 mg capsule 500 mg PO DAILY@08 RF: 0 coenzyme Q10 [Co Q-10] 100 mg capsule 100 mg PO DAILY RF: 0 loratadine [Claritin] 10 mg tablet 10 mg PO DAILY 30 Days Qty: 30 RF: 5 lisinopril 20 mg tablet 20 mg PO BID Qty: 60 RF: 6 aspirin [Adult Low Dose Aspirin] 81 mg tablet,delayed release (DR/EC) 81 mg PO BID RF: 0 Vitamin C 500 mg Tablet 500 mg PO DAILY RF: 0 Prevagen 1 cap PO DAILY RF: 0 Discharge Orders: Discharge Order (Routine); Ordered 08/19/21 Ordered By: Olivier Ramirez Other Ambulatory Orders: DME: Wheelchair (Order) Location: None Selected Ordered By: Olivier Ramirez Referrals: [facility] [Outside] Darcie Martinez [facility]TER-[facility] [Primary Care Provider] - 4-7 days (BMP, CBC on follow-up) Discharge Activity: Increase activity as tolerated Patient Instructions: Ischemic Stroke (DC), Opioid Safety Activity Restrictions/Additional Instructions: Home oxygen evaluation prior to discharge Pur?ed diet, nectar thick liquids Discharge Attestations Time Spent in Discharge Care*: greater than 30 min Status at Discharge: Cognitive status at discharge: cognitively intact, Behavioral status at discharge: cooperative, Quality Metrics Clinical Quality Measures During this hospital stay, did patient experience: Stroke Contraindication to Antithrombotic: Antithrombotic prescribed Contraindication to Anticoagulation: Other (not indicated) Contraindication to Statin: Statin prescribed Reason stroke education not provided: Stroke education provided to family/guardian Coding Level of Care Code Acute [facility] note Diagnoses Acute CVA (cerebrovascular accident) I63.9 HTN (hypertension) I10 Coronary artery disease I25.119 Coronary Disease-Associated Artery/Lesion type: [place] artery [place] vs. transplanted heart: [place] heart Associated angina: with unspecified angina COPD (chronic obstructive pulmonary disease) J44.9 Dementia F03.90
--- NOTE | 2021-08-19 15:08 | PC.NURSE ---
Patient IV removed at this time. Patient tolerated well. Patient is awake but is unable to communicate. Reviewed discharge with patient's son Manpreet. Manpreet verbalized understanding of follow up appointments and crushing medications and putting them in applesauce. Patient is on nectar thick liquids and has a ulcer on her bottom. Patient's son verbalized understanding of how to thicken the liquids and given medications. Patient will have home health as well. Patient assisted into wheel chair and pushed to private car. Assisted patient into private car
== END 2021-08-19 15:00 | disposition home health service (06) | DRG 65 ==
LOC: ER 08-15 13:25 → ER IP 08-15 15:20 → MEDSURG 08-15 17:00
PROVIDERS: Emergency Medicine; Admitting Provider Internal Medicine; Emergency Provider Family Medicine; PCP Nurse Practitioner; Visit Provider Internal Medicine
DX: I63.9 Cerebral infarction, unspecified (principal); N39.0 Urinary tract infection, site not specified; G81.94 Hemiplegia, unspecified affecting left nondominant side; I25.119 Atherosclerotic heart disease of native coronary artery with unspecified angina pectoris; R47.01 Aphasia; I10 Essential (primary) hypertension; F03.90 Unspecified dementia, unspecified severity, without behavioral disturbance, psychotic disturbance, mood disturbance, and anxiety; B96.1 Klebsiella pneumoniae [K. pneumoniae] as the cause of diseases classified elsewhere; G25.3 Myoclonus; G47.10 Hypersomnia, unspecified; G47.30 Sleep apnea, unspecified; M81.0 Age-related osteoporosis without current pathological fracture; J44.9 Chronic obstructive pulmonary disease, unspecified; E78.5 Hyperlipidemia, unspecified; Z66 Do not resuscitate; Z90.710 Acquired absence of both cervix and uterus; Z85.42 Personal history of malignant neoplasm of other parts of uterus
CPT/HCPCS: 36415; 36416; 51702; 51798; 70450; 70553; 71045; 73501; 80048; 80053; 80061; 81001; 82803; 82962; 83036; 83605; 83735; 84100; 84484; 85025; 86140; 87077; 87086; 87186; 92507; 92523; 92526; 92610; 93005; 93306; 96361; 96372; 96374; 97110; 97162; 97165; 97530; 97535; 99285; A9579; J0696; J1650; J1940; J1953; J2250; J2310; J7030

== ENCOUNTER 2021-08-20 21:18 | Inpatient (IN) | payer MEDICARE, SELFPAY ==
[2021-08-20 21:27] VITALS: BP 128/54; PULSE 82; RESP 24; TEMP 36.6; O2SAT 99
--- NOTE | 2021-08-20 21:32 | W.ED.AMS ---
HPI - Altered Mental Status General: Chief Complaint: Altered Mental Status Stated Complaint: AMS Time Seen by Provider: 08/20/21 21:28 History of Present Illness: HPI narrative: Ms. Sharp is an 85-year-old lady with recent hospitalization for UTI and stroke who presents to the emergency department due to altered mental status. Upon arrival the patient is nonverbal. No family at bedside. Unclear course of symptoms since discharge yesterday. No other history available and history is limited by altered mental status. Review of Systems General: Reports: ROS unobtainable due to mental status PFSH ED PFSH: Medical History Age related osteoporosis Angina pectoris COPD (chronic obstructive pulmonary disease) Coronary artery disease Dementia Dyslipidemia Generalized anxiety disorder HTN (hypertension) Hypersomnia with sleep apnea Memory change Nocturnal hypoxemia w/ O2 at 2 litters Surgical History History of hysterectomy for cancer 2004 uterus Family History Brother Cancer brain tumor Other Diabetes Hypertension Social History Second hand smoke exposure: No Smoking risk assessment/counseling performed?: No Alcohol intake: never Desire information about alcohol rehabilitation?: No Counseling given: No Desire information about substance/drug rehabilitation?: No Counseling given: No Adopted: No Lives independently: Yes Household members: family Housing: House Marital status: / Number of children: 4 Number of grandchildren: 11 Highest education level completed: Some College, No Degree service: No Current occupational status: retired History of recent travel: No Current gender identity: Female Leatha/Amish: Zoroastrianism Physical Exam Narrative: EXAM NARRATIVE: GENERAL/CONSTITUTIONAL -ill appearing. Eyes - PERRL, no conjunctival injection ENMT - Atraumatic external nose and ears. Dry mucous membranes NECK - supple. trachea midline CARDIOVASCULAR - regular rate and rhythm. Normal peripheral perfusion RESPIRATORY -coarse to auscultation bilaterally. Mild tachypnea ABDOMEN/GI - Nontender, Nondistended. No tenderness to percussion or evidence of peritonitis MSK - Extremities without obvious deformity or tenderness to palpation SKIN - Warm, Dry NEURO - alert but unable to assess orientation status as patient is nonverbal. 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 Does not appear to be having seizure-like episodes. Course ED course: - Patient was seen and evaluated by me at bedside - Patient placed on cardiac monitors, IV access obtained - Initial evaluation notable for exam as noted above - Labs notable for no leukocytosis, no other significant blood work abnormality to explain mental status - Imaging notable for likely pneumonia. Patient recently has IV antibiotic use and therefore broad-spectrum antibiotics ordered. - Upon serial reexamination after treatment the patient was similar. Continued no evidence of seizure activity - Discussed case with patient's son. I explained that patient would require IV antibiotics if pneumonia is to be treated. I also explained that this is a challenging situation and it is unclear whether the patient will have improvement or what that improvement would entail/look like. He expresses hopes of getting her well enough to move up to [place] to see family. Additionally, they planned to have home health come in though could not get a due to the holiday. He wishes for patient to be admitted for treatment. - Hospitalist service contacted and agreed to admit the patient. - Patient admitted without clinical deterioration or significant events. Vital Signs: Vital signs: Vital Signs Temperature 98 F 08/27/21 20:00 Pulse Rate 88 08/27/21 20:00 Respiratory Rate 18 08/27/21 20:00 Blood Pressure 181/66 08/27/21 20:00 Pulse Oximetry 92 08/27/21 20:00 MDM - Altered Mental Status Medical Records: Attestation: I reviewed the patient's medical records. Lab Data: Attestation: I reviewed the patient's lab results. Labs: Lab Results 08/20/21 08/20/21 08/20/21 21:34 21:34 21:34 WBC 8.4 10^3/uL 10^3/ uL (4.0-10.0) Corrected WBC RBC 3.55 10^6/uL L 10 ^6/uL (4.1-5.3) Hgb 10.8 g/dL L g/dL (11.5-15.3) Hct 33.4 % L % (37.0-47.0) MCV 94.1 fl fl (81-99) MCH 30.4 pg pg (28.0-34.0) MCHC 32.3 g/dL g/dL (30.0-36.0) RDW 14.3 % % (12.1-15.1) Plt Count 164 10^3/cmm 10^3 /cmm (130-400) MPV 12.0 fL H fL (7.4-10.4) Gran % Neut % (Auto) 72.3 % % Lymph % (Auto) 15.6 % % [place] % (Auto) 9.6 % % Eos % (Auto) 1.7 % % Baso % (Auto) 0.4 % % Neut # (Auto) 6.05 10^3/uL 10^3 /uL (1.8-7.7) Lymph # (Auto) 1.3 10^3/uL 10^3/ uL (0.8-4.8) [place] # (Auto) 0.8 10^3/uL 10^3/ uL (0.2-0.9) Eos # (Auto) 0.1 10^3/uL 10^3/ uL (0.0-0.8) Baso # (Auto) 0.0 10^3/uL 10^3/ uL (0.0-0.1) Absolute Gran (aut o) Nucleated RBC % (a uto) 0 % % Nucleated RBCs # 0.0 /100WBC /100W BC Specimen Type Sample Site ABG pH ABG pCO2 ABG pO2 ABG HCO3 ABG Base Excess Augusto Test Hematocrit O2 Delivery Device Atomic Physics Professor ID Sodium 144 mmol/L mmol/L (136-145) Potassium 3.7 mmol/L mmol/L (3.5-5.1) Chloride 107 mmol/L mmol/L (98-107) Carbon Dioxide 24 mmol/L mmol/L (22-29) Anion Gap 16.7 (5-19) BUN 12 mg/dL mg/dL (8-23) Creatinine 0.5 mg/dL mg/dL (0.5-0.9) GFR Calculation Not Reportable Glucose 96 mg/dL mg/dL (65-115) POC Glucose Calculated Osmolal ity 298 mOsm/kg H mOs m/kg (285-295) Lactic Acid Calcium 8.0 mg/dL L mg/dL (8.5-10.5) Magnesium Total Bilirubin 0.4 mg/dL mg/dL (0.15-1.2) AST 38 U/L H U/L (0-32) ALT 28 U/L U/L (0-33) Alkaline Phosphata se 40 IU/L IU/L (35-105) Troponin T Baselin e 139 ng/L H* ng/L (0-10) Troponin T 120 Min [place] Delta Troponin T Troponin T Hi Sens 6Hr Troponin T Hi Sens 6Hr Delta Total Protein 4.8 g/dL L g/dL (6.6-8.7) Albumin 2.8 g/dL L g/dL (3.5-5.2) Globulin 2.0 g/dL g/dL (1.3-4.6) Procalcitonin TSH 3.21 uIU/mL uIU/m L (0.27-4.20) 08/20/21 08/20/21 08/20/21 21:35 21:42 22:36 WBC Corrected WBC RBC Hgb Hct MCV MCH MCHC RDW Plt Count MPV Gran % Neut % (Auto) Lymph % (Auto) [place] % (Auto) Eos % (Auto) Baso % (Auto) Neut # (Auto) Lymph # (Auto) [place] # (Auto) Eos # (Auto) Baso # (Auto) Absolute Gran (aut o) Nucleated RBC % (a uto) Nucleated RBCs # Specimen Type Arterial Sample Site Radial, right ABG pH 7.47 H (7.35-7.45) ABG pCO2 35.8 mmHg mmHg (35-45) ABG pO2 74.5 mmHg L mmHg (80.0-100.0) ABG HCO3 26.1 mmol/L H mmo l/L (22-26) ABG Base Excess 2.5 mmol/L H mmol /L (-2.0-2.0) Augusto Test Pos Hematocrit 32.3 % L % (37-47) O2 Delivery Device Room air Atomic Physics Professor ID [id number] Sodium Potassium Chloride Carbon Dioxide Anion Gap BUN Creatinine GFR Calculation Glucose POC Glucose 101 mg/dL mg/dL (70-110) Calculated Osmolal ity Lactic Acid Calcium Magnesium Total Bilirubin AST ALT Alkaline Phosphata se Troponin T Baselin e Troponin T 120 Min [place] 138.4 ng/L H ng/L (0-10) Delta Troponin T -0.6 ABS# L ABS# (0-10) Troponin T Hi Sens 6Hr Troponin T Hi Sens 6Hr Delta Total Protein Albumin Globulin Procalcitonin TSH 08/20/21 08/21/21 08/21/21 22:52 04:10 04:10 WBC Cancelled Corrected WBC Cancelled RBC Cancelled Hgb Cancelled Hct Cancelled MCV Cancelled MCH Cancelled MCHC Cancelled RDW Cancelled Plt Count Cancelled MPV Cancelled Gran % Cancelled Neut % (Auto) Cancelled Lymph % (Auto) Cancelled [place] % (Auto) Cancelled Eos % (Auto) Cancelled Baso % (Auto) Cancelled Neut # (Auto) Cancelled Lymph # (Auto) Cancelled [place] # (Auto) Cancelled Eos # (Auto) Cancelled Baso # (Auto) Cancelled Absolute Gran (aut o) Cancelled Nucleated RBC % (a uto) Cancelled Nucleated RBCs # Cancelled Specimen Type Sample Site ABG pH ABG pCO2 ABG pO2 ABG HCO3 ABG Base Excess [place]o Test Hematocrit O2 Delivery Device Atomic Physics Professor ID Sodium Potassium Chloride Carbon Dioxide Anion Gap BUN Creatinine GFR Calculation Glucose POC Glucose Calculated Osmolal ity Lactic Acid 1.5 mmol/L mmol/L (0.5-2.2) Calcium Magnesium Total Bilirubin AST ALT Alkaline Phosphata se Troponin T Baselin e Troponin T 120 Min [place] Delta Troponin T Troponin T Hi Sens 6Hr 131.0 ng/L H ng/L (0-10) Troponin T Hi Sens 6Hr Delta -8.0 ng/L L ng/L (0-12) Total Protein Albumin Globulin Procalcitonin TSH 08/21/21 08/21/21 08/22/21 04:10 11:27 05:49 WBC 8.2 10^3/uL 10^3/ uL (4.0-10.0) Corrected WBC RBC 3.38 10^6/uL L 10 ^6/uL (4.1-5.3) Hgb 10.6 g/dL L g/dL (11.5-15.3) Hct 32.6 % L % (37.0-47.0) MCV 96.4 fl fl (81-99) MCH 31.4 pg pg (28.0-34.0) MCHC 32.5 g/dL g/dL (30.0-36.0) RDW 14.5 % % (12.1-15.1) Plt Count 165 10^3/cmm 10^3 /cmm (130-400) MPV 12.1 fL H fL (7.4-10.4) Gran % Neut % (Auto) 67.8 % % Lymph % (Auto) 16.6 % % [place] % (Auto) 12.9 % % Eos % (Auto) 1.9 % % Baso % (Auto) 0.4 % % Neut # (Auto) 5.57 10^3/uL 10^3 /uL (1.8-7.7) Lymph # (Auto) 1.4 10^3/uL 10^3/ uL (0.8-4.8) [place] # (Auto) 1.1 10^3/uL H 10^ 3/uL (0.2-0.9) Eos # (Auto) 0.2 10^3/uL 10^3/ uL (0.0-0.8) Baso # (Auto) 0.0 10^3/uL 10^3/ uL (0.0-0.1) Absolute Gran (aut o) Nucleated RBC % (a uto) 0 % % Nucleated RBCs # 0.0 /100WBC /100W BC Specimen Type Sample Site ABG pH ABG pCO2 ABG pO2 ABG HCO3 ABG Base Excess [place]o Test Hematocrit O2 Delivery Device Atomic Physics Professor ID Sodium 145 mmol/L mmol/L 149 mmol/L H mmol /L (136-145) (136-145) Potassium 3.8 mmol/L mmol/L 4.2 mmol/L mmol/L (3.5-5.1) (3.5-5.1) Chloride 108 mmol/L H mmol /L 115 mmol/L H mmol /L (98-107) (98-107) Carbon Dioxide 21 mmol/L L mmol/ L 21 mmol/L L mmol/ L (22-29) (22-29) Anion Gap 19.8 H 17.2 (5-19) (5-19) BUN 12 mg/dL mg/dL 9 mg/dL mg/dL (8-23) (8-23) Creatinine 0.6 mg/dL mg/dL 0.8 mg/dL mg/dL (0.5-0.9) (0.5-0.9) GFR Calculation Not Reportable Not Reportable Glucose 91 mg/dL mg/dL 113 mg/dL mg/dL (65-115) (65-115) POC Glucose Calculated Osmolal ity 299 mOsm/kg H mOs m/kg 307 mOsm/kg H mOs m/kg (285-295) (285-295) Lactic Acid Calcium 7.9 mg/dL L mg/dL 7.5 mg/dL L mg/dL (8.5-10.5) (8.5-10.5) Magnesium 1.6 mg/dL L mg/dL (1.7-2.3) Total Bilirubin 0.5 mg/dL mg/dL 0.4 mg/dL mg/dL (0.15-1.2) (0.15-1.2) AST 41 U/L H U/L 38 U/L H U/L (0-32) (0-32) ALT 30 U/L U/L 26 U/L U/L (0-33) (0-33) Alkaline Phosphata se 44 IU/L IU/L 41 IU/L IU/L (35-105) (35-105) Troponin T Baselin e Troponin T 120 Min [place] Delta Troponin T Troponin T Hi Sens 6Hr Troponin T Hi Sens 6Hr [place] Total Protein 4.8 g/dL L g/dL 4.5 g/dL L g/dL (6.6-8.7) (6.6-8.7) Albumin 2.8 g/dL L g/dL 2.8 g/dL L g/dL (3.5-5.2) (3.5-5.2) Globulin 2.0 g/dL g/dL 1.7 g/dL g/dL (1.3-4.6) (1.3-4.6) Procalcitonin 0.05 ng/mL ng/mL 0.06 ng/mL ng/mL (0-0.5) (0-0.5) TSH 08/22/21 08/22/21 05:49 05:49 WBC Corrected WBC RBC Hgb Hct MCV MCH MCHC RDW Plt Count MPV Gran % Neut % (Auto) Lymph % (Auto) [place] % (Auto) Eos % (Auto) Baso % (Auto) Neut # (Auto) Lymph # (Auto) [place] # (Auto) Eos # (Auto) Baso # (Auto) Absolute Gran (aut o) Nucleated RBC % (a uto) Nucleated RBCs # Specimen Type Sample Site ABG pH ABG pCO2 ABG pO2 ABG HCO3 ABG Base Excess [place] Test Hematocrit O2 Delivery Device Atomic Physics Professor ID Sodium Cancelled Potassium Cancelled Chloride Cancelled Carbon Dioxide Cancelled Anion Gap Cancelled BUN Cancelled Creatinine Cancelled GFR Calculation Cancelled Glucose Cancelled POC Glucose Calculated Osmolal ity Cancelled Lactic Acid Calcium Cancelled Magnesium Cancelled Total Bilirubin AST ALT Alkaline Phosphata se Troponin T Baselin e Troponin T 120 Min [place] Delta Troponin T Troponin T Hi Sens 6Hr Troponin T Hi Sens 6Hr Delta Total Protein Albumin Globulin Procalcitonin Cancelled TSH EKG Data^: EKG 1: Attestation: I personally reviewed and interpreted this EKG as follows: EKG interpretation date: 08/20/21 EKG interpretation time: 21:37 Interpretation: Twelve-lead EKG shows a regular rhythm at a rate of 78. SD interval 133, QRS duration 74, QTc 394. Normal axis. Interpretation: Sinus rhythm. Nonspecific ST segment abnormalities. EKG 2: Attestation: I personally reviewed and interpreted this EKG as follows: EKG interpretation date: 08/20/21 EKG interpretation time: 23:59 Interpretation: Twelve-lead EKG shows a regular rhythm at a rate of 74. SD interval 135. QRS duration 77. QTc 407. Normal axis. Interpretation: Sinus rhythm. Nonspecific ST segment abnormalities. Discharge Plan Discharge Admit Provider: Jane Rivera Coding Level of Care Code ED Wildlife Conservation Officer for g Anish
[2021-08-20 21:38] LABS: Glucose Point of Care 101 mg/dL (70-110)
--- NOTE | 2021-08-20 21:42 | CTR_ITS ---
PROCEDURE INFORMATION: Exam: CT Head Without Contrast Exam date and time: 08/20/2021 9:42 PM Age: 85 years old Clinical indication: Other: PT unable to speak, AMS TECHNIQUE: Imaging protocol: Computed tomography of the head without contrast. Radiation optimization: All CT scans at this facility use at least one of these dose optimization techniques: automated exposure control; mA and/or kV adjustment per patient size (includes targeted exams where dose is matched to clinical indication); or iterative reconstruction. COMPARISON: MR head wo/w con [id number] 08/15/2021 6:28 AM RADIATION DOSE METRICS: Total DLP (mGy-cm): 1122.07 FINDINGS: Brain: There is diffuse cerebral atrophy present, consistent with this patient's age. Periventricular and subcortical white matter low densities are present which at this age likely represent microvascular ischemic change. No evidence for large acute ischemic infarction. Please note acute ischemia can be occult by head CT. Benign globus pallidus calcifications are present. Cerebral ventricles: No ventriculomegaly. Paranasal sinuses: Visualized sinuses are unremarkable. No fluid levels. Mastoid air cells: Visualized mastoid air cells are well aerated. Vasculature: Calcified plaque is present within the carotid siphons. Bones/joints: Unremarkable. No acute fracture. Soft tissues: Unremarkable. CT/CT head wo con* [id number] IMPRESSION: There are senescent changes of the brain as described above. No evidence for large acute ischemic infarction or acute intracranial injury.
--- NOTE | 2021-08-20 21:42 | XRR_ITS ---
PROCEDURE INFORMATION: Exam: XR Chest Exam date and time: 08/20/2021 9:42 PM Age: 85 years old Clinical indication: Other: AMS TECHNIQUE: Imaging protocol: XR of the chest. Views: 1 view. COMPARISON: CR (CHEST, ) 08/14/2021 10:36 PM FINDINGS: Lungs: There are hazy opacities at the left lung base. Pleural spaces: The left costophrenic angle is obscured and a pleural effusion cannot be excluded. Heart/Mediastinum: Unremarkable. No cardiomegaly. Vasculature: There is calcified plaque in the aortic knob, similar to the prior study. Bones/joints: Unremarkable. XR/XR chest 1V portable [id number] IMPRESSION: Hazy opacity at the left lung base raises concern for pneumonia.
--- NOTE | 2021-08-20 21:42 | ECG_ITS ---
[facility] Test Date: 2021-08-20 Pat Name: Karen Sharp Department: Room: Gender: Female Nursing Techn: : 1935 Requested By: Devin Hutchison Order Number: [id number] Oralia MD: Sabina Doss M.D. Measurements Intervals [place] Rate: 78 P: 76 TN: 133 QRS: 67 QRSD: 74 T: 95 QT: 361 QTc: 413 Interpretive Statements SINUS RHYTHM NONSPECIFIC T-WAVE ABNORMALITY Compared to ECG 08/15/2021 01:03:40 No significant changes Electronically Signed On 08-22-2021 15:37:14 SHANK STAPLER by Sabina Doss M.D. [email or web address]
[2021-08-20 21:43] VITALS: BP 128/44; PULSE 75; RESP 24; O2SAT 100
[2021-08-20 21:55] LABS: Basophils % 0.4 %; Eosinophils # 0.1 10^3/uL (0.0-0.8); Eosinophils % 1.7 %; Hematocrit 33.4 % (37.0-47.0); Hemoglobin 10.8 g/dL (11.5-15.3); Lymphocytes # 1.3 10^3/uL (0.8-4.8); Lymphocytes % 15.6 %; Mean Corpuscular HGB Conc 32.3 g/dL (30.0-36.0); Mean Corpuscular Hemoglobin 30.4 pg (28.0-34.0); Mean Corpuscular Volume 94.1 fl (81-99); Monocytes # 0.8 10^3/uL (0.2-0.9); Monocytes % 9.6 %; Neutrophils # 6.05 10^3/uL (1.8-7.7); Neutrophils % 72.3 %; Nucleated Red Blood Cells % 0 %; Platelet Count 164 10^3/cmm (130-400); Red Blood Count 3.55 10^6/uL (4.1-5.3); Red Cell Distribution Width 14.3 % (12.1-15.1); White Blood Count 8.4 10^3/uL (4.0-10.0)
[2021-08-20 22:22] LABS: ABG PCO2 35.8 mmHg (35-45); ABG PH Result 7.47 (7.35-7.45); Arterial Blood Gas Hematocrit 32.3 % (37-47); Base Excess ABG 2.5 mmol/L (-2.0-2.0); Blood Gas Allen Test Pos; Blood Gas Sample Site Radial, right; Blood Gas Sample Type Arterial; HCO3 ABG 26.1 mmol/L (22-26); Oxygen Device ROOM AIR; PO2 ABG 74.5 mmHg (80.0-100.0)
[2021-08-20 22:23] LABS: Troponin(5th) Baseline 139 ng/L (0-10)
[2021-08-20 22:24] LABS: Slide Review Slide Review Perform
[2021-08-20 22:29] LABS: Alanine Aminotransferase 28 U/L (0-33); Albumin Level 2.8 g/dL (3.5-5.2); Alkaline Phosphatase 40 IU/L (35-105); Anion Gap 16.7 (5-19); Aspartate Amino Transferase 38 U/L (0-32); Blood Urea Nitrogen 12 mg/dL (8-23); Carbon Dioxide 24 mmol/L (22-29); Chloride 107 mmol/L (98-107); Glucose 96 mg/dL (65-115); Osmolality Calculated 298 mOsm/kg (285-295); Potassium 3.7 mmol/L (3.5-5.1); Sodium 144 mmol/L (136-145); Thyroid Stimulating Hormone 3.21 uIU/mL (0.27-4.20); Total Bilirubin 0.4 mg/dL (0.15-1.2); Total Protein 4.8 g/dL (6.6-8.7)
[2021-08-20] MEDS: piperacillin-tazobactam 4.5 GM in sodium chloride 0.9% (plus) 50 ML IV (23:21)
[2021-08-20 23:25] VITALS: BP 139/35; PULSE 79; RESP 26; O2SAT 100
[2021-08-20 23:35] LABS: Lactic Sepsis W/Reflex 1.5 mmol/L (0.5-2.2)
--- NOTE | 2021-08-20 23:42 | ECG_ITS ---
[facility] Test Date: 2021-08-20 Pat Name: Karen Sharp Department: Room: Gender: Female Senior Enlisted Advisor: : 1935 Requested By: Devin Hutchison Order Number: [id number] Reading MD: Sabina Doss M.D. Measurements Intervals [place] Rate: 74 P: 75 ND: 135 QRS: 68 QRSD: 77 T: 92 QT: 380 QTc: 422 Interpretive Statements SINUS RHYTHM NONSPECIFIC T-WAVE ABNORMALITY Compared to ECG 08/20/2021 21:33:32 No significant changes Electronically Signed On 08-22-2021 16:59:30 COOK CHILL TECHNICIAN by Sabina Doss M.D. [id number]
--- NOTE | 2021-08-20 23:46 | P.HP_ITS ---
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 HPI was not obtained as patient was non-verbal and no family at bedside. Work up in ER showed a WBC of 8.4, hemoglobin 10.8, hematocrit 33.4 and a platelet count of 164. PH of 7.47, pCO2 of 35.8, PO2 of 74.5 and bicarb of 26.1. Sodium 144, potassium 3.7, chloride 107, bicarb 24, BUN 12 and creatinine of 0.5. AST of 38, ALT of 28 and alkaline phosphatase of 40. Troponin T baseline of 139 with a repeat of 138.4 at 2hr. TSH of 3.21.Head CT without contrast did not show any evidence of large acute ischemic infarction or intracranial pathology.Chest x-ray showed hazy opacity in left lung base concerning for pneumonia. ER meds: Vancomycin 2g IV x 1 Zosyn 4.5 gm IV x1 Review of Systems General: Reports: ROS unobtainable due to medical condition and ROS unobtainable due to mental status Medications/Allergies Home Medications Medication Instructions Recorded Confirmed Last Taken Type albuterol sulfate 90 mcg/actuation 2 puff INHALATION Q6H PRN 09/10/19 08/15/21 Unknown History aerosol inhaler blood pressure monitor #1 each 10/31/19 08/15/21 Unknown Rx cholecalciferol (vitamin D3) 25 mcg PO DAILY@08 09/07/20 08/15/21 09/06/20 History [Vitamin D3] diclofenac sodium 1 % topical gel 2 g TOPICAL QID 30 Days #100 g 01/11/21 08/15/21 Unknown Rx duloxetine 20 mg capsule,delayed 20 mg PO BID 30 Days #60 cap 03/23/21 08/15/21 Unknown Rx release donepezil 5 mg tablet 5 mg PO DAILY #30 tab 07/13/21 08/15/21 Unknown Rx omeprazole magnesium 20 mg 20 mg PO DAILY #1 tab 07/13/21 08/15/21 Unknown Rx tablet,delayed release Adult Multivitamin Gummies 1 tab PO DAILY 08/15/21 08/15/21 Unknown History clopidogrel 75 mg PO DAILY 08/15/21 08/15/21 Unknown History aspirin 81 mg PO DAILY #30 tab 08/19/21 Unknown Rx atorvastatin 20 mg PO BEDTIME #30 tab 08/19/21 Unknown Rx cefdinir 300 mg PO Q12H 5 Days #10 cap 08/19/21 Unknown Rx clopidogrel 75 mg PO DAILY #30 tab 08/19/21 Unknown Rx levetiracetam 500 mg PO BID@0900,2100 #60 tab 08/19/21 Unknown Rx Allergies Allergy/AdvReac Type Severity Reaction Status Date / Time adhesive tape Allergy ALGY-Rash Verified 07/20/21 11:11 PFSH Acute PFSH: Medical History Age related osteoporosis Angina pectoris COPD (chronic obstructive pulmonary disease) Coronary artery disease Dementia Dyslipidemia Generalized anxiety disorder HTN (hypertension) Hypersomnia with sleep apnea Memory change Nocturnal hypoxemia w/ O2 at 2 litters Surgical History History of hysterectomy for cancer 2004 uterus Family History Brother Cancer brain tumor Other Diabetes Hypertension Social History Second hand smoke exposure: No Smoking risk assessment/counseling performed?: No Alcohol intake: never Desire information about alcohol rehabilitation?: No Counseling given: No Desire information about substance/drug rehabilitation?: No Counseling given: No Adopted: No Lives independently: Yes Household members: family Housing: House Marital status: / Number of children: 4 Number of grandchildren: 11 Highest education level completed: Some College, No Degree service: No Current occupational status: retired History of recent travel: No Current gender identity: Female Leatha/Confucianist: Zoroastrian Vitals/I&O/Wt Last Vital Signs Temp 97.9 F 08/20/21 21:27 Pulse 58 L 08/21/21 03:45 Resp 24 H 08/21/21 03:45 BP 133/42 08/21/21 00:55 Pulse Ox 95 08/21/21 03:45 08/20/21 08/20/2121 14:59 22:59 06:59 Intake Total 550 / 550 Balance 550 / 550 Weight last 48 hrs Weight 65.771 kg Physical Exam Narrative: EXAM NARRATIVE: General; Alert, Confused HEENT; Grossly unremarkable CVS; RRR Chest; Decreased at bases ABD: Soft, NT,ND Skin: Sacral decubitus ulcer stage 2 Ext : No edema Data : 08/20/21 21:34 08/21/21 04:10 Micro: Microbiology 08/20/21 22:52 Blood Culture - Preliminary Blood SPECIMEN COLLECTED 08/20/21 22:52 Blood Culture - Preliminary Blood SPECIMEN COLLECTED A&P Additional A&P Information Altered Mental status with underlying dementia Etiology multifactorial Posible infection Recent K.Pneumonia NPO for ST eval Aspiration precautions Fall precautions NS at 75cc/hr Suspected LLL pneumonia Possible aspiration Continue zosyn 3.375g IV q6hr Follow upon culture Procalcitonin in am Elevated Troponin - hx fo CAD Trend not consistent with ACS Asa/plavix/statin as ordered Limited ECHO ordered Monitor on tele F/u on 6hr troponin Recent R. CVA Repeat head CT - no acute abnormality Continue aspirin/ plavix/ statin 09/16 ECHO - pEF, Grade 1 DD, no sig valvular disease PT consultation Carotid Artery Stenosis R &L ICA - 50-69% stenosis Medications as noted above. Additional Medical Problems Hypertension Nocturnal hypoxemia on 2L Dyslipidemia COPD Anxiety/ Depression DVT ppx Heparin 5000 units Q8hr Attestations Medical Necessity Statement*: anticipate less than 2 midnights stay in hospital for evaluation treatment Time Spent in Patient Care: Greater than 35 minutes (>than 50% of time spent in counselling and/or direct pt care on unit) . Coding Level of Care Code Acute Geriatric Assistant for Justin Oconnell
[2021-08-21] VITALS (8 sets, daily range): BP systolic 110–146; BP diastolic 42–75; PULSE 58–78; RESP 14–24; TEMP 36.6–37.2; O2SAT 94–100; BMI 26.5
[2021-08-21 00:37] LABS: Troponin 5 2HR 138.4 ng/L (0-10); Troponin 5 2HR Delta -0.6 ABS# (0-10)
--- NOTE | 2021-08-21 03:42 | ECG_ITS ---
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 Measurements Intervals [place] Rate: 63 P: 57 [place]: 129 QRS: 44 QRSD: 73 T: 86 QT: 395 QTc: 405 Interpretive Statements SINUS RHYTHM NONSPECIFIC T-WAVE ABNORMALITY Compared to ECG 08/20/2021 23:58:40 No significant changes Electronically Signed On 08-22-2021 16:59:06 CLEAN OUT DRILLER by Sabina Doss M.D. [id number]
[2021-08-21] MEDS: sodium chloride 0.9% 1,000 ML 75 ML IV (04:04)
--- NOTE | 2021-08-21 04:47 | PC.PHAR ---
Zosyn is dosed at 3.375gm IVPB every 8 hours on basis of calculated creatinine clearance of 60.8. Each dose is to be infused over 4 hours per extended infusion protocol.
[2021-08-21 05:25] LABS: Alanine Aminotransferase 30 U/L (0-33); Albumin Level 2.8 g/dL (3.5-5.2); Alkaline Phosphatase 44 IU/L (35-105); Anion Gap 19.8 (5-19); Aspartate Amino Transferase 41 U/L (0-32); Blood Urea Nitrogen 12 mg/dL (8-23); Calcium 7.9 mg/dL (8.5-10.5); Carbon Dioxide 21 mmol/L (22-29); Chloride 108 mmol/L (98-107); Glucose 91 mg/dL (65-115); Osmolality Calculated 299 mOsm/kg (285-295); Potassium 3.8 mmol/L (3.5-5.1); Sodium 145 mmol/L (136-145); Total Bilirubin 0.5 mg/dL (0.15-1.2); Total Protein 4.8 g/dL (6.6-8.7)
[2021-08-21 05:29] LABS: Procalcitonin 0.05 ng/mL (0-0.5)
[2021-08-21] MEDS: piperacillin-tazobactam 3.375 GM in sodium chloride 0.9% (plus) 50 ML IV ×3 (06:41→22:31)
[2021-08-21] MEDS: heparin 5,000 unit/mL INJ 1 mL 5000 UNIT SUBCUT ×2 (08:01→14:52)
[2021-08-21 11:53] LABS: Basophils % 0.4 %; Eosinophils # 0.2 10^3/uL (0.0-0.8); Eosinophils % 1.9 %; Hematocrit 32.6 % (37.0-47.0); Hemoglobin 10.6 g/dL (11.5-15.3); Lymphocytes # 1.4 10^3/uL (0.8-4.8); Lymphocytes % 16.6 %; Mean Corpuscular HGB Conc 32.5 g/dL (30.0-36.0); Mean Corpuscular Hemoglobin 31.4 pg (28.0-34.0); Mean Corpuscular Volume 96.4 fl (81-99); Mean Platelet Volume 12.1 fL (7.4-10.4); Monocytes # 1.1 10^3/uL (0.2-0.9); Monocytes % 12.9 %; Neutrophils # 5.57 10^3/uL (1.8-7.7); Neutrophils % 67.8 %; Nucleated Red Blood Cells % 0 %; Platelet Count 165 10^3/cmm (130-400); Red Blood Count 3.38 10^6/uL (4.1-5.3); Red Cell Distribution Width 14.5 % (12.1-15.1); White Blood Count 8.2 10^3/uL (4.0-10.0)
[2021-08-21] MEDS: dextrose 5%-sod chloride 0.9% 1,000 ML 75 ML IV (11:53)
--- NOTE | 2021-08-21 14:32 | PC.PHAR ---
SPOKE WITH PATIENT'S SON, DIANN [phone]. SON STATES HE CONTINUED THE PLAVIX AFTER THE LAST HOSPITAL STAY BUT STATES HE FEELS THE PATIENT NEEDS TO BE TAKEN OFF OF MEDICATION DUE TO DROWSINESS. SON ALSO STATES THAT THE PATIENT IS STILL TAKING DULOXETINE 20MG BID -LAST FILLED ON 06/22/21 X 30 DAYS. SON STATES HE IS UNSURE IF PATIENT IS STILL TAKING DONEPEZIL 20MG BID. SON STATES THE PT NEVER STARTED TAKING ANY OF THE MEDICATIONS DR. WELLS PRESCRIBED ON 08/19/21 DUE TO PHARMACY HOURS. PT DID NOT START TAKING ATORVASTATIN 20MG AT BEDTIME, CEFDINIR 300MG Q12H, KEPPRA 500MG BID.
--- NOTE | 2021-08-21 16:08 | PM.PN ---
Subjective Subjective: Interval history: Seen this morning. Patient unable to provide a history. She has a right-sided gaze. Altered mental status. I did discuss with her RN who states she took care of her at the last hospital admission. Patient has garbled speech at baseline and this is her baseline. Patient does not talk. No acute events overnight reported. Vitals/I&O/Wt Last Vital Signs Temp 98.9 F 08/21/21 11:41 Pulse 78 08/21/21 11:41 Resp 14 08/21/21 11:41 BP 110/61 08/21/21 11:41 Pulse Ox 94 08/21/21 11:41 08/21/21 08/21/21 08/21/21 06:59 14:59 22:59 Intake Total 550 / 550 637.5 / 637.5 Output Total 525 / 525 Balance 637.5 / 637.5 Weight last 48 hrs Weight 65.816 kg Weight 65.771 kg Physical Exam Narrative: EXAM NARRATIVE: General; Alert, Confused, has a right-sided gaze HEENT; Grossly unremarkable, EOMI, right-sided gaze present, right pupil pinpoint, left pupil okay. Both pupils react to light. CVS; RRR, normal S1-S2 Chest; Decreased at bases, no gross wheezes or rhonchi cruciated. ABD: Soft, NT,ND, bowel sounds positive Skin: Sacral decubitus ulcer stage 3 present on admission Ext : No edema Data : 08/21/21 11:27 08/21/21 04:10 Micro: Microbiology 08/20/21 22:52 Blood Culture - Preliminary Blood SPECIMEN COLLECTED 08/20/21 22:52 Blood Culture - Preliminary Blood SPECIMEN COLLECTED A&P Additional A&P Information Altered Mental status with underlying dementia Etiology multifactorial Possible infection Recent K.Pneumonia NPO for ST eval Aspiration precautions Fall precautions D5 NS at 75cc/hr Suspected LLL pneumonia Possible aspiration Continue zosyn 3.375g IV q6hr Follow upon culture Procalcitonin pending Elevated Troponin - hx fo CAD Trend not consistent with ACS Asa/plavix/statin as ordered Limited ECHO ordered Monitor on tele F/u on 6hr troponin Recent R. CVA Repeat head CT - no acute abnormality Continue aspirin/ plavix/ statin 09/16 ECHO - pEF, Grade 1 DD, no sig valvular disease PT consultation Carotid Artery Stenosis R &L ICA - 50-69% stenosis Medications as noted above. Additional Medical Problems Hypertension Nocturnal hypoxemia on 2L Dyslipidemia COPD Anxiety/ Depression DVT ppx Heparin 5000 units Q8hr Attestations Medical Necessity Statement*: Greater than 48-hour hospital stay for treatment of pneumonia. Coding Level of Care Code Acute Administrative Services Director for Justin Oconnell
--- NOTE | 2021-08-21 21:12 | PC.NURSE ---
This nurse tried to wake up patient, patient moves right arm and pushes my stethoscope off her chest. This nurse explained to patient that she had nightly meds to take but patient won't open her eyes. Patient is not awake enough to take these meds. This is nothing new compared from the previous night.
[2021-08-22] VITALS (9 sets, daily range): BP systolic 160–190; BP diastolic 56–82; PULSE 76–86; RESP 15–18; TEMP 36.6–37.4; O2SAT 94–98
[2021-08-22] MEDS: heparin 5,000 unit/mL INJ 1 mL 5000 UNIT SUBCUT ×3 (00:55→14:13)
[2021-08-22] MEDS: dextrose 5%-sod chloride 0.9% 1,000 ML 75 ML IV ×2 (00:56→14:13)
[2021-08-22] MEDS: piperacillin-tazobactam 3.375 GM in sodium chloride 0.9% (plus) 50 ML IV ×2 (06:23→14:13)
[2021-08-22 06:58] LABS: Alanine Aminotransferase 26 U/L (0-33); Albumin Level 2.8 g/dL (3.5-5.2); Alkaline Phosphatase 41 IU/L (35-105); Blood Urea Nitrogen 9 mg/dL (8-23); Calcium 7.5 mg/dL (8.5-10.5); Carbon Dioxide 21 mmol/L (22-29); Chloride 115 mmol/L (98-107); Globulin 1.7 g/dL (1.3-4.6); Glucose 113 mg/dL (65-115); Osmolality Calculated 307 mOsm/kg (285-295); Sodium 149 mmol/L (136-145); Total Bilirubin 0.4 mg/dL (0.15-1.2); Total Protein 4.5 g/dL (6.6-8.7)
[2021-08-22 06:59] LABS: Anion Gap 17.2 (5-19); Aspartate Amino Transferase 38 U/L (0-32); Potassium 4.2 mmol/L (3.5-5.1)
[2021-08-22 07:24] LABS: Magnesium 1.6 mg/dL (1.7-2.3); Procalcitonin 0.06 ng/mL (0-0.5)
--- NOTE | 2021-08-22 10:41 | PC.CHAP ---
Pastoral Care Encounter/Spiritual Assessment Type of Contact [] Declined cover seamer visit [] Patient/Family/Request visit [] Outpatient visit [] Follow-up visit [] Physician referral [] Code/Alert [] Routine visit [] Staff referral [] Actively dying [] Patient sleeping [] Family support [] [] Out of room [] Palliative care [] [] Receiving care in room [] Pre-surgical visit [] Trauma [] Long length of stay [] ICU visit [] Other: Relational/Emotional Strength [] Patient feels connected with others/family/visitors/staff [] Distress [] Loneliness/isolation [] Abandonment Spirituality of Patient [x] Person of Leatha [x] Attends Cheondoism of their Leatha [] Believes in Prayer [] Reads Bible or Scientology materials [] There are Spiritual issues to be addressed Hose Sprayer Interventions [x] Prayer [x] Active listening [x] Non-anxious presence [x] Spiritual/emotional support [] Crisis/trauma care [] Spiritual counseling [] Bereavement support [] Provided bereavement packet [] Provided Bible/devotional materials [] Provided toy/stuffed animal, coloring book to patient or family member [] Provided Communion [] Anointing/[place] [] Salvation x[x] Completed spiritual assessment [] Other: Impact on Illness or Injury [] Angry [] Fearful [] Anxious [] Often cries [] Exhaustion [] Unable to work [] Unable to attend nondenominational [] Unable to walk/stand [] Unable to read [] Unable to drive [] Unable to eat/drink [] Unable to sleep [] Unable to be with family [] Patient intubated [] Other: Summary Time spent with patient 15 min x
--- NOTE | 2021-08-22 16:47 | PM.PN ---
Subjective Subjective: Interval history: The patient is awake but a verbal. Follows instructions. No acute distress. Denies complaints. Medications: Reviewed: Yes Medication Review Details: Generic Name Dose Route Start Last Admin Trade Name Cristopher PRRafy Reason Stop Dose Admin Aspirin 81 mg 08/21/21 09:00 08/22/21 07:26 Aspirin 81 Mg Ec Tablet PO Not Given DAILY PAULINO Atorvastatin Calci um 20 mg 08/21/21 21:00 08/21/21 21:12 Atorvastatin 40 Mg Tablet PO Not Given BEDTIME PAULINO Clopidogrel Bisulf ate 75 mg 08/21/21 09:00 08/22/21 07:26 Clopidogrel 75 M g Tablet PO Not Given DAILY PAULINO Donepezil HCl 5 mg 08/21/21 09:00 08/22/21 07:26 Donepezil 5 Mg T ablet PO Not Given DAILY PAULINO Heparin Sodium (Po rcine) 5,000 unit 08/21/21 08:00 08/22/21 14:13 Heparin 5,000 Un it/Ml Inj 1 Ml SUBCUT 5,000 unit Q8H PAULINO Administration Piperacillin Sod/T azobactam 50 mls @ 12.5 mls /hr 08/21/21 07:00 08/22/21 14:13 Sod 3.375 gm/ So dium Chloride IV 12.5 mls/hr Q8H PAULINO Administration Protocol As Directed Dextrose/Sodium Ch loride 1,000 mls @ 75 ml s/hr 08/21/21 11:45 08/22/21 14:13 Dextrose 5%-Sod Chloride 0.9% IV 75 mls/hr .[id number] PAULINO Administration Pantoprazole Sodiu m 40 mg 08/21/21 09:00 08/22/21 07:[address] 40 Mg Tablet PO Not Given DAILY PAULINO Vitals/I&O/Wt Last Vital Signs Temp 98.1 F 08/22/21 15:19 Pulse 77 08/22/21 15:19 Resp 16 08/22/21 15:19 BP 161/56 08/22/21 15:19 Pulse Ox 96 08/22/21 15:17 08/22/21 08/22/21 08/22/21 06:59 14:59 22:59 Intake Total 1028.75 / 2403.25 1096.25 / 1096.25 Output Total 750 / 750 Balance 278.75 / 1653.25 1096.25 / 1096.25 Weight last 48 hrs Weight 64.592 kg Weight 65.816 kg Weight 65.771 kg Physical Exam Narrative: EXAM NARRATIVE: Awake. AVerbal. No acute distress. Follows instructions Skin is warm and dry. Dry mucous membranes. Neck supple. No JVD Lungs clear bilaterally. No respiratory distress Heart S1, S2, regular Abdomen is soft, nontender, bowel sounds are present Extremities no calf tenderness, no cyanosis. Neuro. Aphasia is present. She was able to wiggle her toes symmetrically bilaterally. Left upper extremity is present. Data : 08/21/21 11:27 08/22/21 05:49 Other Labs: Laboratory Results WBC 8.2 10^3/uL (4.0-10.0) 08/21/21 11:27 Corrected WBC Cancelled 08/21/21 04:10 RBC 3.38 10^6/uL (4.1-5.3) L 08/21/21 11: Hgb 10.6 g/dL (11.5-15.3) L 08/21/21 11:27 Hct 32.6 % (37.0-47.0) L 08/21/21 11: MCV 96.4 fl (81-99) 08/21/21 11: MCH 31.4 pg (28.0-34.0) 08/21/21 11: MCHC 32.5 g/dL (30.0-36.0) 08/21/21 11: RDW 14.5 % (12.1-15.1) 08/21/21 11: Plt Count 165 10^3/cmm (130-400) 08/21/21 11: MPV 12.1 fL (7.4-10.4) H 08/21/21 11:27 Gran % Cancelled 08/21/21 04:10 Neut % (Auto) 67.8 % 08/21/21 11: Lymph % (Auto) 16.6 % 08/21/21 11: [place] % (Auto) 12.9 % 08/21/21 11: Eos % (Auto) 1.9 % 08/21/21 11: Baso % (Auto) 0.4 % 08/21/21 11:27 Neut # (Auto) 5.57 10^3/uL (1.8-7.7) 08/21/21 11:27 Lymph # (Auto) 1.4 10^3/uL (0.8-4.8) 08/21/21 11:27 [place] # (Auto) 1.1 10^3/uL (0.2-0.9) H 08/21/21 11:27 Eos # (Auto) 0.2 10^3/uL (0.0-0.8) 08/21/21 11:27 Baso # (Auto) 0.0 10^3/uL (0.0-0.1) 08/21/21 11:27 Absolute Gran (auto) Cancelled 08/21/21 04:10 Nucleated RBC % (auto) 0 % 08/21/21 11:27 Nucleated RBCs # 0.0 /100WBC 08/21/21 11:27 Specimen Type Arterial 08/20/21 21:42 Sample Site Radial, right 08/20/21 21:42 ABG pH 7.47 (7.35-7.45) H 08/20/21 21:42 ABG pCO2 35.8 mmHg (35-45) 08/20/21 21:42 ABG pO2 74.5 mmHg (80.0-100.0) L 08/20/21 21:42 ABG HCO3 26.1 mmol/L (22-26) H 08/20/21 21:42 ABG Base Excess 2.5 mmol/L (-2.0-2.0) H 08/20/21 21:42 Augusto Test Pos 08/20/21 21:42 Hematocrit 32.3 % (37-47) L 08/20/21 21:42 O2 Delivery Device Room air 08/20/21 21:42 Power Plant Manager ID [email or web address] 08/20/21 21:42 Sodium 149 mmol/L (136-145) H 08/22/21 05:49 Sodium Cancelled 08/22/21 05:49 Potassium 4.2 mmol/L (3.5-5.1) 08/22/21 05:49 Potassium Cancelled 08/22/21 05:49 Chloride 115 mmol/L (98-107) H 08/22/21 05:49 Chloride Cancelled 08/22/21 05:49 Carbon Dioxide 21 mmol/L (22-29) L 08/22/21 05:49 Carbon Dioxide Cancelled 08/22/21 05:49 Anion Gap 17.2 (5-19) 08/22/21 05:49 Anion Gap Cancelled 08/22/21 05:49 BUN 9 mg/dL (8-23) 08/22/21 05:49 BUN Cancelled 08/22/21 05:49 Creatinine 0.8 mg/dL (0.5-0.9) 08/22/21 05:49 Creatinine Cancelled 08/22/21 05:49 GFR Calculation Cancelled 08/22/21 05:49 GFR Calculation Not Reportable 08/22/21 05:49 Glucose 113 mg/dL (65-115) 08/22/21 05:49 Glucose Cancelled 08/22/21 05:49 POC Glucose 101 mg/dL (70-110) 08/20/21 21:35 Calculated Osmolality 307 mOsm/kg (285-295) H 08/22/21 05:49 Calculated Osmolality Cancelled 08/22/21 05:49 Lactic Acid 1.5 mmol/L (0.5-2.2) 08/20/21 22:52 Calcium 7.5 mg/dL (8.5-10.5) L 08/22/21 05:49 Calcium Cancelled 08/22/21 05:49 Magnesium 1.6 mg/dL (1.7-2.3) L 08/22/21 05:49 Magnesium Cancelled 08/22/21 05:49 Total Bilirubin 0.4 mg/dL (0.15-1.2) 08/22/21 05:49 AST 38 U/L (0-32) H 08/22/21 05:49 ALT 26 U/L (0-33) 08/22/21 05:49 Alkaline Phosphatase 41 IU/L (35-105) 08/22/21 05:49 Troponin T Baseline 139 ng/L (0-10) H* 08/20/21 21:34 Troponin T 120 Minute 138.4 ng/L (0-10) H 08/20/21 22:36 Delta Troponin T -0.6 ABS# (0-10) L 08/20/21 22:36 Troponin T Hi Sens 6Hr 131.0 ng/L (0-10) H 08/21/21 04:10 Troponin T Hi Sens 6Hr Delta -8.0 ng/L (0-12) L 08/21/21 04:10 Total Protein 4.5 g/dL (6.6-8.7) L 08/22/21 05:49 Albumin 2.8 g/dL (3.5-5.2) L 08/22/21 05:49 Globulin 1.7 g/dL (1.3-4.6) 08/22/21 05:49 Procalcitonin 0.06 ng/mL (0-0.5) 08/22/21 05:49 Procalcitonin Cancelled 08/22/21 05:49 TSH 3.21 uIU/mL (0.27-4.20) 08/20/21 21:34 Impressions Chest X-Ray 08/20/21 21:42 IMPRESSION: Hazy opacity at the left lung base raises concern for pneumonia. Head CT 08/20/21 21:42 IMPRESSION: There are senescent changes of the brain as described above. No evidence for large acute ischemic infarction or acute intracranial injury. Micro: Microbiology 08/20/21 22:52 Blood Culture - Preliminary Blood NEGATIVE TO DATE 08/20/21 22:52 Blood Culture - Preliminary Blood NEGATIVE TO DATE A&P Additional A&P Information Altered Mental status with underlying dementia Etiology is probably multifactorial. I suspect associated dehydration secondary to decreased oral intake secondary to recent CVA, possible UTI. I will decrease the dose of Keppra. We will continue IV fluids. We will check a UA and UCS. Will discuss with the family about long-term nutrition and hydration options. Suspected LLL pneumonia Doubt. Procalcitonin is normal. However I will keep her Zosyn on until I have UCS report. Elevated Troponin - hx fo CAD No pain. I suspect demand ischemia. We will continue her home medications. Recent R. CVA Repeat head CT - no acute abnormality Continue aspirin/ plavix/ statin 09/16 ECHO - pEF, Grade 1 DD, no sig valvular disease PT OT. Decubitus ulcer. Continue wound care. Continue air bed and repositioning. Discussed with the nursing staff. Hypomagnesemia. Replace and monitor. The plan of care was discussed with multidisciplinary team. Attestations Medical Necessity Statement*: The plan of care requires inpatient hospitalization. Coding Level of Care Code Acute Underwear Cutter for Justin Oconnell
[2021-08-22 21:13] LABS: Add Urine Microscopic? NO; Charge for UA Resulting for Rev
[2021-08-22 21:36] LABS: Bilirubin Urine Neg (Negative); Blood Urine Neg (Negative); Glucose Urine UA Norm (Normal); Ketones Urine Negative (Negative); Leukocyte Esterase Urine Negative (Negative); Nitrate Urine Negative (Negative); Protein Urine Neg (Negative); Specific Gravity, Urine 1.015 (1.005-1.030); Urine Appearance Clear (CLEAR); Urine Color Yellow (Yellow); Urobilinogen Urine Neg (Negative); pH Urine 5 (5-7)
[2021-08-23] VITALS (7 sets, daily range): BP systolic 131–188; BP diastolic 54–84; PULSE 60–89; RESP 16–21; TEMP 36.6–37.3; O2SAT 93–97
[2021-08-23] MEDS: dextrose 5%-sod chloride 0.9% 1,000 ML 75 ML IV ×2 (04:52→17:31)
[2021-08-23] MEDS: piperacillin-tazobactam 3.375 GM in sodium chloride 0.9% (plus) 50 ML IV ×2 (05:59)
[2021-08-23 07:22] LABS: Albumin Level 2.4 g/dL (3.5-5.2); Anion Gap 15.3 (5-19); Blood Urea Nitrogen 6 mg/dL (8-23); Calcium 7.5 mg/dL (8.5-10.5); Carbon Dioxide 22 mmol/L (22-29); Chloride 115 mmol/L (98-107); Glucose 113 mg/dL (65-115); Phosphorus 2.4 mg/dL (2.5-4.5); Potassium 3.3 mmol/L (3.5-5.1); Sodium 149 mmol/L (136-145)
[2021-08-23 07:42] LABS: Magnesium 1.8 mg/dL (1.7-2.3)
[2021-08-23] MEDS: heparin 5,000 unit/mL INJ 1 mL 5000 UNIT SUBCUT ×4 (08:47→23:43)
--- NOTE | 2021-08-23 09:00 | PC.NURSE ---
Complete bed bath given, full assistance required, dressing changed to sacrum, repositioned in bed with pillows to decrease pressure points, floated heels due to xiomara-able redness noted to bilateral heels.
--- NOTE | 2021-08-23 09:38 | PC.NURSE ---
patient unable to take PO scheduled medications, does not follow safety commands to swallow. Dr. Neff notified.
--- NOTE | 2021-08-23 09:42 | PC.NURSE ---
received new order from Dr. Neff to stop PO potassium order and change to IV, see MAR for further details.
[2021-08-23] MEDS: lidocaine 1% 5 ML in potassium chloride premix 100 ML 50 ML IV (10:29)
--- NOTE | 2021-08-23 14:25 | P.PN_ITS ---
Subjective Subjective: Interval history: No significant changes since yesterday. The patient is in no acute distress. Following simple instructions. No signs of pain. No respiratory distress. Medications: Reviewed: Yes Medication Review Details: Generic Name Dose Route Start Last Admin Trade Name Cristopher PRN Reason Stop Dose Admin Aspirin 81 mg 08/21/21 09:00 08/23/21 08:50 Aspirin 81 Mg Ec Tablet PO Not Given DAILY [facility] Atorvastatin Calci um 20 mg 08/21/21 21:00 08/22/21 20:46 Atorvastatin 40 Mg Tablet PO Not Given BEDTIME [facility] Clopidogrel Bisulf ate 75 mg 08/21/21 09:00 08/23/21 08:50 Clopidogrel 75 M g Tablet PO Not Given DAILY [facility] Donepezil HCl 5 mg 08/21/21 09:00 08/23/21 08:50 Donepezil 5 Mg T ablet PO Not Given DAILY [facility] Heparin Sodium (Po rcine) 5,000 unit 08/21/21 08:00 08/23/21 08:47 Heparin 5,000 Un it/Ml Inj 1 Ml SUBCUT 5,000 unit Q8H [facility] Administration Piperacillin Sod/T azobactam 50 mls @ 12.5 mls /hr 08/21/21 07:00 08/23/21 11:25 Sod 3.375 gm/ So dium Chloride IV Infused Q8H [facility] Infusion Protocol As Directed Dextrose/Sodium Ch loride 1,000 mls @ 75 ml s/hr 08/21/21 11:45 08/23/21 04:52 Dextrose 5%-Sod Chloride 0.9% IV 75 mls/hr .[id number] [facility] Administration Levetiracetam 250 mg 08/22/21 21:00 08/23/21 08:50 Levetiracetam 50 0 Mg Tablet PO Not Given BID@0900,2100 [facility] Pantoprazole Sodiu m 40 mg 08/21/21 09:00 08/23/21 08:[address] 40 Mg Tablet PO Not Given DAILY [facility] Vitals/I&O/Wt Last Vital Signs Temp 98.7 F 08/23/21 12:30 Pulse 83 08/23/21 12:30 Resp 16 08/23/21 12:30 BP 161/61 08/23/21 12:30 Pulse Ox 93 08/23/21 12:30 08/22/21 08/23/21 08/23/21 22:59 06:59 14:59 Intake Total 102 / 1198.25 1050 / 2248.25 155 / 155 Output Total 110 / 110 200 / 310 Balance -8 / 1088.25 850 / 1938.25 155 / 155 Weight last 48 hrs Weight 64.455 kg Weight 64.592 kg Physical Exam Narrative: EXAM NARRATIVE: Awake. Averbal. No acute distress. Follows instructions Skin is warm and dry. MMM. Neck supple. No JVD Lungs clear bilaterally. No respiratory distress Heart S1, S2, regular Abdomen is soft, nontender, bowel sounds are present Extremities no calf tenderness, no cyanosis. Neuro. Aphasia is present. She was able to wiggle her toes symmetrically bilaterally. Left upper extremity is present. Data : 08/21/21 11:27 08/23/21 06:35 A&P Additional A&P Information Altered Mental status with underlying dementia Etiology is probably multifactorial. I suspect associated dehydration secondary to decreased oral intake secondary to recent CVA, possible UTI. Keppra dose is decreased. We will continue IV fluids. UCS is positive for Klebsiella sensitive to Rocephin. We will stop Zosyn and start Rocephin. We will switch her to Omnicef at discharge. Suspected LLL pneumonia Doubt. Procalcitonin is normal. Elevated Troponin - hx fo CAD No pain. I suspect demand ischemia. We will continue her home medications. Recent R. CVA Repeat head CT - no acute abnormality Continue aspirin/ plavix/ statin 09/16 ECHO - pEF, Grade 1 DD, no sig valvular disease PT OT. Decubitus ulcer. Continue wound care. Continue air bed and repositioning. Discussed with the nursing staff. Hypomagnesemia. Replace and monitor. Nutrition. The family is going to continue efforts to feed her and hydrate her orally. The plan of care was discussed with multidisciplinary team. The plan of care wa s discussed with the patient's son who visited her today. He is planning to take her to [place] early in August. This arrangements are finalized. I expressed my concern regarding the travel for the patient. However he stated that there are no other options. He does not want longterm facility placement. Home health will be arranged for tomorrow. He states that he has plenty of support to help him at home with her care. Disposition. Probably home tomorrow with home health care. Attestations Medical Necessity Statement*: Probable discharge home tomorrow. Coding Level of Care Code Acute Lcac Operator for Justin Oconnell
--- NOTE | 2021-08-23 15:08 | PC.OT ---
Discharge patient from occupational therapy services. Patient being discharged due to current medical condition due to late stage dementia. Therapy services were attempted, no progress has been made. Family discussing hospice care.
[2021-08-23] MEDS: cefTRIAXone 1,000 MG in sodium chloride 0.9% (plus) 50 ML 100 MG IV (15:16)
--- NOTE | 2021-08-23 16:00 | PC.SOCIAL ---
CM reached out to A.T. due to patient not having DPOA on file and family not agreeing on healthcare decisions. Hermilo from [facility] called and plans on seeing patient 08/24.
[2021-08-23] MEDS: lanolin oint 7 gm 1 APPLIC TOPICAL (23:54)
[2021-08-24 04:00] VITALS: BP 143/67; PULSE 77; RESP 18; TEMP 36.8; O2SAT 94
[2021-08-24] MEDS: dextrose 5%-sod chloride 0.9% 1,000 ML 75 ML IV ×2 (06:21→21:40)
[2021-08-24 07:27] LABS: Albumin Level 2.2 g/dL (3.5-5.2); Blood Urea Nitrogen 4 mg/dL (8-23); Calcium 7.3 mg/dL (8.5-10.5); Carbon Dioxide 19 mmol/L (22-29); Chloride 115 mmol/L (98-107); Glucose 114 mg/dL (65-115); Phosphorus 2.2 mg/dL (2.5-4.5); Sodium 145 mmol/L (136-145)
[2021-08-24 07:30] LABS: Anion Gap 14.4 (5-19); Potassium 3.4 mmol/L (3.5-5.1)
[2021-08-24 07:51] LABS: Magnesium 1.6 mg/dL (1.7-2.3)
[2021-08-24 08:00] VITALS: BP 136/72; PULSE 90; RESP 18; TEMP 37.2; O2SAT 94
[2021-08-24] MEDS: heparin 5,000 unit/mL INJ 1 mL 5000 UNIT SUBCUT ×3 (09:37→23:10)
[2021-08-24] MEDS: potassium chloride premix 100 ML 50 MEQ IV (10:59)
[2021-08-24 12:00] VITALS: BP 129/64; PULSE 74; RESP 18; TEMP 36.6; O2SAT 93
--- NOTE | 2021-08-24 12:25 | P.PN_ITS ---
Subjective Subjective: Interval history: No significant changes or events. No active complaints or distress. No shortness of breath or cough. No nausea or vomiting. No chills. Medications: Reviewed: Yes Medication Review Details: Generic Name Dose Route Start Last Admin Trade Name Freq PRN Reason Stop Dose Admin Amlodipine Besylat e 2.5 mg 08/24/21 09:00 08/24/21 11:11 Amlodipine 5 Mg Tablet PO Not Given DAILY [facility] Aspirin 81 mg 08/21/21 09:00 08/24/21 11:11 Aspirin 81 Mg Ec Tablet PO Not Given DAILY [facility] Atorvastatin Calci um 20 mg 08/21/21 21:00 08/23/21 21:21 Atorvastatin 40 Mg Tablet PO Not Given BEDTIME [facility] Clopidogrel Bisulf ate 75 mg 08/21/21 09:00 08/24/21 11:12 Clopidogrel 75 M g Tablet PO Not Given DAILY [facility] Donepezil HCl 5 mg 08/21/21 09:00 08/24/21 11:12 Donepezil 5 Mg T ablet PO Not Given DAILY [facility] Heparin Sodium (Po rcine) 5,000 unit 08/21/21 08:00 08/24/21 09:37 Heparin 5,000 Un it/Ml Inj 1 Ml SUBCUT 5,000 unit Q8H [facility] Administration Dextrose/Sodium Ch loride 1,000 mls @ 75 ml s/hr 08/21/21 11:45 08/24/21 06:21 Dextrose 5%-Sod Chloride 0.9% IV 75 mls/hr .[id number] [facility] Administration Ceftriaxone Sodium 1,000 mg/ 50 mls @ 100 mls/ hr 08/23/21 15:00 08/23/21 15:57 Sodium Chloride IV Infused Q24H [facility] Infusion Protocol Lanolin 1 applic 08/23/21 23:49 08/23/21 23:54 Lanolin Oint 7 G m TOPICAL 1 tube PRN PRN Administration DRYNESS Levetiracetam 250 mg 08/22/21 21:00 08/24/21 11:12 Levetiracetam 50 0 Mg Tablet PO Not Given BID@0900,2100 [facility] Lisinopril 5 mg 08/23/21 18:00 08/24/21 11:12 Lisinopril 5 Mg Tablet PO Not Given BID [facility] Pantoprazole Sodiu m 40 mg 08/21/21 09:00 08/24/21 11:[address] 40 Mg Tablet PO Not Given DAILY [facility] Vitals/I&O/Wt Last Vital Signs Temp 99 F 08/24/21 08:00 Pulse 90 08/24/21 08:00 Resp 18 08/24/21 08:00 BP 136/72 08/24/21 08:00 Pulse Ox 94 08/24/21 08:00 08/23/21 08/24/21 08/24/21 22:59 06:59 14:59 Intake Total 998.75 / 1153.75 962.5 / 2116.25 Output Total 450 / 450 350 / 800 Balance 548.75 / 703.75 612.5 / 1316.25 Weight last 48 hrs Weight 64.319 kg Weight 64.455 kg Physical Exam Narrative: EXAM NARRATIVE: Awake. Averbal. No acute distress. Follows instructions Skin is warm and dry. MMM. Neck supple. No JVD Lungs clear bilaterally. No respiratory distress Heart S1, S2, regular Abdomen is soft, nontender, bowel sounds are present Extremities no calf tenderness, no cyanosis. Neuro. Aphasia is present. She was able to wiggle her toes symmetrically bilaterally. Left upper extremity is present. Data : 08/21/21 11:27 08/24/21 06:10 A&P Additional A&P Information Altered Mental status with underlying dementia Etiology is probably multifactorial. I suspect associated dehydration secondary to decreased oral intake secondary to recent CVA, possible UTI. Keppra dose is decreased. We will continue IV fluids. UCS is positive for Klebsiella sensitive to Rocephin. We will continue Rocephin. Suspected LLL pneumonia Doubt. Procalcitonin is normal. Elevated Troponin - hx fo CAD No pain. I suspect demand ischemia. We will continue her home medications. Recent R. CVA Repeat head CT - no acute abnormality Continue aspirin/ plavix/ statin 09/16 ECHO - pEF, Grade 1 DD, no sig valvular disease PT OT. Decubitus ulcer. Continue wound care. Continue air bed and repositioning. Discussed with the nursing staff. Hypomagnesemia. Replace and monitor. Nutrition. The family is going to continue efforts to feed her and hydrate her orally. The plan of care was discussed with multidisciplinary team and APS agent. Patient has baseline dementia and recent debilitating stroke. Based on my assessment of her mental status I believe that she is not capable of making and verbalizing any rational decisions. I do not believe that she has capacity of making best decisions for herself. She has 2 caring sons. Unfortunately their opinion about her discharge and care is very different. Manpreet wants her to be discharged to [facility] facility temporarily and wants to take her to [place] from there in the beginning of August. Devin who lives in [place] wants her to stay in [place]. He believes that the patient would not benefit from traveling to [place]. He is concerned about his brother's intention to take their mom to [place]. We do not have any official guardianship or POA documentation from family. Until we have any paperwork granting any of the children with guardianship we will keep her here. We will obtain temporary state guardianship documentation. About 45 minutes are spent on this encounter today. Attestations Medical Necessity Statement*: See discussions above Coding Level of Care Code Acute Senior Human Resources Representative for Justin Oconnell
--- NOTE | 2021-08-24 14:33 | PM.MISC ---
Miscellaneous Note Purpose of Documentation: As per request from Dr. Neff Note: Patient seen as per request by Dr. Neff to assess for capacity to make her own decisions. Seen with RN at bedside. 85-year-old female past medical history of COPD, advanced dementia, carotid artery stenosis, recent acute right parietal/temporal CVA who presented to the hospital for the second time in last 1 week on 08/20 for altered mental status thought to be from a combination of stroke, worsening dementia. On exam Patient is awake, confused, eyes open. Able to track with eyes slightly on verbal cue, not able to follow simple commands but able to blink eyes when asked to, averbal. Not able to verbalize if she is been any distress. I agree with Dr. Neff patient does not have capacity of making her own decisions or verbalizing any needs or rational decisions currently.
[2021-08-24 15:52] VITALS: BP 133/75; PULSE 79; RESP 18; TEMP 37.3; O2SAT 93
[2021-08-24] MEDS: cefTRIAXone 1,000 MG in sodium chloride 0.9% (plus) 50 ML 100 MG IV (17:45)
--- NOTE | 2021-08-24 18:53 | PC.NURSE ---
patients son Jones from [place] called and was updated on patient condition. Discussed the department of senior services involvement. Jones stated that at some point the patients son in [place] did have some type of legal paperwork , but stated that it is unknown where this paperwork is. Jones stated that the son that lives in [place] has always been the one to take care of the patient and her prior to his passing. After discussing senior services involvement Jones became defensive about how well his brother has taken care of the patient. I told Jones that I would reach out to social worker assistant so they could further discuss DPOA and who will make decisions. I stated that it may not be until tomorrow that he heres back form them, as I think they have left for the evening. Armando MATTHEW made aware of my conversation with Jones, and directed to pass on in report that case management needs to get in touch with the son tomorrow.
[2021-08-24 20:00] VITALS: BP 162/72; PULSE 80; RESP 27; TEMP 36.9; O2SAT 94
[2021-08-25] VITALS: BP 129/73; PULSE 69; RESP 17; O2SAT 92
[2021-08-25 04:00] VITALS: BP 124/62; PULSE 78; RESP 17; TEMP 36.8; O2SAT 92
[2021-08-25 06:42] LABS: Albumin Level 2.3 g/dL (3.5-5.2); Anion Gap 11.5 (5-19); Blood Urea Nitrogen 4 mg/dL (8-23); Calcium 7.2 mg/dL (8.5-10.5); Carbon Dioxide 23 mmol/L (22-29); Chloride 114 mmol/L (98-107); Creatinine Clr Calc Pharmacy 45.0141; Glucose 105 mg/dL (65-115); Phosphorus 2.1 mg/dL (2.5-4.5); Potassium 3.5 mmol/L (3.5-5.1); Sodium 145 mmol/L (136-145)
[2021-08-25 07:23] LABS: Magnesium 1.7 mg/dL (1.7-2.3)
[2021-08-25 07:40] VITALS: BP 146/65; PULSE 75; RESP 28; TEMP 38.1; O2SAT 93
[2021-08-25] MEDS: heparin 5,000 unit/mL INJ 1 mL 5000 UNIT SUBCUT ×2 (09:34→17:42)
--- NOTE | 2021-08-25 10:21 | PC.SOCIAL ---
IMM update IMM updated placed at patient's bedside. Initialled, dated, timed, and placed in chart.
[2021-08-25] MEDS: dextrose 5%-sod chloride 0.9% 1,000 ML 75 ML IV (10:50)
--- NOTE | 2021-08-25 11:47 | P.PN_ITS ---
Subjective Subjective: Interval history: No significant changes. Discussed with the nurse. The patient does not eat or drink much. Misses her pills frequently. No acute distress. No pain. She is awake but unresponsive. A verbal. Medications: Reviewed: Yes Medication Review Details: 3Generic Name Dose Route Start Last Admin Trade Name Cristopher PRN Reason Stop Dose Admin Amlodipine Besylat e 2.5 mg 08/24/21 09:00 08/25/21 09:46 Amlodipine 5 Mg Tablet PO Not Given DAILY [facility] Aspirin 81 mg 08/21/21 09:00 08/25/21 09:46 Aspirin 81 Mg Ec Tablet PO Not Given DAILY [facility] Atorvastatin Calci um 20 mg 08/21/21 21:00 08/24/21 21:41 Atorvastatin 40 Mg Tablet PO Not Given BEDTIME [facility] Clopidogrel Bisulf ate 75 mg 08/21/21 09:00 08/25/21 09:46 Clopidogrel 75 M g Tablet PO Not Given DAILY [facility] Donepezil HCl 5 mg 08/21/21 09:00 08/25/21 09:46 Donepezil 5 Mg T ablet PO Not Given DAILY [facility] Heparin Sodium (Po rcine) 5,000 unit 08/21/21 08:00 08/25/21 09:34 Heparin 5,000 Un it/Ml Inj 1 Ml SUBCUT 5,000 unit Q8H [facility] Administration Dextrose/Sodium Ch loride 1,000 mls @ 75 ml s/hr 08/21/21 11:45 08/25/21 10:50 Dextrose 5%-Sod Chloride 0.9% IV 75 mls/hr .[id number] [facility] Administration Ceftriaxone Sodium 1,000 mg/ 50 mls @ 100 mls/ hr 08/23/21 15:00 08/24/21 18:18 Sodium Chloride IV Infused Q24H [facility] Infusion Protocol Lanolin 1 applic 08/23/21 23:49 08/23/21 23:54 Lanolin Oint 7 G m TOPICAL 1 tube PRN PRN Administration DRYNESS Levetiracetam 250 mg 08/22/21 21:00 08/25/21 09:46 Levetiracetam 50 0 Mg Tablet PO Not Given BID@0900,2100 [facility] Lisinopril 5 mg 08/23/21 18:00 08/25/21 09:46 Lisinopril 5 Mg Tablet PO Not Given BID [facility] Pantoprazole Sodiu m 40 mg 08/21/21 09:00 08/25/21 09:[address] 40 Mg Tablet PO Not Given DAILY [facility] Vitals/I&O/Wt Last Vital Signs Temp 100.5 F H 08/25/21 07:40 Pulse 75 08/25/21 07:40 Resp 28 H 08/25/21 07:40 BP 146/65 08/25/21 07:40 Pulse Ox 93 08/25/21 07:40 08/24/21 08/25/21 08/25/21 22:59 06:59 14:59 Intake Total 1270 / 1422 987.5 / 987.5 Output Total 500 / 500 500 / 1000 325 / 325 Balance 770 / 922 -500 / 422 662.5 / 662.5 Weight last 48 hrs Weight 63.503 kg Weight 64.319 kg Physical Exam Narrative: EXAM NARRATIVE: Awake. Averbal. No acute distress. Follows instructions Skin is warm and dry. dry MM Neck supple. No JVD Lungs clear bilaterally. No respiratory distress Heart S1, S2, regular Abdomen is soft, nontender, bowel sounds are present Extremities no calf tenderness, no cyanosis. Neuro. Aphasia is present. She was able to wiggle her toes symmetrically bilaterally. Left upper extremity is present. Data : 08/21/21 11:27 08/25/21 05:51 A&P Additional A&P Information Altered Mental status with underlying dementia Etiology is probably multifactorial. I suspect associated dehydration secondary to decreased oral intake secondary to recent CVA, possible UTI. Keppra dose is decreased. Not taking currently. Switch to IV. We will continue IV fluids. UCS is positive for Klebsiella sensitive to Rocephin. We will continue Rocephin. Suspected LLL pneumonia Doubt. Procalcitonin is normal. Elevated Troponin - hx fo CAD No pain. I suspect demand ischemia. We will continue her home medications. Recent R. CVA Repeat head CT - no acute abnormality Continue aspirin/ plavix/ statin 09/16 ECHO - pEF, Grade 1 DD, no sig valvular disease PT OT. Decubitus ulcer. Continue wound care. Continue air bed and repositioning. Discussed with the nursing staff. Also requested air mattress. Hypomagnesemia. Replace and monitor. Nutrition. The family is going to continue efforts to feed her and hydrate her orally. The plan of care was discussed with multidisciplinary team and APS agent. Patient has baseline dementia and recent debilitating stroke. Based on my assessment of her mental status I believe that she is not capable of making and verbalizing any rational decisions. I do not believe that she has capacity of making best decisions for herself. She has 2 caring sons. Unfortunately their opinion about her discharge and care is very different. Manpreet [facility] to [facility] and wants to take her to [place] from there in the beginning of August. Devin who lives in [place] wants her to stay in [place]. He believes that the patient would not benefit from traveling to [place]. He is concerned about his brother's intention to take their mom to [place]. We do not have any official guardianship or POA documentation from family. Until we have any paperwork granting any of the children with guardianship we will keep her here. We will obtain temporary state guardianship documentation. Attestations Medical Necessity Statement*: ///Pending guardianship finalization Coding Level of Care Code Acute Welt Edge Rounder for Justin Oconnell
[2021-08-25 11:59] VITALS: BP 146/70; PULSE 82; RESP 28; TEMP 36.7; O2SAT 92
[2021-08-25] MEDS: levETIRAcetam 250 MG in sodium chloride 0.9% (100 ml) 100 ML 410 MG IV (13:47)
[2021-08-25] MEDS: D5-NS 0.45% + KCL 20 mEq 20 MEQ/1,000 ML BAG 50 MEQ IV (14:09)
[2021-08-25 15:51] VITALS: BP 142/62; PULSE 79; RESP 19; TEMP 36.7; O2SAT 95
[2021-08-25] MEDS: cefTRIAXone 1,000 MG in sodium chloride 0.9% (plus) 50 ML 100 MG IV (17:45)
[2021-08-25 20:00] VITALS: BP 148/65; PULSE 76; RESP 18; TEMP 36.9; O2SAT 92
[2021-08-26] VITALS (8 sets, daily range): BP systolic 133–176; BP diastolic 56–71; PULSE 70–99; RESP 16–32; TEMP 36.6–37.3; O2SAT 92–97; BMI 27.4
[2021-08-26] MEDS: heparin 5,000 unit/mL INJ 1 mL 5000 UNIT SUBCUT ×2 (00:14→10:19)
[2021-08-26] MEDS: levETIRAcetam 250 MG in sodium chloride 0.9% (100 ml) 100 ML 410 MG IV (00:17)
[2021-08-26 06:44] LABS: Basophils % 0.3 %; Eosinophils # 0.2 10^3/uL (0.0-0.8); Eosinophils % 1.5 %; Hematocrit 30.8 % (37.0-47.0); Hemoglobin 9.9 g/dL (11.5-15.3); Lymphocytes # 1.5 10^3/uL (0.8-4.8); Lymphocytes % 14.3 %; Mean Corpuscular HGB Conc 32.1 g/dL (30.0-36.0); Mean Corpuscular Hemoglobin 30.7 pg (28.0-34.0); Mean Corpuscular Volume 95.7 fl (81-99); Mean Platelet Volume 11.8 fL (7.4-10.4); Monocytes # 0.8 10^3/uL (0.2-0.9); Monocytes % 7.7 %; Neutrophils % 75.8 %; Nucleated Red Blood Cells % 0 %; Platelet Count 175 10^3/cmm (130-400); Red Blood Count 3.22 10^6/uL (4.1-5.3); Red Cell Distribution Width 14.3 % (12.1-15.1); White Blood Count 10.2 10^3/uL (4.0-10.0)
[2021-08-26 07:13] LABS: Albumin Level 2.1 g/dL (3.5-5.2); Anion Gap 13.3 (5-19); Blood Urea Nitrogen 5 mg/dL (8-23); Carbon Dioxide 21 mmol/L (22-29); Chloride 111 mmol/L (98-107); Glucose 101 mg/dL (65-115); Phosphorus 2.2 mg/dL (2.5-4.5); Potassium 3.3 mmol/L (3.5-5.1); Sodium 142 mmol/L (136-145)
[2021-08-26 07:21] LABS: Magnesium 1.5 mg/dL (1.7-2.3)
[2021-08-26] MEDS: D5-NS 0.45% + KCL 20 mEq 20 MEQ/1,000 ML BAG 50 MEQ IV (10:17)
--- NOTE | 2021-08-26 12:43 | P.PN_ITS ---
Subjective Subjective: Interval history: Seen this morning. Unable to obtain history from the patient as she is nonverbal. Obtain information from nurse. No acute events overnight. Vitals/I&O/Wt Last Vital Signs Temp 97.9 F 08/26/21 11:55 Pulse 79 08/26/21 11:55 Resp 22 H 08/26/21 11:55 BP 176/63 08/26/21 11:55 Pulse Ox 96 08/26/21 11:55 08/25/21 08/26/21 08/26/21 22:59 06:59 14:59 Intake Total 152.5 / 1140.0 1102.5 / 2242.5 1000 / 1000 Output Total 250 / 575 450 / 1025 200 / 200 Balance -97.5 / 565.0 652.5 / 1217.5 800 / 800 Weight last 48 hrs Weight 68.039 kg Weight 63.503 kg Physical Exam Narrative: EXAM NARRATIVE: No acute distress. Patient is asleep. Does not follow instructions for me when eyes open. Skin is warm and dry. dry MM, currently on 50 cc fluids. Neck supple. No JVD Lungs clear bilaterally. No respiratory distress Heart S1, S2, regular Abdomen is soft, nontender, bowel sounds are present. Does not grimace secondary to pain when palpated. Extremities no calf tenderness, no cyanosis. Neuro. patient does not follow commands unable to do a proper neuro exam. She does have hemiparesis. Data : 08/26/21 06:12 08/26/21 06:12 Micro: Microbiology 08/20/21 22:52 Blood Culture - Final Blood NO GROWTH AFTER 5 DAYS 08/20/21 22:52 Blood Culture - Final Blood NO GROWTH AFTER 5 DAYS A&P Assessment and plan (1) Acute CVA (cerebrovascular accident): Status: Acute (2) COPD (chronic obstructive pulmonary disease): Status: Acute (3) Dementia: Status: Acute (4) Dyslipidemia: Status: Acute (5) HTN (hypertension): Status: Chronic Additional A&P Information Altered Mental status with underlying dementia Etiology is probably multifactorial. I suspect associated dehydration secondary to decreased oral intake secondary to recent CVA, possible UTI. Keppra dose is decreased. Not taking currently. Switch to IV. We will continue IV fluids. UCS is positive for Klebsiella sensitive to Rocephin. We will continue Rocephin. Suspected LLL pneumonia Doubt. Procalcitonin is normal. Elevated Troponin - hx fo CAD No pain. I suspect demand ischemia. We will continue her home medications. Recent R. CVA Repeat head CT - no acute abnormality Continue aspirin/ plavix/ statin 09/16 ECHO - pEF, Grade 1 DD, no sig valvular disease PT OT. Decubitus ulcer. Continue wound care. Continue air bed and repositioning. Discussed with the nursing staff. Also requested air mattress. I will be alvarezo rusty at the wound with the nurse at next dressing change. Hypomagnesemia. Replace and monitor. Nutrition: Patient is currently not getting any form of nutrition. I don't believe she can participate in taking anything orally at this time. I have discussed with case management regarding potential Dobbhoff tube or other forms of nutrition. We'll try to reach out to family to discuss this today. Even if Dobbhoff tube is placed it will be a temporary measure and will not prevent aspiration. I have been told by hospital staff that previous discussion has been made with the family not being interested in the PEG tube at this time which I believe is also reasonable given patient's condition and quality of life at this time. Patient was seen by another physician to assess for capacity. I completely agree with his assessment that patient does not have any decision- making capacity at this time. Currently we do not have any official guardianship or DPOA from family. Temporary state guardianship documentation is being worked on at this time. We will try to reach out to the family to see if we can have a joint family meeting/conference call to decide on best interest for the patient at this time. I do believe a palliative approach would be best considering patient's multiple issues and current debilitating condition secondary to recent stroke and the fact that she is unable to take anything orally. Attestations Medical Necessity Statement*: >72 hour stay Coding Level of Care Code Acute Customer Orders Clerk for g Fwmarino Diagnoses Acute CVA (cerebrovascular accident) I63.9 COPD (chronic obstructive pulmonary disease) J44.9 Dementia F03.90 Dyslipidemia E78.5 HTN (hypertension) I10
--- NOTE | 2021-08-26 15:24 | P.EN_ITS ---
Event Note Event Note: Family meeting was done with patient's son's (Mr. Devin Goldman and Mr. Bojorquez). 2 of the brothers were on the phone one was here in person. Julia case management was also present during the meeting. Patient's current medical status was discussed with the family including the fact that she is not eating. Her debilitation due to the stroke and her stage III sacral ulcer was also discussed. Family does state that patient would not want to live like this and never wanted to go to a skilled nursing. They are just very surprised at her rapid decline after having her stroke. They were also surprised regarding the sacral ulcer which was present on admission. They do understand that they cannot take the patient to [place] as she is unstable for the ride. She is also severely malnourished and possibly in starvation due to not eating anything by mouth. I did offer the option of a feeding tube to the family as well. After extensive discussion with family they opted for comfort measures for the patient and stated they would like to keep her comfortable at this time given her current situation. They will be discussing on Sunday regarding home with hospice versus hospice facility versus inpatient hospice. I did explain to them what comfort measures means and morphine Ativan artificial tears Tylenol all these things were discussed and they would like to proceed. telesales manager Julia was also present during the whole encounter and witnessed. We will respect the family's decision and wishes at this time and start comfort measures for the patient.
[2021-08-27] VITALS: BP 160/69; PULSE 82; RESP 30; TEMP 37.3
[2021-08-27 03:23] VITALS: BP 160/69; PULSE 82; RESP 30; TEMP 37.3
[2021-08-27 06:00] VITALS: BMI 27.4
[2021-08-27 07:28] VITALS: PULSE 80; RESP 38; O2SAT 97
--- NOTE | 2021-08-27 09:40 | PC.SOCIAL ---
IMM Update Patient not expected to d/c within the next 48 hours. Currently on comfort care.
[2021-08-27 11:44] VITALS: BP 165/68; PULSE 77; RESP 36; TEMP 37.9; O2SAT 94
--- NOTE | 2021-08-27 11:45 | PM.PN ---
Subjective Subjective: Interval history: Seen this morning. No acute events overnight reported. Patient is not following any commands same as yesterday. She appears comfortable however. Afebrile overnight. Vitals/I&O/Wt Last Vital Signs Temp 99.1 F 08/27/21 03:23 Pulse 80 08/27/21 07:28 Resp 38 H 08/27/21 07:28 BP 160/69 08/27/21 03:23 Pulse Ox 97 08/27/21 07:28 08/26/21 08/27/21 08/27/21 22:59 06:59 14:59 Intake Total 0 / 1251.7249 0 / 1251.7249 0 / 0 Output Total 150 / 350 300 / 650 Balance -150 / 901.7249 -300 / 601.7249 0 / 0 Weight last 48 hrs Weight 68.039 kg Weight 68.039 kg Physical Exam Narrative: EXAM NARRATIVE: No acute distress. Patient did wake up briefly but went right back to sleep when seen. Does not follow instructions for me when eyes open. i asked her to wiggle her toes but she did not. Appears comfortable Skin is warm and dry. Dry Mucous membranes Neck supple. No JVD Lungs clear bilaterally. No respiratory distress Heart S1, S2, regular Abdomen is soft, bowel sounds are present. Does not grimace secondary to pain when palpated. Extremities no calf tenderness, no cyanosis. Neuro. patient does not follow commands Data : 08/26/21 06:12 08/26/21 06:12 A&P Assessment and plan (1) Acute CVA (cerebrovascular accident): Status: Acute (2) COPD (chronic obstructive pulmonary disease): Status: Acute (3) Dementia: Status: Acute (4) Dyslipidemia: Status: Acute (5) HTN (hypertension): Status: Chronic Additional A&P Information Altered Mental status with underlying dementia Recent CVA Malnourished/Starvation secondary to dysphagia Decubitus Ulcer - Patient was made comfort measures yesterday by family. Please see previous notes for details. She appears comfortable today. Will continue keeping her comfortable. Family to discuss on Sunday regarding placement with hospice. Attestations Medical Necessity Statement*: > 48 hours Coding Level of Care Code Acute Business Specialist for Justin Oconnell Diagnoses Acute CVA (cerebrovascular accident) I63.9 COPD (chronic obstructive pulmonary disease) J44.9 Dementia F03.90 Dyslipidemia E78.5 HTN (hypertension) I10
[2021-08-27 15:50] VITALS: BP 162/78; PULSE 84; RESP 38; TEMP 37.9; O2SAT 93
[2021-08-27 20:00] VITALS: BP 181/66; PULSE 88; RESP 18; TEMP 36.6; O2SAT 92
[2021-08-28] VITALS (7 sets, daily range): BP systolic 126–172; BP diastolic 57–86; PULSE 67–82; RESP 16–32; TEMP 36.4–37.3; O2SAT 94–96
[2021-08-28] MEDS: LORazepam 2 mg/mL INJ 1 mL IVP ×2 (10:35→18:32)
--- NOTE | 2021-08-28 13:29 | PC.NURSE ---
Attempted to call back patient's daughter at [phone] and no answer or ability to leave a message.
--- NOTE | 2021-08-28 15:41 | PM.PN ---
Subjective Subjective: Interval history: Seen this AM. She had her eyes open but did not follow any commands. Appears comfortable. Vitals/I&O/Wt Last Vital Signs Temp 97.8 F 08/28/21 12:00 Pulse 75 08/28/21 12:00 Resp 32 H 08/28/21 12:00 BP 159/67 08/28/21 08:00 Pulse Ox 95 08/28/21 12:00 08/28/21 08/28/21 08/28/21 06:59 14:59 22:59 Output Total 300 / 700 Balance -300 / -700 Weight last 48 hrs Weight 62.278 kg Weight 68.039 kg Physical Exam Narrative: EXAM NARRATIVE: No acute distress. Does not follow instructions for me when eyes open.Appears comfortable Skin is warm and dry. She is getting oral care with wet sponges in mouth, mouth did appear dry as she keeps it open. Neck supple. No JVD Lungs clear bilaterally. No respiratory distress Heart S1, S2, regular Abdomen is soft, bowel sounds are present. Does not grimace secondary to pain when palpated. Extremities no calf tenderness, no cyanosis. Neuro. patient does not follow commands Data : 08/26/21 06:12 08/26/21 06:12 A&P Assessment and plan (1) Acute CVA (cerebrovascular accident): Status: Acute (2) COPD (chronic obstructive pulmonary disease): Status: Acute (3) Dementia: Status: Acute (4) Dyslipidemia: Status: Acute (5) HTN (hypertension): Status: Chronic Additional A&P Information #Altered Mental status with underlying dementia #Recent CVA #Malnourished/Starvation secondary to dysphagia #Decubitus Ulcer - Patient was made comfort measures 08/26/2022 by family. Please see previous notes for details. She appears comfortable today. Will continue keeping her comfortable. Family to discuss on Sunday regarding placement with hospice. Attestations Medical Necessity Statement*: > 48 hour stay. Comfort measures. Family to decide placement on Sunday. Coding Level of Care Code Acute Class A Regional Truck Driver for Justin Oconnell Diagnoses Acute CVA (cerebrovascular accident) I63.9 COPD (chronic obstructive pulmonary disease) J44.9 Dementia F03.90 Dyslipidemia E78.5 HTN (hypertension) I10
[2021-08-29 04:00] VITALS: BP 148/77; PULSE 68; RESP 16; TEMP 36.4; O2SAT 91
[2021-08-29] MEDS: LORazepam 2 mg/mL INJ 1 mL IVP (07:47)
[2021-08-29 08:00] VITALS: BP 155/60; PULSE 82; RESP 32; TEMP 36.4; O2SAT 97
[2021-08-29] MEDS: morphine 4 mg/mL SDV 1 mL IVP ×2 (11:20→15:53)
[2021-08-29 12:00] VITALS: BP 148/71; PULSE 76; RESP 30; TEMP 37.3; O2SAT 94
--- NOTE | 2021-08-29 13:14 | PC.SOCIAL ---
IMM Updated Updated pt's son on IMM. No questions voiced. Provided pt a copy. Initialed, dated, & timed copy in chart.
--- NOTE | 2021-08-29 13:57 | PM.PN ---
Subjective Subjective: Interval history: Seen today. Appears comfortable. Discussed with RN. Patient has required morphine and ativan over last 24 hours. Vitals/I&O/Wt Last Vital Signs Temp 99.2 F 08/29/21 12:00 Pulse 76 08/29/21 12:00 Resp 30 H 08/29/21 12:00 BP 148/71 08/29/21 12:00 Pulse Ox 94 08/29/21 12:00 08/28/21 08/29/21 08/29/21 22:59 06:59 14:59 Output Total 250 / 250 Balance -250 / -250 Weight last 48 hrs Weight 63.957 kg Weight 62.278 kg Physical Exam Narrative: EXAM NARRATIVE: No acute distress. Neck supple. Lungs clear bilaterally. No respiratory distress Heart S1, S2, regular Abdomen is soft, bowel sounds are present. Appears comfortable Data : 08/26/21 06:12 08/26/21 06:12 A&P Assessment and plan (1) Acute CVA (cerebrovascular accident): Status: Acute (2) COPD (chronic obstructive pulmonary disease): Status: Acute (3) Dementia: Status: Acute (4) Dyslipidemia: Status: Acute (5) HTN (hypertension): Status: Chronic Additional A&P Information #Altered Mental status with underlying dementia #Recent CVA #Malnourished/Starvation secondary to dysphagia #Decubitus Ulcer - Patient was made comfort measures 08/26/2022 by family. Please see previous notes for details. She appears comfortable today. Will continue keeping her comfortable. Family to discuss on Sunday regarding placement with hospice. Attestations Medical Necessity Statement*: > 48 hours Coding Level of Care Code Acute Slicing Machine Operator/Tender for Justin Oconnell Diagnoses Acute CVA (cerebrovascular accident) I63.9 COPD (chronic obstructive pulmonary disease) J44.9 Dementia F03.90 Dyslipidemia E78.5 HTN (hypertension) I10
[2021-08-29 16:00] VITALS: BP 122/68; PULSE 76; RESP 32; TEMP 37.3; O2SAT 91
[2021-08-29 20:00] VITALS: BP 117/63; PULSE 80; RESP 17; TEMP 37.7; O2SAT 87
[2021-08-30] VITALS: BP 112/64; PULSE 75; RESP 15; TEMP 36.9; O2SAT 89
--- NOTE | 2021-08-30 01:28 | PC.NURSE ---
1999 Resting in bed on back. Resp e/u. No distress noted.
--- NOTE | 2021-08-30 01:29 | PC.NURSE ---
2200 Pt resting on left side. repositioned head. No distress.
--- NOTE | 2021-08-30 01:29 | PC.NURSE ---
0030 Resting on right side. Resp e/u. No signs of discomfort.
[2021-08-30 04:00] VITALS: BP 127/66; PULSE 66; RESP 15; TEMP 36.8; O2SAT 93
[2021-08-30 07:49] VITALS: BP 124/78; PULSE 75; RESP 17; TEMP 36.9; O2SAT 92
--- NOTE | 2021-08-30 11:11 | PM.DCS ---
Discharge Providers Date of Admission: 08/22/21 16:52 Date of Discharge: August 30, 2021 Attending Provider at Admission: Jane Rivera Attending Provider at Discharge: Izabel Kumar MD Primary Care Provider: JUAN MANUEL Matute Diagnoses at Discharge Discharge Diagnosis (1) Acute CVA (cerebrovascular accident): Status: Acute (2) COPD (chronic obstructive pulmonary disease): Status: Acute (3) Dementia: Status: Acute (4) Dyslipidemia: Status: Acute (5) HTN (hypertension): Status: Chronic Reason for Visit Reason for Visit: AMS Hospital Course Hospital Course Patient initially came with altered mental status with underlying dementia. She did have a recent CVA. Repeat head CT showed no abnormality. Pt has dysphagia and does not participate and does not follow any commands. Please see progress notes for further details. Patient also had a stage 3 decub present on admission. Family decided to elect for comfort measures. She will be sent home today with hospice services. Physical Exam Narrative: EXAM NARRATIVE: No acute distress. Neck supple. Lungs clear bilaterally. No respiratory distress Heart S1, S2, regular Abdomen is soft, bowel sounds are present. Appears comfortable Discharge Data Data Completed and Pending: Completed Studies During Hospitalization Category Date Time Status CT head wo con* 7 0450 Urgent Cat Scan 08/20/21 21:42 Completed XR chest [place] [id number] Urgent Exams 08/20/21 21:42 Completed Vitals: Last Vital Signs Temp 98.5 F 08/30/21 07:49 Pulse 75 08/30/21 07:49 Resp 17 08/30/21 07:49 BP 124/78 08/30/21 07:49 Pulse Ox 92 08/30/21 07:49 Discharge Plan Discharge Patient Disposition: Hospice - Home Condition: Fair Prescriptions: Discontinued diclofenac sodium [Voltaren] 1 % gel 2 g topical QID 30 Days Qty: 100 RF: 2 donepezil [Aricept] 5 mg tablet 5 mg PO DAILY Qty: 30 RF: 0 omeprazole magnesium [Prilosec OTC] 20 mg tablet,delayed release (DR/EC) 20 mg PO DAILY Qty: 1 RF: 0 albuterol sulfate [Ventolin HFA] 90 mcg/actuation HFA aerosol inhaler 2 puff INHALATION Q6H PRN (Reason: Shortness Of Breath) RF: 0 duloxetine 20 mg capsule,delayed release(DR/EC) 20 mg PO BID 30 Days Qty: 60 RF: 5 cholecalciferol (vitamin D3) [Vitamin D3] 25 mcg (1,000 unit) Tablet,Chewable 25 mcg PO DAILY@08 RF: 0 Adult Multivitamin Gummies 200 mcg Tablet,Chewable 1 tab PO DAILY RF: 0 aspirin 81 mg Tablet,Delayed Release (Dr/Ec) 81 mg PO DAILY Qty: 30 RF: 0 atorvastatin 40 mg Tablet 20 mg PO BEDTIME Qty: 30 RF: 0 levetiracetam 500 mg Tablet 500 mg PO BID@0900,2100 Qty: 60 RF: 0 clopidogrel 75 mg Tablet 75 mg PO DAILY Qty: 30 RF: 0 cefdinir 300 mg capsule 300 mg PO Q12H 5 Days Qty: 10 RF: 0 lisinopril 20 mg tablet 20 mg PO BID RF: 0 No Action (DME) blood pressure monitor [Blood Pressure Kit] Kit See Rx Instructions .ROUTE .MEDSUPPLY Qty: 1 RF: 0 Discharge Orders: Discharge Order (Routine); Ordered 08/30/21 Ordered By: Izabel Kumar [facility] [Outside] Discharge Activity: Bedrest Patient Instructions: Hospice Care (GEN) Activity Restrictions/Additional Instructions: Hospice referral at discharge. Meds to be done by hospice liason. Discharge Attestations Time Spent in Discharge Care*: greater than 30 min Status at Discharge: Cognitive status at discharge: cognitively intact, Behavioral status at discharge: cooperative, Quality Metrics Clinical Quality Measures During this hospital stay, did patient experience: None Coding Level of Care Code Acute g FW [place] note Diagnoses Acute CVA (cerebrovascular accident) I63.9 COPD (chronic obstructive pulmonary disease) J44.9 Dementia F03.90 Dyslipidemia E78.5 HTN (hypertension) I10
[2021-08-30 11:30] VITALS: BP 145/67; PULSE 83; RESP 17; TEMP 36.8; O2SAT 93
[2021-08-30 15:44] VITALS: BP 157/72; PULSE 88; RESP 18; TEMP 37; O2SAT 94
--- NOTE | 2021-08-30 18:40 | PC.NURSE ---
patient's discharge instructions given to EMS for patient's family. patient taken home via gurney by EMS.
[2021-08-30 18:41] VITALS: BP 157/72; PULSE 88; RESP 18; TEMP 37; O2SAT 94
== END 2021-08-30 18:41 | disposition hospice, home (50) | DRG 56 ==
LOC: ER 22:17 → MEDSURG 08-21 00:19
PROVIDERS: Internal Medicine; Admitting Provider Hospitalist; Emergency Provider Emergency Medicine; PCP Nurse Practitioner; Visit Provider Internal Medicine
DX: I69.391 Dysphagia following cerebral infarction (principal); L89.153 Pressure ulcer of sacral region, stage 3; I24.8 Other forms of acute ischemic heart disease; E46 Unspecified protein-calorie malnutrition; I69.398 Other sequelae of cerebral infarction; I69.320 Aphasia following cerebral infarction; R13.10 Dysphagia, unspecified; R41.82 Altered mental status, unspecified; Z87.440 Personal history of urinary (tract) infections; M81.0 Age-related osteoporosis without current pathological fracture; J44.9 Chronic obstructive pulmonary disease, unspecified; I25.10 Atherosclerotic heart disease of native coronary artery without angina pectoris; F03.90 Unspecified dementia, unspecified severity, without behavioral disturbance, psychotic disturbance, mood disturbance, and anxiety; E78.5 Hyperlipidemia, unspecified; F41.1 Generalized anxiety disorder; I10 Essential (primary) hypertension; G47.33 Obstructive sleep apnea (adult) (pediatric); F32.A Depression, unspecified; E83.42 Hypomagnesemia; I65.23 Occlusion and stenosis of bilateral carotid arteries; Z51.5 Encounter for palliative care; Z68.24 Body mass index [BMI] 24.0-24.9, adult; E86.0 Dehydration
CPT/HCPCS: 36415; 36416; 36600; 70450; 71045; 80053; 80069; 81003; 82803; 82962; 83605; 83735; 84145; 84443; 84484; 85025; 87040; 92507; 92523; 92526; 92610; 93005; 94664; 96365; 96367; 96372; 97110; 97162; 97165; 97530; 99285; G0378; J0696; J1644; J1953; J2060; J2270; J2543; J3370; J3475; J3480; J7030; J7040